=== PATIENT | male | born 1970 | race Caucasian/White ===

== ENCOUNTER 2016-07-19 01:48 | Emergency (ER) | payer OTHER ==
[~2016-07-19] VITALS: Ht 180.3 cm; Wt 109.0 kg
[~2016-07-19 01:48] MED LIST: BENZ1TAB2 PO; CYM60 PO; HMLI SC; INSUINJ4 SC; KLN1X PO; METF500T5 PO; OXYC1TAB3 PO; PRAZ5CAP2 PO; PRLSR20 PO; QUET1TAB34 PO; QUET1TAB37 PO; TOPI100T20 PO; ZOLP10TA PO
[2016-07-19 02:00] VITALS: TEMP 36.7; Ht 180.3 cm; Wt 109.0 kg
[2016-07-19] MEDS ORDERED: SODIUM CHLORIDE 0.9% 1000ML 1,000 ML IV ONE (02:15)
[2016-07-19] MEDS ORDERED: TRAZ100T29 PO (02:33)
[2016-07-19] MEDS ORDERED: BREX1TAB6 PO (02:34)
[2016-07-19 02:42] LABS: BASO % 0.1 %; BASO ABS # 0.01 K/uL (0-0.2); COMPLETE YES; EOS % 0.4 %; HEMATOCRIT 43.4 % (42-52); IG% 0.1 %; LYMPH % 26.8 %; LYMPH ABS # 1.79 K/uL (1.2-3.4); MEAN CELL VOLUME 87.1 fL (80-100); MEAN CORPUSCULAR HEMOGLOBIN 32.9 pg (25-34); MEAN CORPUSCULAR HGB CONC 37.8 g/dl (32-36); MEAN PLATELET VOLUME 10.5 fL (7.4-10.4); MONO % 6.7 %; NEUT % 65.9 %; PLATELET COUNT 126 K/uL (130-400); RED BLOOD COUNT 4.98 M/uL (4.7-6.1); WHITE BLOOD COUNT 6.67 K/uL (4.8-10.8)
[2016-07-19 03:11] LABS: ALT/SGPT 38 U/L (12-78); AST/SGOT 22 U/L (15-37); BLOOD UREA NITROGEN 8 mg/dl (7-18); BUN/CREATININE RATIO 9.2 (10-20); CALCIUM 8.9 mg/dl (8.5-10.1); CARBON DIOXIDE 24 mmol/L (21-32); CHLORIDE 105 mmol/L (98-107); CREATININE 0.86 mg/dl (0.60-1.40); GLUCOSE 165 mg/dl (70-99); POTASSIUM 2.9 mmol/L (3.5-5.1); SODIUM 142 mmol/L (136-145)
[2016-07-19 03:22] LABS: ALB/GLOB RATIO 1.4 (0.9-2); ALKALINE PHOSPHATASE 62 U/L (45-117)
[2016-07-19] MEDS ORDERED: POTASSIUM CHLORIDE 10 MEQ / 100ML WTR IV STA (05:41)
--- NOTE | 2016-07-19 05:52 | EMERGENCY ROOM VISIT NOTE ---
History First contact with patient: 01:48 Chief Complaint: FALL Stated Complaint: FALL/SYNCOPE History of Present Illness The patient is a 45 year old male who presents to the Emergency Room for evaluation of a fall versus syncopal episode that occurred about 45 minutes prior to arrival. Around 1 AM the patient was reportedly in his kitchen with his girlfriend cooking dinner. The patient reports that he became dizzy, and either passed out or fell. The patient was with loss of consciousness for 5-10 minutes according to the girlfriend. The patient arrives via ambulance with a hard cervical spine collar in place. The patient does not have reports of chest pain, chest tightness, shortness of breath, or extremity injury. The patient history is somewhat limited, as the patient is not distinctly recall all of the events that occurred. His girlfriend is not present here in the department for further questioning. The patient reports a mild headache and rates his discomfort a 5/10. He is a diabetic, but is not on blood thinners. Review of Systems More than 10 systems were reviewed and otherwise negative with the exception of history of present illness. Past Medical/Surgical History Medical Problems: (1) Benign hypertension (2) Bipolar disorder (3) Cholecystitis (4) Diabetes (5) Gastroesophageal reflux disease (6) History of cholecystectomy (7) Mood disorder (8) Right shoulder pain Family History Diabetes mellitus FH: heart disease Hypertension Social History Smoking Status: Never Smoker Alcohol Use: occasionally Drug Use: none Marital Status: Housing Status: lives with family Occupation Status: unemployed Current/Historical Medications Scheduled Benztropine Mesylate (Cogentin), 1 MG PO BID Brexpiprazole (Rexulti), 4 MG PO DIRECTED Clonazepam (Clonazepam), 1 MG PO TID Duloxetine HCl (Duloxetine HCl), 60 MG PO QAM Insulin Glargine (Lantus Solostar Pen), 24 UNITS SC HS Insulin Lispro (Humalog), 6 UNITS SC TIDM Metformin Hcl Er (Glucophage Er), 500 MG PO BID Omeprazole (Prilosec), 40 MG PO BID Prazosin Hcl (Prazosin), 2 MG PO HS Quetiapine Fumarate (Seroquel), 100 MG PO QAM Topiramate (Topamax), 100 MG PO BID Trazodone Hcl (Trazodone), 100 MG PO HS Zolpidem Tartrate (Ambien), 10 MG PO HS Allergies Coded Allergies: Ziprasidone (Verified Allergy, Severe, FACIAL SWELLING; RASH, 07/19/16) Chlorpromazine (Unverified Allergy, Unknown, unknown, 07/19/16) Physical Exam Vital Signs Date Time Temp Pulse Resp B/P Pulse Ox O2 Delivery O2 Flow Rate FiO2 07/19/16 05:13 85 18 135/68 97 Room Air 07/19/16 05:06 82 07/19/16 03:43 91 18 112/86 97 Room Air 07/19/16 02:00 36.7 85 18 125/82 97 Room Air 07/19/16 01:58 88 Physical Exam VITALS: Vitals are noted on the nurse's note and reviewed by myself. Vital signs stable. GENERAL: White male who is resting comfortably in his Emergency Department bed. He is not answering questions appropriately. He does appear confused. HEAD: Normocephalic atraumatic. EARS: External ear normal. External auditory canals clear, tympanic membranes pearly cook without erythema or effusion bilaterally. EYES: Pupils equal round and reactive to light and accommodation. Conjunctivae without injection, sclerae without icterus. Extraocular movements intact. NOSE: Patent, turbinates without inflammation or discharge. MOUTH: Mucous membranes moist. Tonsils are not enlarged. Pharynx without erythema, blood, or exudate. Uvula midline. Airway patent. NECK: Supple without nuchal rigidity. No lymphadenopathy. No thyromegaly. Cervical spine is nontender. HEART: Regular rate and rhythm without murmurs gallops or rubs. LUNGS: Clear to auscultation bilaterally without wheezes, rales or rhonchi. No retractions or accessory muscle use. MUSCULOSKELETAL: No muscle atrophy, erythema, or edema noted. Full range of motion without joint tenderness in all extremities. No obvious weakness. NEURO: Patient was not alert or oriented Medical Decision & Procedures ER Provider Diagnostic Interpretation: Preliminary Findings Only See Final Report For Complete Findings ADDENDUM - Added by Jordan Hernandez M.D. on 07/19/2016 4:23 AM (-08:00) Additional images available. Slight hyperdensity medial occipital lobe remains and may represent subarachnoid hemorrhage. mild hyperdensity along the tentorium bilaterally although more prominent on the left side. DDX includes small layering subdural hematomas although thought less likely, recent contrast administration or possibly dural sinus thrombosis. Correlate clinically and consider CT follow-up with coronal and sagittal imaging or MRI/MRV as appropriate CT HEAD: Prior 04/07/16 Minimal hyperdensity in the left occipital lobe medial to the occipital horn is new since prior. Possible small amount of subarachnoid hemorrhage. Mildly hyperdense asymmetric left tentorium more prominent than the prior study. Possible small layering left subdural hematoma. No midline shift, mass effect. No skull fracture. Partially visualized paranasal sinuses and mastoid air cells are clear CT C SPINE: No fracture or malalignment. No prevertebral soft tissues swelling Laboratory Results 07/19/16 02:00 Red Blood Count 4.98, Mean Corpuscular Volume 87.1, Mean Corpuscular Hemoglobin 32.9, Mean Corpuscular Hemoglobin Concent 37.8, Mean Platelet Volume 10.5, Neutrophils (%) (Auto) 65.9, Lymphocytes (%) (Auto) 26.8, Monocytes (%) (Auto) 6.7, Eosinophils (%) (Auto) 0.4, Basophils (%) (Auto) 0.1, Neutrophils # (Auto) 4.38, Lymphocytes # (Auto) 1.79, Monocytes # (Auto) 0.45, Eosinophils # (Auto) 0.03, Basophils # (Auto) 0.01 07/19/16 02:00 Test 07/19/16 02:00 07/19/16 02:05 White Blood Count 6.67 K/uL (4.8-10.8) Red Blood Count 4.98 M/uL (4.7-6.1) Hemoglobin 16.4 g/dL (14.0-18.0) Hematocrit 43.4 % (42-52) Mean Corpuscular Volume 87.1 fL (80-100) Mean Corpuscular Hemoglobin 32.9 pg (25-34) Mean Corpuscular Hemoglobin Concent 37.8 g/dl (32-36) Platelet Count 126 K/uL (130-400) Mean Platelet Volume 10.5 fL (7.4-10.4) Neutrophils (%) (Auto) 65.9 % Lymphocytes (%) (Auto) 26.8 % Monocytes (%) (Auto) 6.7 % Eosinophils (%) (Auto) 0.4 % Basophils (%) (Auto) 0.1 % Neutrophils # (Auto) 4.38 K/uL (1.4-6.5) Lymphocytes # (Auto) 1.79 K/uL (1.2-3.4) Monocytes # (Auto) 0.45 K/uL (0.11-0.59) Eosinophils # (Auto) 0.03 K/uL (0-0.5) Basophils # (Auto) 0.01 K/uL (0-0.2) RDW Standard Deviation 41.1 fL (36.4-46.3) RDW Coefficient of Variation 12.8 % (11.5-14.5) Immature Granulocyte % (Auto) 0.1 % Immature Granulocyte # (Auto) 0.01 K/uL (0.00-0.02) Prothrombin Time 11.0 SECONDS (9.0-12.0) Prothromb Time International Ratio 1.0 (0.9-1.1) Activated Partial Thromboplast Time 25.1 SECONDS (21.0-31.0) Partial Thromboplastin Ratio 1.0 Anion Gap 13.0 mmol/L (3-11) Est Creatinine Clear Calc Drug Dose 134.7 ml/min Estimated GFR () 120.5 Estimated GFR (Non- 104.0 BUN/Creatinine Ratio 9.2 (10-20) Calcium Level 8.9 mg/dl (8.5-10.1) Total Bilirubin 0.9 mg/dl (0.2-1) Aspartate Amino Transf (AST/SGOT) 22 U/L (15-37) Alanine Aminotransferase (ALT/SGPT) 38 U/L (12-78) Alkaline Phosphatase 62 U/L (45-117) Troponin I < 0.015 ng/ml (0-0.045) Total Protein 7.3 gm/dl (6.4-8.2) Albumin 4.2 gm/dl (3.4-5.0) Globulin 3.1 gm/dl (2.5-4.0) Albumin/Globulin Ratio 1.4 (0.9-2) Lipase 270 U/L (73-393) Thyroid Stimulating Hormone (TSH) 3.060 uIu/ml (0.300-4.500) Medications Administered Medications (Trade) Dose Ordered Sig/Adelina Route Start Time Stop Time Status Last Admin Dose Admin Sodium Chloride (Nss 1000ml) 1,000 ml @ 999 mls/hr Q1H1M ONCE IV 07/19/16 02:15 07/19/16 03:15 DC 07/19/16 02:09 999 MLS/HR ED Course Physical exam and history were performed. Nursing notes and EMR were reviewed. Patient appears to have suffered a fall versus syncopal episode prior to arrival. Patient is fairly well-known to the emergency department, and although he has an odd affect at baseline, he does appear altered from his norm. The patient is in a hard cervical spine collar and is having difficulty answering questions appropriately. He does not have significant outward signs of trauma on exam. IV access was established and labs were obtained. The patient was hydrated with normal saline. CT scans of head and neck were performed. The case was discussed with my attending physician, Dr. Coelho, who remained closely involved in patient care decision making. The patient's blood work is as above and was reviewed. He does not have a significant elevated white blood cell count, anemia, bandemia, or gross electrolyte imbalance. INR is 1.0. Potassium is 2.9 and this was repleted through the IV. His sugar is elevated at 165, but he is diabetic. Troponin is negative 1. The patient CT scans are as above, and I discussed them with the radiologist. The patient appears to have both a subarachnoid and subdural bleed. We were able to contact the patient's girlfriend, Lucina Shaw ([phone]), who was not able to get in touch with the patient's parents. Unfortunately we do not have trauma or neurosurgical services at this facility, and he will need to be transfered to tertiary care facility. The patient case was discussed with [facility], [facility] and [facility], who accepts the patient in transfer. The patient remained in stable condition throughout his remaining emergency room course. He was transferred via ALS. The chart was completed utilizing [employer] Speech Voice Recognition Software. Grammatical errors, random word insertions, pronoun errors, and incomplete sentences are an occasional consequence of this system due to software limitations, ambient noise, and hardware issues. Any formal questions or concerns about the content, text, or information contained within the body of this dictation should be directly addressed to the provider for clarification. . Medical Decision Differential diagnosis: Etiologies such as fracture, dislocation, intra-abdominal, pneumothorax, intrathoracic , intracranial, neurologic, as well as other traumatic pathologies were entertained. Impression Primary Impression: Head injury with loss of consciousness Additional Impressions: Subarachnoid bleed, Subdural bleeding, Altered mental status Critical Care I have personally spent greater than 60 minutes of critical care time in the direct management of this patient. This includes bedside care, interpretation of diagnostic studies, and testing, discussion with consultants, patient, and family members, and other required patient management activities. This 60 minutes is in excess of all separately billable procedures. Departure Information Referrals Ada Bagley M.D. (PCP) Patient Instructions A Signature Page, My [facility]
[2016-07-19 06:27] VITALS: BP 117/79; PULSE 85; O2SAT 98
--- NOTE | 2016-07-19 07:17 | DIAGNOSTIC IMAGING REPORT ---
CT OF THE CERVICAL SPINE CLINICAL HISTORY: Neck pain status post trauma. Dizziness. COMPARISON STUDY: 04/07/2016 CT DOSE: 1176.79 mGy.cm TECHNIQUE: CT scan of the cervical spine was performed from the skull base to the thoracic inlet. Images are reviewed in the axial, sagittal, and coronal planes. IV contrast was not administered for this examination. FINDINGS: The visualized portions of the lung apices reveal no evidence of pneumothorax. The prevertebral soft tissues are normal. No fractures or subluxations are visualized. There is slight hyperdensity of the tentorium. Please see head CT report. IMPRESSION: No evidence of acute fracture or traumatic subluxation. Electronically signed by: Jimmy Willis M.D. 07/19/2016 7:15 AM
--- NOTE | 2016-07-19 07:29 | DIAGNOSTIC IMAGING REPORT ---
CT OF THE HEAD WITHOUT CONTRAST CLINICAL HISTORY: Fall. Dizziness. COMPARISON STUDY: Head CT April 07, 2016. TECHNIQUE: Helical axial images of the head were obtained without IV contrast. Automated exposure control was utilized for the study. FINDINGS: There is slight asymmetric hyperdensity along the left aspect of the tentorium which is new since head CT of April 07, 2016. There is a punctate hyperdense focus along the left posterior lateral aspect of the fourth ventricle shown on axial image 9. There is also subtle hyperdensity adjacent to the occipital horn of the left lateral ventricle within the occipital lobe shown on image 16 of 32. The basilar cisterns are patent. There may be trace hemorrhage along the inferior falx as well. No calvarial fracture is identified. IMPRESSION: 1. Subtle hyperdensity along the tentorium, greater on the left which is new since prior head CT. The findings suggests trace acute subdural blood. 2. Small hyperdense focus within the left occipital lobe, adjacent to the occipital horn of the left lateral ventricle which could reflect trace hemorrhage, possibly subarachnoid. 3. Suspected punctate hemorrhage along the left posterior lateral aspect of the fourth ventricle as well as the inferior falx. A short-term follow-up head CT in 12 to 24 hours is recommended to reevaluate these sites of intracranial hemorrhage. Electronically signed by: Harpal Buck M.D. 07/19/2016 7:27 AM
== END 2016-07-19 06:30 | disposition short-term general hospital (02) ==
LOC: C.EDA 01:48 → EDBD 01:48 → C.EDA 06:30
DX: S06.6X1A Traumatic subarachnoid hemorrhage with loss of consciousness of 30 minutes or less, initial encounter (principal); S06.5X1A Traumatic subdural hemorrhage with loss of consciousness of 30 minutes or less, initial encounter; R42 Dizziness and giddiness; R41.82 Altered mental status, unspecified; E11.65 Type 2 diabetes mellitus with hyperglycemia; Z79.84 Long term (current) use of oral hypoglycemic drugs; Z79.4 Long term (current) use of insulin; F31.9 Bipolar disorder, unspecified; K21.9 Gastro-esophageal reflux disease without esophagitis; I10 Essential (primary) hypertension; W19.XXXA Unspecified fall, initial encounter; Y93.G3 Activity, cooking and baking; Y92.010 Kitchen of single-family (private) house as the place of occurrence of the external cause; Y99.8 Other external cause status

== ENCOUNTER 2017-04-30 14:21 | Emergency (ER) | payer OTHER ==
[~2017-04-30] VITALS: Ht 182.9 cm; Wt 108.0 kg
[~2017-04-30 14:21] MED LIST changes: +BREX1TAB6 PO; -OXYC1TAB3 PO; -QUET1TAB37 PO; +TRAZ100T29 PO
[2017-04-30 14:28] VITALS: TEMP 36.3; Ht 182.9 cm; Wt 108.0 kg
[2017-04-30] MEDS ORDERED: HALO5TAB PO (14:55)
[2017-04-30] MEDS ORDERED: PNC/500 PO (14:55)
[2017-04-30] MEDS ORDERED: TEMA30CA4 PO (14:55)
[2017-04-30] MEDS ORDERED: PRAZ2CAP2 PO (14:55)
[2017-04-30] MEDS ORDERED: TRAZ1TAB52 PO (14:55)
[2017-04-30] MEDS ORDERED: CYM20 PO (14:55)
[2017-04-30] MEDS ORDERED: DIAZ-165 PO (14:55)
[2017-04-30] MEDS ORDERED: DIAZ10TA PO (14:55)
[2017-04-30 15:28] LABS: BASO % 0.1 %; BASO ABS # 0.01 K/uL (0-0.2); COMPLETE YES; EOS % 0.1 %; HEMATOCRIT 45.2 % (42-52); IG% 0.1 %; LYMPH % 13.4 %; LYMPH ABS # 0.91 K/uL (1.2-3.4); MEAN CELL VOLUME 86.9 fL (80-100); MEAN CORPUSCULAR HEMOGLOBIN 32.3 pg (25-34); MEAN CORPUSCULAR HGB CONC 37.2 g/dl (32-36); MEAN PLATELET VOLUME 11.1 fL (7.4-10.4); MONO % 6.2 %; NEUT % 80.1 %; PLATELET COUNT 123 K/uL (130-400); WHITE BLOOD COUNT 6.78 K/uL (4.8-10.8)
--- NOTE | 2017-04-30 15:33 | EMERGENCY ROOM VISIT NOTE ---
History First contact with patient: 14:39 Chief Complaint: SYNCOPE Stated Complaint: DIZZINESS Nursing Triage Summary: pt to the ED via EMS from home where he had 2 syncopal episodes and he states he has been feeling under the weather with n/v and trouble with his 17 year old son History of Present Illness The patient is a 46 year old male who presents to the Emergency Room with complaints of syncope -Pt describes one syncopal episode this afternoon when standing from seated position. -Pt reports being in a argument with his son prior to the episode and reports being very emotional. Pt said that he was fuming about the argument and when he stood up he began to feel very dizzy and loss consciousness -There was no witness to his fall, but the patient denies hitting his head when falling. The patient says that his watch case polisher was in the other room at the time of the fall and heard him fall and subsequently urged him to come to the ED to be evaluated. -The patient has no complaints currently, except for feeling fatigued. -Prior to the fall, pt denies CP, SOB, visual changes -Pt denies recent h/o CP, SOB, cough, palpation, leg swelling -Pt denies a PMH of seizure. -No recent viral infection. No tinnitus or ear pain. -After the episode, the pt denies any weakness or sensation loss. -Pt has a PMHx of Schizophrenia, PTSD or anxiety -Pt has seen a snowmaker in the past after episodes of what he describes as anxiety attacks. Pt reports normal workup at that time -Pt does report PMHx of T2DM. Review of Systems see below Constitutional: No fever, No chills, No sweats Respiratory: No cough, No sputum, No wheezing, No shortness of breath Cardiovascular: No chest pain, No orthopnea, No edema, No palpitations Abdomen: No pain, No nausea, No vomiting, No diarrhea Neurologic: No memory loss, No paralysis, No weakness, No numbness/tingling , No balance problems Psychiatric: + anxiety Past Medical/Surgical History Medical Problems: (1) Benign hypertension (2) Bipolar disorder (3) Cholecystitis (4) Diabetes (5) Gastroesophageal reflux disease (6) History of cholecystectomy (7) Mood disorder (8) Right shoulder pain Family History Diabetes mellitus FH: heart disease Hypertension Social History Smoking Status: Never Smoker Smokeless Tobacco Use: Yes Alcohol Use: occasionally Drug Use: none Marital Status: Housing Status: lives with family Occupation Status: unemployed Current/Historical Medications Scheduled Brexpiprazole (Rexulti), 4 MG PO DAILY Diazepam (Valium), 5 MG PO DAILY@1700 Diazepam (Valium), 10 MG PO BID Duloxetine HCl (Duloxetine HCl), 20 MG PO DAILY Haloperidol (Haldol), 7.5 MG PO DAILY Metformin Hcl Er (Glucophage Er), 500 MG PO BID Omeprazole (Prilosec), 40 MG PO DAILY Penicillin V Potassium (Penicillin V Potassium), 500 MG PO QID Prazosin Hcl (Prazosin), 2 MG PO TID Temazepam (Restoril), 30 MG PO HS Trazodone Hcl (Desyrel), 300 MG PO HS Physical Exam Vital Signs Date Time Temp Pulse Resp B/P (MAP) Pulse Ox O2 Delivery O2 Flow Rate FiO2 04/30/17 16:42 73 20 111/76 94 Room Air 04/30/17 14:38 Nasal Cannula 2.0 04/30/17 14:28 86 04/30/17 14:28 36.3 93 20 112/83 88 Room Air Physical Exam see below General Appearance: WD/WN, no apparent distress Head: normocephalic, atraumatic Eyes: normal inspection, PERRL, EOMI, sclerae normal, funduscopic exam normal Respiratory/Chest: chest non-tender, lungs clear, normal breath sounds, no respiratory distress, no accessory muscle use Cardiovascular: regular rate, rhythm, no edema, no gallop, no murmur Neurologic/Psych: director wholesale II-XII nml as tested, no motor/sensory deficits, alert , normal mood/affect, normal reflexes, oriented x 3 Medical Decision & Procedures Laboratory Results 04/30/17 15:10 Red Blood Count 5.20, Mean Corpuscular Volume 86.9, Mean Corpuscular Hemoglobin 32.3, Mean Corpuscular Hemoglobin Concent 37.2, Mean Platelet Volume 11.1, Neutrophils (%) (Auto) 80.1, Lymphocytes (%) (Auto) 13.4, Monocytes (%) (Auto) 6.2, Eosinophils (%) (Auto) 0.1, Basophils (%) (Auto) 0.1, Neutrophils # (Auto) 5.42, Lymphocytes # (Auto) 0.91, Monocytes # (Auto) 0.42, Eosinophils # (Auto) 0.01, Basophils # (Auto) 0.01 04/30/17 15:10 Test 04/30/17 15:10 04/30/17 15:41 White Blood Count 6.78 K/uL (4.8-10.8) Red Blood Count 5.20 M/uL (4.7-6.1) Hemoglobin 16.8 g/dL (14.0-18.0) Hematocrit 45.2 % (42-52) Mean Corpuscular Volume 86.9 fL (80-100) Mean Corpuscular Hemoglobin 32.3 pg (25-34) Mean Corpuscular Hemoglobin Concent 37.2 g/dl (32-36) Platelet Count 123 K/uL (130-400) Mean Platelet Volume 11.1 fL (7.4-10.4) Neutrophils (%) (Auto) 80.1 % Lymphocytes (%) (Auto) 13.4 % Monocytes (%) (Auto) 6.2 % Eosinophils (%) (Auto) 0.1 % Basophils (%) (Auto) 0.1 % Neutrophils # (Auto) 5.42 K/uL (1.4-6.5) Lymphocytes # (Auto) 0.91 K/uL (1.2-3.4) Monocytes # (Auto) 0.42 K/uL (0.11-0.59) Eosinophils # (Auto) 0.01 K/uL (0-0.5) Basophils # (Auto) 0.01 K/uL (0-0.2) RDW Standard Deviation 41.0 fL (36.4-46.3) RDW Coefficient of Variation 12.8 % (11.5-14.5) Immature Granulocyte % (Auto) 0.1 % Immature Granulocyte # (Auto) 0.01 K/uL (0.00-0.02) Activated Partial Thromboplast Time 24.5 SECONDS (21.0-31.0) Partial Thromboplastin Ratio 0.9 Anion Gap 10.0 mmol/L (3-11) Est Creatinine Clear Calc Drug Dose 133.3 ml/min Estimated GFR () 119.1 Estimated GFR (Non- 102.8 BUN/Creatinine Ratio 7.1 (10-20) Calcium Level 8.1 mg/dl (8.5-10.1) Magnesium Level 2.1 mg/dl (1.8-2.4) Total Bilirubin 0.8 mg/dl (0.2-1) Aspartate Amino Transf (AST/SGOT) 30 U/L (15-37) Alanine Aminotransferase (ALT/SGPT) 50 U/L (12-78) Alkaline Phosphatase 72 U/L (45-117) Troponin I < 0.015 ng/ml (0-0.045) Total Protein 6.7 gm/dl (6.4-8.2) Albumin 3.6 gm/dl (3.4-5.0) Globulin 3.1 gm/dl (2.5-4.0) Albumin/Globulin Ratio 1.2 (0.9-2) Venous Blood pH 7.45 (7.36-7.41) Venous Blood Partial Pressure CO2 34 mmHg (38.0-50.0) Venous Blood Partial Pressure O2 60 mmHg Venous Blood HCO3 23 mmol/L Venous Blood Oxygen Saturation 90.2 % Venous Blood Base Excess 0.0 mEq/L Medications Administered Medications (Trade) Dose Ordered Sig/Adelina Route Start Time Stop Time Status Last Admin Dose Admin Potassium Chloride (Vero Ciel Elix) 40 meq NOW STAT PO 04/30/17 16:26 04/30/17 16:28 DC 04/30/17 16:45 40 MEQ ECG Indication: syncope Rate (beats per minute): 79 Rhythm: sinus rhythm Findings: no ectopy, other (possible LV enlargement ) ED Course 1500 History and physical performed 1510 labs imaging ordered 1530 accessed labs, CXR, ECG 1600 Reaccessed 02 on 1L 1630 Pt off 02--> 97 % 1700 Pt ready for discharge Medical Decision 46 yo male comes into the ED with one episode of syncope Considering the following differential: vasovagal syncope, orthostatic hypotension, arrhythmia, aortic stenosis, carotid stenosis, panic attacks, hypoglycemia, anemia, seizure Pt reports recently being under more intense stress. He reports syncopal episodes in the past when having panic attacks. Pt had normal troponin, normal EKG. Pt did have low potassium. Supplementation was administered. When the patient arrived to the ED his O2 Sats were 88%. 1 L of O2 was given and the patients sats went back up to 97% and remained in the high 90's after discontinuing O2. Considering low O2 sats, CXR and VBG's were ordered. Pt was not seen to be retaining CO2 and CXR did not show any acute pathology. Sats on admission appears to be an aberrant reading. Pt syncopal episode is most likely vasovagal in etiology. Head CT was not ordered at this time for the following reasons: pt denies head injury, no signs of injury on physical exam, normal neurologic exam. Pt was discharged and advised to follow-up with PCP. Impression Primary Impression: Syncope Departure Information Dispostion Home / Self-Care Condition GOOD Referrals Ada Bagley M.D. (PCP) Patient Instructions My [facility] Additional Instructions Mr. Arce, You came to the ED to be evaluated after passing out and falling. We did some test to check you cardiac function. All test were normal, except for a slightly low potassium level. We gave you a supplement for this in the hospital. Alterations in you heart rate could be the likely cause of your passing out. This is more so likely considering the stress that you report being under. Please follow up with your primary care physician in the next week. If the symptoms of lightheadedness or passing out persist, please follow up sooner.
[2017-04-30 15:37] LABS: PARTIAL THROMBOPLASTIN RATIO 0.9
--- NOTE | 2017-04-30 15:43 | EMERGENCY ROOM VISIT NOTE ---
ED Visit Note First contact with patient: 14:39 The patient was seen and examined with Dr. Cabrera-alisha. I agree with the history, physical and findings. Please see the note for disposition and details. Patient presented s/p syncope. Patient no h/o of seizures. No obvious signs of trauma. A benign and non-focal neuro exam. EKG w/o acute arrythmia that would require medical intervention noted. Patient mother stated this has happened before 2 to stress. He was stressed at time of incident. Also of note, had positional change. Patient did have ?hypoxia initially; however, after placing pulse ox and a separate finger, patient had normal O2. Less likely PE given Wells 0. Non focal neuro exam, no blood thinners, no obvious signs of trauma, no need for CT brain and less likely ICH/CVA. Patient tolerated PO. Blood work fairly unremarkable. D/c'ed to home.
[2017-04-30 15:50] LABS: VEN BLD GAS O2 SATURATION 90.2 %
[2017-04-30 15:51] LABS: ALT/SGPT 50 U/L (12-78); AST/SGOT 30 U/L (15-37); BLOOD UREA NITROGEN 6 mg/dl (7-18); BUN/CREATININE RATIO 7.1 (10-20); CALCIUM 8.1 mg/dl (8.5-10.1); CARBON DIOXIDE 23 mmol/L (21-32); CHLORIDE 104 mmol/L (98-107); CREATININE 0.87 mg/dl (0.60-1.40); GLUCOSE 220 mg/dl (70-99); MAGNESIUM 2.1 mg/dl (1.8-2.4); POTASSIUM 3.1 mmol/L (3.5-5.1); SODIUM 137 mmol/L (136-145)
[2017-04-30 15:54] LABS: ALB/GLOB RATIO 1.2 (0.9-2); ALKALINE PHOSPHATASE 72 U/L (45-117)
[2017-04-30] MEDS ORDERED: MAGNESIUM OXIDE 400 MG TAB PO STA (16:26)
[2017-04-30] MEDS ORDERED: POTASSIUM CHLORIDE 20 MEQ/15 ML UDC PO STA (16:26)
--- NOTE | 2017-04-30 16:27 | DIAGNOSTIC IMAGING REPORT ---
CHEST 2 VIEWS ROUTINE HISTORY: 46 years-old Male o2 sats 90% RA acute hypoxia COMPARISON: Chest radiograph 01/19/2016 TECHNIQUE: Frontal and lateral views of the chest FINDINGS: Cardiomediastinal and hilar silhouettes are within normal limits. No pneumothorax, pleural effusion, focal airspace consolidation or overt pulmonary edema. Bones of the chest are grossly intact. Surgical clips of the upper abdomen suggest prior cholecystectomy, however not seen on the frontal view. IMPRESSION: No acute cardiopulmonary process. The above report was generated using voice recognition software. It may contain grammatical, syntax or spelling errors. Electronically signed by: Damion Maki M.D. 04/30/2017 4:26 PM Dictated Date/Time: 04/30/2017 4:25 PM
[2017-04-30 16:42] VITALS: BP 111/76; PULSE 73; O2SAT 94
== END 2017-04-30 16:59 | disposition home or self-care (01) ==
LOC: EDBD 14:21 → C.EDC 14:22
DX: R55 Syncope and collapse (principal); E11.9 Type 2 diabetes mellitus without complications; I10 Essential (primary) hypertension; K21.9 Gastro-esophageal reflux disease without esophagitis; F17.290 Nicotine dependence, other tobacco product, uncomplicated; Z90.49 Acquired absence of other specified parts of digestive tract; Z83.3 Family history of diabetes mellitus; Z82.49 Family history of ischemic heart disease and other diseases of the circulatory system; Z79.84 Long term (current) use of oral hypoglycemic drugs; Z79.899 Other long term (current) drug therapy

== ENCOUNTER 2017-05-25 18:37 | Emergency (ER) | payer OTHER ==
[~2017-05-25] VITALS: Ht 182.9 cm; Wt 109.6 kg
[~2017-05-25 18:37] MED LIST changes: -BENZ1TAB2 PO; +CYM20 PO; -CYM60 PO; +DIAZ-165 PO; +DIAZ10TA PO; +HALO5TAB PO; -HMLI SC; -INSUINJ4 SC; -KLN1X PO; +PNC/500 PO; +PRAZ2CAP2 PO; -PRAZ5CAP2 PO; -QUET1TAB34 PO; +TEMA30CA4 PO; -TOPI100T20 PO; -TRAZ100T29 PO; +TRAZ1TAB52 PO; -ZOLP10TA PO
[2017-05-25 18:52] VITALS: BP 169/100; PULSE 83; TEMP 36.9; O2SAT 96; Ht 182.9 cm; Wt 109.6 kg
[2017-05-25] MEDS ORDERED: HYDROCODONE/ACETAMOPHEN 5/325MG TAB PO STA (19:33)
--- NOTE | 2017-05-25 19:44 | EMERGENCY ROOM VISIT NOTE ---
ED Visit Note First contact with patient: 19:04 CHIEF COMPLAINT: Dental pain HISTORY OF PRESENT ILLNESS: This 46-year-old male patient presented to the emergency department with complaint of "mouth pain" for several weeks. He states that he has been seen by his dentist and was referred to see an oral surgeon, and is scheduled to have all of his teeth extracted on 06/20. He states that he has been placed on penicillin, which she has been taking. He states that his dentist has given him prescriptions for pain medicine previously , but he states he has run out of these and is here to see if we will give him any refills. They rate their pain a 10/10 and the ibuprofen and Tylenol they have been taking has not relieved the pain. Denies facial swelling, discharge from the mouth, difficulty swallowing, voice, difficulty breathing, fevers or chills. REVIEW OF SYSTEMS: A 6 system review of systems was completed with positives and pertinent negatives listed in the HPI. ALLERGIES: Reviewed in chart MEDICATIONS: Reviewed in chart PMH: Reviewed in chart SOCIAL HISTORY: Lives at home. States that he chews tobacco, but is trying to quit. PHYSICAL EXAM: Vitals are noted on the nurse's note and reviewed by myself. Vital signs stable, afebrile. GENERAL: Cooperative, in no acute distress, non- diaphoretic, well-developed well-nourished. Mouth: All the existing teeth are very carious, multiple broken off. The gum is not swollen or tender in any area of the mouth. No discharge or signs of an abscess. No edema in the floor of the mouth. The remainder of the pharynx and tonsils are without erythema, edema, or exudate. The airway is patent. There is no facial swelling, cervical or submandibular lymphadenopathy. The patient has overall very poor dental hygiene. EARS: External auditory canals clear, tympanic membranes pearly cook without erythema or effusion bilaterally. ED COURSE: I examined the patient. The patient appears calm, persistently rates his pain as 10/10, and is noted to sit in a chair in the exam room texting on his phone. I examined the patient, his teeth are very carious and overall very poor dental hygiene, but no evidence of acute gingivitis or periapical abscess. There is no facial swelling. Patient cannot pinpoint a particular tooth that is bothering him, so I do not see a utility in attempting a dental block at this time, as he states all of his teeth hurt. The patient states he is specifically here to get a refill of Vicodin. He states he did not discuss this with his dentist, who has provided him prescriptions for this recently. The patient is on multiple benzodiazepines which he states are for treatment of his schizophrenia. After examining the patient and reviewing his chart, I discussed with the patient that I am not comfortable providing him with a prescription for narcotics given multiple recent scripts provided by his dental provider, as well as his multiple benzodiazepines. I did offer him a single dose of Runge here to temporarily improve his pain, which he initially agreed to. I began to discuss [id number] medication management as well as nonpharmacologic management for the patient's pain, at which point he began to text on his phone. He then stated "don't bother giving me that 1 pill, if you aren't going to give me a prescription then just discharged me." The patient was encouraged to keep his scheduled appointment with his oral surgeon and to discuss pain management with his dentist. I discussed concerning symptoms that should prompt return to the emergency department with the patient, he verbalized understanding. Patient was discharged home in stable condition and ambulatory. Problem List Medical Problems: (1) Benign hypertension Status: Chronic (2) Bipolar disorder Status: Chronic (3) Cholecystitis Status: Resolved (4) Diabetes Status: Chronic (5) Gastroesophageal reflux disease Status: Chronic (6) History of cholecystectomy Status: Resolved (7) Mood disorder Status: Chronic (8) Right shoulder pain Status: Resolved Current/Historical Medications Scheduled Brexpiprazole (Rexulti), 4 MG PO DAILY Diazepam (Valium), 5 MG PO DAILY@1700 Diazepam (Valium), 10 MG PO BID Duloxetine HCl (Duloxetine HCl), 20 MG PO DAILY Haloperidol (Haldol), 7.5 MG PO DAILY Metformin Hcl Er (Glucophage Er), 500 MG PO BID Omeprazole (Prilosec), 40 MG PO DAILY Penicillin V Potassium (Penicillin V Potassium), 500 MG PO QID Prazosin Hcl (Prazosin), 2 MG PO TID Temazepam (Restoril), 30 MG PO HS Trazodone Hcl (Desyrel), 300 MG PO HS Allergies Coded Allergies: Ziprasidone (Verified Allergy, Severe, FACIAL SWELLING; RASH, 07/19/16) Chlorpromazine (Unverified Allergy, Unknown, unknown, 07/19/16) Vital Signs Date Time Temp Pulse Resp B/P (MAP) Pulse Ox O2 Delivery O2 Flow Rate FiO2 05/25/17 18:52 36.9 83 20 169/100 96 Room Air Departure Information Impression Primary Impression: Dental caries Additional Impressions: Pain, dental Poor dentition Dispostion Home / Self-Care Condition GOOD Referrals No Doctor, Assigned (PCP) Patient Instructions ED Tooth Pain, My [facility] [address] Additional Instructions Call your dentist or oral surgeon who have provided prescriptions for pain medication to you in the past, to discuss possible refills of this medication. Continue taking the penicillin as prescribed for the full course. You may take ibuprofen 600 mg (3 regular strength tablets) every 6-8 hours and/ or Tylenol 1000 mg (2 extra strength tablets) every 8 hours as needed for your pain. You can also swish and spit with warm salt water 3-4 times a day to help sooth your gums. You may try apply warm compresses to your face to help provide comfort as well. Please return to the emergency department for worsening symptoms, including pus drainage from the, facial swelling, difficulty swallowing, muffled voice, shortness of breath, changes in vision or hearing, or any other concerns. Problem Qualifiers
== END 2017-05-25 19:49 | disposition home or self-care (01) ==
LOC: C.EDB 18:38 → C.EDD 19:49
DX: K02.9 Dental caries, unspecified (principal); K08.89 Other specified disorders of teeth and supporting structures; F17.290 Nicotine dependence, other tobacco product, uncomplicated; E11.9 Type 2 diabetes mellitus without complications; K21.9 Gastro-esophageal reflux disease without esophagitis; F31.9 Bipolar disorder, unspecified; I10 Essential (primary) hypertension; Z90.49 Acquired absence of other specified parts of digestive tract; Z79.84 Long term (current) use of oral hypoglycemic drugs; Z79.899 Other long term (current) drug therapy; Z88.8 Allergy status to other drugs, medicaments and biological substances

== ENCOUNTER 2017-07-21 23:22 | Emergency (ER) | payer OTHER ==
[~2017-07-21] VITALS: Ht 180.3 cm; Wt 111.8 kg
[2017-07-21 23:26] VITALS: TEMP 37; O2SAT 98; Ht 180.3 cm; Wt 111.8 kg
[2017-07-21] MEDS ORDERED: ALUMINUM/MAGNESIUM SUSP 30 ML UDC PO STA (23:29)
--- NOTE | 2017-07-21 23:37 | EMERGENCY ROOM VISIT NOTE ---
History Report prepared by Izaiah: Carroll Dc Under the Supervision of: Dr. oZ Caicedo D.O. First contact with patient: 23:26 Stated Complaint: CHEST PAIN History of Present Illness The patient is a 46 year old male who presents to the Emergency Room with complaints of progressively worsening left sided chest pains that began this afternoon at 1300, 10.5 hours prior to arrival when the patient woke up. He states that his pain worsened with movement and is currently an 8/10 in severity. The patient claims that he has been trying to find a ride to the emergency department since 1300 today, until the pain worsened and he became light headed. This prompted him to phone for EMS. The patient is also complaining of a dry cough, and notes that he experienced a vomiting episode last night. He denies any recent travels. 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 A total of 10 systems reviewed and were otherwise negative. Past Medical & Surgical Medical Problems: (1) Benign hypertension (2) Bipolar disorder (3) Cholecystitis (4) Diabetes (5) Gastroesophageal reflux disease (6) History of cholecystectomy (7) Mood disorder (8) Right shoulder pain Family History Diabetes mellitus FH: heart disease Hypertension Social History Smoking Status: Never Smoker Alcohol Use: occasionally Drug Use: none Marital Status: Housing Status: lives with family Occupation Status: unemployed Current/Historical Medications Scheduled Alprazolam (Xanax), 1 MG PO HS Benztropine Mesylate (Benztropine Mesylate), 2 MG PO TID Brexpiprazole (Rexulti), 4 MG PO QAM Diazepam (Valium), 5 MG PO DAILY@7PM Diazepam (Valium), 10 MG PO BID Duloxetine HCl (Duloxetine HCl), 20 MG PO DAILY Omeprazole (Prilosec), 40 MG PO DAILY Prazosin Hcl (Prazosin), 4 MG PO HS Prazosin Hcl (Prazosin), 2 MG PO BID Thiothixene (Thiothixene), 2 MG PO TID Trazodone Hcl (Desyrel), 300 MG PO HS Allergies Coded Allergies: Ziprasidone (Verified Allergy, Severe, FACIAL SWELLING; RASH, 07/19/16) Chlorpromazine (Verified Allergy, Mild, RASH, 07/22/17) Cyclobenzaprine (Verified Allergy, Mild, RASH, 07/22/17) Tramadol (Verified Allergy, Mild, RASH, 07/22/17) Valproic Acid (Verified Adverse Reaction, Severe, NEURO DEFICITS, 07/22/17) Physical Exam Vital Signs Date Time Temp Pulse Resp B/P (MAP) Pulse Ox O2 Delivery O2 Flow Rate FiO2 07/22/17 03:10 73 17 123/85 96 07/22/17 02:00 73 17 120/74 97 Room Air 07/22/17 00:43 74 18 124/76 97 Room Air 07/21/17 23:30 78 07/21/17 23:26 98 Room Air 07/21/17 23:26 37.0 78 16 145/86 96 Room Air 07/21/17 23:26 98 Room Air Physical Exam GENERAL: alert, Edentulous, appears older than stated age. no distress, non- toxic EYE EXAM: normal conjunctiva, PERRL and EOM's grossly intact OROPHARYNX: no exudate, no erythema, lips, buccal mucosa, and tongue normal and mucous membranes are moist NECK: supple, no nuchal rigidity, no adenopathy, non-tender LUNGS: Clear to auscultation. Normal chest wall mechanics CHEST: There is mild reproducible left chest wall discomfort. HEART: no murmurs, S1 normal and S2 normal ABDOMEN: abdomen soft, non-tender, normo-active bowel sounds, no masses, no rebound or guarding. BACK: Back is symmetrical on inspection and there is no deformity, no midline tenderness, no CVA tenderness. SKIN: no rashes and no bruising UPPER EXTREMITIES: upper extremities are grossly normal. FROM, nml pulses. LOWER EXTREMITIES: No pitting edema. FROM, nml pulses. NEURO EXAM: Normal sensorium. Medical Decision & Procedures ER Provider Diagnostic Interpretation: Radiology results have been interpreted me. CHEST X-RAY: Study of the chest was reviewed and was negative for infiltrate, effusion, pneumothorax, or wide mediastinum. Laboratory Results 07/21/17 23:36 Red Blood Count 4.93, Mean Corpuscular Volume 88.6, Mean Corpuscular Hemoglobin 32.7, Mean Corpuscular Hemoglobin Concent 36.8, Mean Platelet Volume 10.2, Neutrophils (%) (Auto) 69.1, Lymphocytes (%) (Auto) 23.5, Monocytes (%) (Auto) 6.0, Eosinophils (%) (Auto) 1.2, Basophils (%) (Auto) 0.1, Neutrophils # (Auto) 5.56, Lymphocytes # (Auto) 1.89, Monocytes # (Auto) 0.48, Eosinophils # (Auto) 0.10, Basophils # (Auto) 0.01 07/21/17 23:36 Test 07/21/17 23:36 07/22/17 00:00 White Blood Count 8.05 K/uL (4.8-10.8) Red Blood Count 4.93 M/uL (4.7-6.1) Hemoglobin 16.1 g/dL (14.0-18.0) Hematocrit 43.7 % (42-52) Mean Corpuscular Volume 88.6 fL (80-100) Mean Corpuscular Hemoglobin 32.7 pg (25-34) Mean Corpuscular Hemoglobin Concent 36.8 g/dl (32-36) Platelet Count 148 K/uL (130-400) Mean Platelet Volume 10.2 fL (7.4-10.4) Neutrophils (%) (Auto) 69.1 % Lymphocytes (%) (Auto) 23.5 % Monocytes (%) (Auto) 6.0 % Eosinophils (%) (Auto) 1.2 % Basophils (%) (Auto) 0.1 % Neutrophils # (Auto) 5.56 K/uL (1.4-6.5) Lymphocytes # (Auto) 1.89 K/uL (1.2-3.4) Monocytes # (Auto) 0.48 K/uL (0.11-0.59) Eosinophils # (Auto) 0.10 K/uL (0-0.5) Basophils # (Auto) 0.01 K/uL (0-0.2) RDW Standard Deviation 41.6 fL (36.4-46.3) RDW Coefficient of Variation 13.0 % (11.5-14.5) Immature Granulocyte % (Auto) 0.1 % Immature Granulocyte # (Auto) 0.01 K/uL (0.00-0.02) Anion Gap 9.0 mmol/L (3-11) Est Creatinine Clear Calc Drug Dose 122.2 ml/min Estimated GFR () 110.0 Estimated GFR (Non- 94.9 BUN/Creatinine Ratio 12.2 (10-20) Calcium Level 8.3 mg/dl (8.5-10.1) Total Bilirubin 0.8 mg/dl (0.2-1) Aspartate Amino Transf (AST/SGOT) 26 U/L (15-37) Alanine Aminotransferase (ALT/SGPT) 45 U/L (12-78) Alkaline Phosphatase 78 U/L (45-117) Troponin I < 0.015 ng/ml (0-0.045) Total Protein 6.6 gm/dl (6.4-8.2) Albumin 3.4 gm/dl (3.4-5.0) Globulin 3.2 gm/dl (2.5-4.0) Albumin/Globulin Ratio 1.1 (0.9-2) Urine Opiates Screen NEG (NEG) Urine Methadone, Qualitative NEG (NEG) Urine Barbiturates NEG (NEG) Urine Phencyclidine (PCP) Level NEG (NEG) Ur Amphetamine/Methamphetamine NEG (NEG) MDMA (Ecstasy) Screen NEG (NEG) Urine Benzodiazepines Screen POS (NEG) Urine Cocaine Metabolite NEG (NEG) Urine Marijuana (THC) NEG (NEG) Laboratory results per my review. Medications Administered Medications (Trade) Dose Ordered Sig/Adelina Route Start Time Stop Time Status Last Admin Dose Admin Al Hydroxide/Mg Hydroxide (Maalox Susp) 30 ml NOW STAT PO 07/21/17 23:29 07/21/17 23:30 DC 07/21/17 23:41 30 ML Acetaminophen (Tylenol Tab) 1,000 mg NOW STAT PO 07/22/17 00:34 07/22/17 00:35 DC 07/22/17 00:55 1,000 MG Ketorolac Tromethamine (Toradol Inj) 30 mg NOW STAT IV 07/22/17 00:39 07/22/17 00:40 DC 07/22/17 00:58 30 MG Lidocaine (Lidoderm Patch 5%) 1 patch NOW STAT TD 07/22/17 02:16 07/22/17 02:17 DC 07/22/17 02:54 1 PATCH ECG Indication: chest pain Rate (beats per minute): 79 Rhythm: normal sinus Findings: no acute ischemic change, no ectopy, other (Normal [place]) ED Course 2323: The patient was evaluated in room A10. A complete history and physical exam was performed. 2329: Ordered Maalox Susp 30 mL PO. 0034: Ordered Acetaminophen 1000 mg PO. 0037: I checked on the patient at this time. He is still in pain and remains unchanged. 0039: Ordered Toradol 30 mg IV. 0216: Ordered Lidocaine 1 patch TD. 0245: Upon reevaluation, the patient is feeling better. I discussed the findings and the treatment plan with the patient. He verbalizes agreement and understanding. The patient was discharged home. Medical Decision Differential diagnosis: Etiologies such as cardiac ischemia, aortic dissection, pulmonary embolism, pneumonia, pneumothorax, musculoskeletal, infections, pericarditis, myocarditis , esophageal rupture, gastrointestinal, as well as others were entertained. HEART score 2 Pt well appearing here, anxious appearing, trop negative after >8 hours. Doubt dissection, tamponade, gi bleed, perf, pneumothorax, PE. Low risk wells and can r/o with PERC. No evidence of acute substance abuse. Given hx of substance abuse, no narcotics were given. Pain improved here, discussed f/u with PCP. VS stable throughout. Medication Reconcilliation Current Medication List: was personally reviewed by me Blood Pressure Screening Patient's blood pressure: Elevated blood pressure Blood pressure disposition: Elevated BP felt to be situational Impression Primary Impression: Chest pain Additional Impression: Anxiety Scribe Attestation The scribe's documentation has been prepared under my direction and personally reviewed by me in its entirety. I confirm that the note above accurately reflects all work, treatment, procedures, and medical decision making performed by me. Departure Information Dispostion Home / Self-Care Referrals No Doctor, Assigned (PCP) Additional Instructions Please call and follow-up with your family doctor. Please continue your regular medicines as prescribed. If you have any recurrent or worsening pain, please return to the emergency room. Please avoid acidic foods which could contribute to your reflux including alcohol, coffee, soda, tomato based products , and citrus fruits. Problem Qualifiers Primary Impression: Chest pain Chest pain type: unspecified Qualified Codes: R07.9 - Chest pain, unspecified
[2017-07-21 23:48] LABS: BASO % 0.1 %; BASO ABS # 0.01 K/uL (0-0.2); EOS % 1.2 %; HEMATOCRIT 43.7 % (42-52); HEMOGLOBIN 16.1 g/dL (14.0-18.0); IG# 0.01 K/uL (0.00-0.02); LYMPH % 23.5 %; LYMPH ABS # 1.89 K/uL (1.2-3.4); MEAN CELL VOLUME 88.6 fL (80-100); MEAN CORPUSCULAR HEMOGLOBIN 32.7 pg (25-34); MEAN CORPUSCULAR HGB CONC 36.8 g/dl (32-36); MEAN PLATELET VOLUME 10.2 fL (7.4-10.4); MONO ABS # 0.48 K/uL (0.11-0.59); NEUT % 69.1 %; NEUT ABS # 5.56 K/uL (1.4-6.5); PLATELET COUNT 148 K/uL (130-400); RED CELL DISTRIBUTION WIDTH SD 41.6 fL (36.4-46.3); WHITE BLOOD COUNT 8.05 K/uL (4.8-10.8)
[2017-07-22 00:05] LABS: ALBUMIN 3.4 gm/dl (3.4-5.0); ALT/SGPT 45 U/L (12-78); BLOOD UREA NITROGEN 12 mg/dl (7-18); CALCIUM 8.3 mg/dl (8.5-10.1); CARBON DIOXIDE 24 mmol/L (21-32); CREATININE 0.95 mg/dl (0.60-1.40); GLUCOSE 180 mg/dl (70-99); POTASSIUM 3.3 mmol/L (3.5-5.1); SODIUM 140 mmol/L (136-145)
[2017-07-22 00:10] LABS: ALKALINE PHOSPHATASE 78 U/L (45-117); AST/SGOT 26 U/L (15-37); TOTAL PROTEIN 6.6 gm/dl (6.4-8.2)
[2017-07-22] MEDS ORDERED: ACETAMINOPHEN 500 MG TAB PO STA (00:34)
[2017-07-22] MEDS ORDERED: KETOROLAC TROMETHAMINE 30 MG/ML VIAL IV STA (00:39)
[2017-07-22] MEDS ORDERED: PRAZ2CAP3 PO (00:43)
[2017-07-22] MEDS ORDERED: THIO2CAP2 PO (00:45)
[2017-07-22] MEDS ORDERED: ALPR1TAB3 PO (00:46)
[2017-07-22] MEDS ORDERED: BENZ2TAB6 PO (00:47)
[2017-07-22] MEDS ORDERED: LIDODERM (LIDOCAINE) PATCH 5% TD STA (02:16)
[2017-07-22 03:10] VITALS: BP 123/85; PULSE 73; O2SAT 96
--- NOTE | 2017-07-22 07:04 | DIAGNOSTIC IMAGING REPORT ---
CHEST ONE VIEW PORTABLE CLINICAL HISTORY: Chest pain. COMPARISON STUDY: Chest radiograph April 30, 2017. FINDINGS: Lung volumes are normal. No pneumothorax or pleural effusion is noted. Cardiomediastinal silhouette is normal. Pulmonary vascularity is normal. Lungs are clear. Appearance of the chest is unchanged. IMPRESSION: No acute cardiopulmonary findings. Electronically signed by: Harpal Buck M.D. 07/22/2017 7:02 AM Dictated Date/Time: 07/22/2017 7:02 AM
== END 2017-07-22 03:10 | disposition home or self-care (01) ==
LOC: EDBD 23:22 → C.EDA 23:23
DX: R07.9 Chest pain, unspecified (principal); F41.9 Anxiety disorder, unspecified; I10 Essential (primary) hypertension; F31.9 Bipolar disorder, unspecified; E11.9 Type 2 diabetes mellitus without complications; K21.9 Gastro-esophageal reflux disease without esophagitis; F10.21 Alcohol dependence, in remission; F14.21 Cocaine dependence, in remission; Z90.49 Acquired absence of other specified parts of digestive tract; Z83.3 Family history of diabetes mellitus; Z82.49 Family history of ischemic heart disease and other diseases of the circulatory system

== ENCOUNTER 2021-10-30 21:20 | Observation (INO) ==
[2021-10-30] MEDS ORDERED: ONDANSETRON INJ 2 MG/ML 2 ML VIAL IV STA (21:34)
[2021-10-30] MEDS ORDERED: PANTOprazole 80 MG in DEXTROSE 5% 100 ML IV ONE (21:34)
[2021-10-30] MEDS ORDERED: FAMOTIDINE 20MG IV PUSH 20 MG/5 ML SYR IV STA (21:34)
[2021-10-30] MEDS ORDERED: OCTREOTIDE ACETATE 50 MCG in SYRINGE 9.5 ML IV STA (21:34)
[2021-10-30] MEDS ORDERED: SODIUM CHLORIDE 0.9% 1000ML 1,000 ML IV SCH (21:45)
[2021-10-30 21:47] LABS: Basophils # (auto) 0.01 K/uL (0-0.2); Basophils % (auto) 0.1 %; Eosinophils % (auto) 1.3 %; Hematocrit (blood only) 43.7 % (42-52); Hemoglobin 15.8 g/dL (14.0-18.0); Immature Granulocytes # (auto) 0.02 K/uL (0.00-0.02); Immature Granulocytes % (auto) 0.3 %; Lymphocytes # (auto) 2.05 K/uL (1.2-3.4); Lymphocytes % (auto) 27.4 %; Mean Corpuscular Hemoglobin 30.9 pg (25-34); Mean Corpuscular Hgb Conc 36.2 g/dL (32-36); Mean Corpuscular Volume 85.5 fL (80-100); Mean Platelet Volume 9.8 fL (7.4-10.4); Monocytes # (auto) 0.45 K/uL (0.11-0.59); Neutrophils # (auto) 4.86 K/uL (1.4-6.5); Neutrophils % (auto) 64.9 %; Platelet Count 155 K/uL (130-400); RDW Coefficient of Variation 12.8 % (11.5-14.5); Red Blood Count 5.11 M/uL (4.7-6.1); White Blood Count 7.49 K/uL (4.8-10.8)
[2021-10-30 21:59] LABS: iSTAT Creatinine 0.7 mg/dl (0.6-1.3); iSTAT Hemoglobin 14.3 g/dl (14.0-18.0); iSTAT Ionized Calcium 1.22 mmol/l (1.12-1.32); iSTAT Potassium 3.9 mmol/L (3.3-5.0)
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
[2021-10-30 22:07] LABS: Partial Thromboplastin Ratio 0.9; Partial Thromboplastin Time 25.9 Seconds (21.0-31.0); Prothrombin Time 10.5 Seconds (9.0-12.0)
[2021-10-30 22:18] LABS: Troponin I High Sensitivity 6.5 pg/ml (0-20)
[2021-10-30 22:47] LABS: Albumin Globulin Ratio 1.8 (0.9-2); Albumin Level 4.2 gm/dl (3.4-5.0); BUN Creatinine Ratio 10.3 (10-20); Bilirubin,Total 0.6 mg/dl (0.2-1.0); Calcium 8.8 mg/dl (8.5-10.1); Creatinine Clr Calc Pharmacy 161.6 ml/min; Est GFR (African American) 127.3 ml/min; Est GFR (Non-African American) 109.8 ml/min; Globulin 2.4 gm/dl (2.5-4.0); Potassium 3.8 mmol/L (3.5-5.1); Total Protein 6.6 gm/dl (6.0-8.3)
[2021-10-30] MEDS ORDERED: OPTIRAY 320 100ml IV ONE (22:51)
[2021-10-31] MEDS ORDERED: SUMAtriptan succinate 100 MG TAB PO PRN (02:20)
[2021-10-31] MEDS ORDERED: PROMETHAZINE HCL 12.5 MG in SODIUM CHLORIDE 0.9% 50 ML IV PRN (02:20)
[2021-10-31] MEDS ORDERED: NITROGLYCERIN SL 0.4 MG/TAB TAB SL PRN (02:20)
[2021-10-31] MEDS ORDERED: tiZANidine HCL 4 MG TABLET PO STA (02:36)
[2021-10-31] MEDS ORDERED: lamoTRIgine 100 MG TAB PO STA (02:36)
[2021-10-31] MEDS ORDERED: PRAZOSIN HCL 1 MG CAP PO STA (02:36)
[2021-10-31] MEDS ORDERED: haloperidoL 5 MG TAB PO STA (02:36)
[2021-10-31] MEDS ORDERED: BENZTROPINE MESYLATE 1 MG TAB PO STA (02:36)
[2021-10-31] MEDS ORDERED: hydrOXYzine HCl 25 MG TAB PO STA (02:36)
[2021-10-31] MEDS: SODIUM CHLORIDE 0.9% 1000ML 1,000 ML IV SCH ×3 (03:31→18:00)
[2021-10-31] MEDS: PANTOprazole 40 MG in DEXTROSE 5% 100 ML IV SCH ×5 (03:31→23:00)
[2021-10-31 06:03] LABS: Basophils # (auto) 0.01 K/uL (0-0.2); Basophils % (auto) 0.2 %; Eosinophils # (auto) 0.06 K/uL (0-0.5); Eosinophils % (auto) 0.9 %; Hematocrit (blood only) 40.4 % (42-52); Hemoglobin 14.5 g/dL (14.0-18.0); Immature Granulocytes # (auto) 0.01 K/uL (0.00-0.02); Immature Granulocytes % (auto) 0.2 %; Lymphocytes # (auto) 1.42 K/uL (1.2-3.4); Lymphocytes % (auto) 21.4 %; Mean Corpuscular Hemoglobin 31.1 pg (25-34); Mean Corpuscular Hgb Conc 35.9 g/dL (32-36); Mean Corpuscular Volume 86.7 fL (80-100); Mean Platelet Volume 9.9 fL (7.4-10.4); Monocytes # (auto) 0.45 K/uL (0.11-0.59); Monocytes % (auto) 6.8 %; Neutrophils % (auto) 70.5 %; Platelet Count 124 K/uL (130-400); RDW Coefficient of Variation 13.1 % (11.5-14.5); RDW Standard Deviation 41.5 fL (36.4-46.3); Red Blood Count 4.66 M/uL (4.7-6.1); White Blood Count 6.65 K/uL (4.8-10.8)
[2021-10-31 06:33] LABS: BUN Creatinine Ratio 12.9 (10-20); Calcium 8.2 mg/dl (8.5-10.1); Creatinine Clr Calc Pharmacy 173.8 ml/min; Est GFR (African American) 132.2 ml/min; Est GFR (Non-African American) 114.1 ml/min; Magnesium 1.8 mg/dl (1.7-2.4); Potassium 3.7 mmol/L (3.5-5.1)
--- NOTE | 2021-10-31 07:04 | History and Physical Report ---
DATE OF ADMISSION: 10/31/2021. CHIEF COMPLAINT: Coffee-ground vomitus. HISTORY OF PRESENT ILLNESS: This is a 51-year-old male with past medical history significant for diabetes, hyperlipidemia, hypertension, GERD, nonalcoholic fatty liver disease, history of dental caries, orofacial dyskinesia, factor V Leiden mutation, schizoaffective disorder, bipolar disorder, generalized anxiety disorder, depression, posttraumatic stress disorder, who presents with coffee-ground vomitus. The patient states it is going on for the last 2 weeks, it is not getting better. In the last few days, he was not able to eat anything because whatever he is eating he is vomiting. He had some abdominal discomfort, did not notice any blood in the stools or black stools. His Hemoccult was positive in the ER. Denies any headache. No blurred visions, no earache, no runny nose, no sore throat, no cough, no fevers, no chest pain, no shortness of breath. The belly pain sometimes radiates to the chest. Normal bladder movements. Currently, resting comfortably and hemodynamically stable. ALLERGIES: ZIPRASIDONE, CHLORPROMAZINE, CYCLOBENZAPRINE, TRAMADOL, VALPROIC ACID. PAST MEDICAL HISTORY: As mentioned above. PAST SURGICAL HISTORY: Colonoscopy, left knee arthroscopy, left knee graft, cholecystectomy, right hand steel plate. MEDICATIONS: The patient is on albuterol 2 puffs inhalation q.i.d., Abilify 400 mg IM q. 28 days, atorvastatin 10 mg p.o. daily, benztropine 2 mg p.o. at bedtime, Colace 100 mg p.o. b.i.d., Trulicity 4.5 subcutaneous weekly, duloxetine 40 mg p.o. daily, haloperidol 20 mg p.o. at bedtime, hydroxyzine 125mg p.o. at bedtime, Lantus 10 units subcutaneous at bedtime, lactobacillus daily, Lamictal 100 mg p.o. b.i.d., lisinopril 2.5 mg p.o. daily, Milk of Magnesia p.r.n., metformin 100 mg in a.m. and 500 mg at bedtime, omeprazole 40 mg p.o. daily, MiraLax 17 g p.o. daily p.r.n., prazosin 2 mg p.o. a.m., prazosin 6 mg p.o. at bedtime, Fleets enema p.r.n., sumatriptan 100 mg p.o. p.r.n., Belsomra 5 mg p.o. at bedtime, tizanidine 4 mg p.o. at bedtime. FAMILY HISTORY: Significant for mother has diabetes, hypertension, fibromyalgia. SOCIAL HISTORY: Currently living in independent living. No smoking. Chews tobacco. He has been sober from alcohol for the last few years. No drug use. REVIEW OF SYSTEMS: As per HPI. Rest of the review of systems is negative. PHYSICAL EXAMINATION: GENERAL: The patient is of moderate build, not in acute distress. VITAL SIGNS: Temperature 36.6, pulse 79, respiratory rate 20, blood pressure 132/89, oxygen 96% on room air. HEENT: Pupils equal, round and reactive to light. Oral mucosa moist. NECK: No JVD, no neck masses. CARDIOVASCULAR: S1 and S2 heard. Regular rate and rhythm. No murmur, no gallop. RESPIRATORY SYSTEM: Normal AP diameter. No accessory muscle use. No wheezing, no crackles. ABDOMEN: Soft, bowel sounds present. Mild abdominal discomfort. No guarding, no rigidity. CENTRAL NERVOUS SYSTEM: Cranial nerves II through XII are grossly intact, nonfocal. EXTREMITIES: No edema, no erythema. LABORATORY DATA: WBC 7.4, hemoglobin 15.8, hematocrit 43.7, platelets 155. PT 10.5, INR 1, APTT 25.9. Sodium 137, potassium 3.8, chloride 105, bicarbonate 25, BUN 7, creatinine 0.6, serum glucose 165, calcium 8.8, total bilirubin 0.6, AST 31, ALT 40, alkaline phosphatase 78. High sensitivity troponin 6.5, Lipase 85. Stool occult blood positive. Ethyl alcohol less than 10. SARS-CoV-2 rapid test negative. IMAGING DATA: CT of abdomen and pelvis with contrast, no acute abnormality, normal appendix, status post cholecystectomy, hepatic steatosis, splenomegaly. No nephrolithiasis or obstructive uropathy. Mesenteric panniculitis. EKG: Poor quality data, undetermined rhythm at a rate of 70. ASSESSMENT AND PLAN: This is a 51-year-old male who presents with coffee-ground emesis. 1. Coffee-ground emesis: Possible gastrointestinal bleed. His hemoglobin is stable, but Hemoccult was positive. History of alcoholism, but he says he stopped drinking a few years back. ER started on Protonix and also gave a dose of octreotide. Will place him on IV Protonix drip. H and H q. 6 hours. Blood consent obtained by the ER. Closely monitor in tele floor. GI consult in the a.m. 3. History of diabetes: Hold his home medications. Cut back on Lantus to 5 units at bedtime as the patient is n.p.o. Hold metformin. Placed him on insulin sliding scale. Follow the blood sugars, follow HbA1c level. 4. History of schizoaffective disorder, history of bipolar disorder, history of generalized anxiety disorder, history of depression: Continue his home medications. 5. History of orofacial dyskinesia: Recently saw neurologist jorge morales. Mostly secondary to neuroleptics, advised to cut back. If could not able to cut back neuroleptics, recommended low-dose klonopin. Follow as outpatient. 6. History of hypertension: On lisinopril and Prazosin. Monitor his blood pressure. 7. History of hyperlipidemia: On statin. 8. Deep venous thrombosis prophylaxis: Sequential compression devices. DISPOSITION: Closely monitor in tele floor. Level 1 full code. Expect to discharge home and follow with family doctor. Job ID: [id number] [facility]
[2021-10-31] MEDS: ALBUTEROL HFA 8 GM INHALER INH SCH ×2 (07:17→11:09)
[2021-10-31 07:43] LABS: Estimated Average Glucose 114 mg/dl; Hemoglobin A1C 5.6 % (4.5-5.6)
[2021-10-31] MEDS: INSULIN ASPART PER UNIT SC SCH ×4 (08:37→20:49)
[2021-10-31] MEDS: ADVANCED PROBIOTIC 1250 MG CAPSULE PO PRN (08:43)
[2021-10-31] MEDS: ATORVASTATIN 10 MG TAB PO SCH (08:43)
[2021-10-31] MEDS: PRAZOSIN HCL 1 MG CAP PO SCH ×2 (08:43→20:52)
[2021-10-31] MEDS: lisinopril 2.5 MG TAB PO SCH (08:43)
[2021-10-31] MEDS: lamoTRIgine 100 MG TAB PO SCH ×2 (08:43→20:52)
[2021-10-31] MEDS: DULoxetine HCL 20 MG CAP PO SCH (08:43)
--- NOTE | 2021-10-31 08:54 | CT Scan Report ---
ABDOMEN AND PELVIS CT WITH IV CONTRAST CT DOSE: 1156.73 mGy.cm HISTORY: mid abd pain, GI bleed TECHNIQUE: Multiaxial CT images of the abdomen and pelvis were performed following the use of intrave nous contrast. A dose lowering technique was utilized adhering to the principles of ALARA. COMPARISON STUDY: Abdomen and pelvis CT 11/11/2020. FINDINGS: The lung bases are clear. No pneumoperitoneum. No pneumatosis. Tiny fat-containing left ing uinal hernia. Cholecystectomy. Hepatic steatosis. The main portal vein is patent. The spleen, adrenal glands, pancreas and kidneys are unremarkable. No hydronephrosis. No retroperitoneal lymphadenopathy . Normal caliber abdominal aorta. Mild central mesenteric panniculitis, unchanged. This is of doubtfu l clinical significance. No pelvic free fluid. Mild bladder wall thickening is again noted. This is l ikely chronic. No bowel wall thickening or obstruction. Normal appendix. IMPRESSION: 1. No bowel wall thickening or obstruction. 2. Normal appendix. 3. Mild bladder wall thickening, unchanged. This is likely chronic. 4. Hepatic steatosis. 5. Mild mesenteric panniculitis, unchanged. This is of doubtful clinical significance. 6. Cholecystectomy. ACT 112: Negative or not required by law. Electronically signed by: Gabriele Duenas M.D. 10/31/2021 8:50 AM
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
[2021-10-31 11:20] LABS: Hematocrit (blood only) 39.4 % (42-52); Hemoglobin 14.3 g/dL (14.0-18.0)
[2021-10-31] MEDS ORDERED: ALBUTEROL HFA 8 GM INHALER INH PRN (13:57)
--- NOTE | 2021-10-31 14:07 | Electrocardiogram Report ---
Test Reason : Blood Pressure : / mmHG Vent. Rate : 070 BPM Atrial Rate : 070 BPM P-R Int : 112 ms QRS Dur : 064 ms QT Int : 372 ms P-R-T Axes : 054 062 060 degrees QTc Int : 401 ms Poor data quality, interpretation may be adversely affected sinus rhythm When compared with ECG of 17-DEC-2020 09:24, Nonspecific T wave abnormality no longer evident in Inferior leads QT has shortened Confirmed by Tee Galarza ([id number]) on 10/31/2021 2:06:50 PM Referred By: REFERRED SELF Confirmed By:Daniel Galarza
[2021-10-31 17:26] LABS: Hematocrit (blood only) 39.3 % (42-52)
--- NOTE | 2021-10-31 17:44 | Hospitalist Progress Note ---
Date of Service October 31, 2021 Assessment & Plan (1) Acute GI bleeding: Plan: This is a 51-year-old male who presents with coffee-ground emesis. 1. Coffee-ground emesis: Possible gastrointestinal bleed. His hemoglobin is stable, but Hemoccult is positive. History of alcoholism, but he says he stopped drinking a few years back. CT abd. pelvis IMPRESSION: 1. No bowel wall thickening or obstruction. 2. Normal appendix. 3. Mild bladder wall thickening, unchanged. This is likely chronic. 4. Hepatic steatosis. 5. Mild mesenteric panniculitis, unchanged. This is of doubtful clinical significance. 6. Cholecystectomy. ER started on Protonix and also gave a dose of octreotide. Continue on IV Protonix drip. H and H q. 6 hours. Blood consent obtained by the ER. Closely monitor in tele floor. GI consulted DDX gastritis, pud, gastroparesis Plan for EGD tomorrow NPO 3. History of diabetes: Hold his home medications. Cut back on Lantus to 5 units at bedtime as the patient is n.p.o. Hold metformin. Placed him on insulin sliding scale. Follow the blood sugars, follow HbA1c level. 4. History of schizoaffective disorder, history of bipolar disorder, history of generalized anxiety disorder, history of depression: Continue his home medications. 5. History of orofacial dyskinesia: Recently saw neurologist for akathasia. Mostly secondary to neuroleptics, advised to cut back. If could not able to cut back neuroleptics, recommended low-dose klonopin. Follow as outpatient. 6. History of hypertension: On lisinopril and Prazosin. Monitor his blood pressure. 7. History of hyperlipidemia: On statin. DVT prophylaxis: SCDs. DISPOSITION: Closely monitor in tele floor. CODE: FULL Admission and Anticipated Discharge Date Admission Date: October 31, 2021 Subjective Patient seen in follow-up of coffee-ground emesis, abdominal pain Currently patient is laying in bed, in no acute distress, however he continues to complain of diffuse abdominal discomfort Reports he had bowel movement about 3 days ago, which was dark No emesis while in the hospital Denies fevers chills, chest pain or shortness of breath Review of Systems Review of Systems: All systems reviewed & are unremarkable except as noted in Subjective Physical Exam Physical Exam: GENERAL: The patient is of moderate build, not in acute distress. HEENT: NC/AT. Pupils equal, round and reactive to light. Oral mucosa moist. NECK: No JVD, no neck masses. CARDIOVASCULAR: S1 and S2 heard. Regular rate and rhythm. No murmur, no gall op. RESPIRATORY SYSTEM: Normal AP diameter. No accessory muscle use. No wheezing, no crackles. ABDOMEN: Soft, bowel sounds present. Mild abdominal discomfort. No guarding, no rigidity. NEURO/PSYCH:Sleepy but easily arousable, poor eye contact, answers questions appropriately. Moves extremities. No dysarthria. EXTREMITIES: No edema, no erythema. Results & Data Results & Data ([facility]) Vital Signs (Past 12 Hours) Vital Signs Temp Pulse Pulse Resp BP Pulse Ox 10/31/21 15:19 36.5 C 64 15 110/76 97 10/31/21 14:59 62 10/31/21 11:10 70 16 94 10/31/21 08:54 80 10/31/21 07:18 80 16 96 10/31/21 06:59 36.6 C 82 16 111/74 96 Laboratory Results 10/31/21 10/31/21 10/31/21 Range/Units Unknown 17:18 16:04 WBC (4.8-10.8) K/uL RBC (4.7-6.1) M/uL Hgb 14.0 (14.0-18.0) g/dL POC Hgb (14.0-18.0) g/dl Hct 39.3 L (42-52) % POC Hct (42-52) % MCV (80-100) fL MCH (25-34) pg MCHC (32-36) g/dL RDW Std Deviation (36.4-46.3) fL RDW Coeff of Mariama (11.5-14.5) % Plt Count (130-400) K/uL MPV (7.4-10.4) fL Immature Gran % (Auto) % Neut % (Auto) % Lymph % (Auto) % [place] % (Auto) % Eos % (Auto) % Baso % (Auto) % Neut # (Auto) (1.4-6.5) K/uL Lymph # (Auto) (1.2-3.4) K/uL [place] # (Auto) (0.11-0.59) K/uL Eos # (Auto) (0-0.5) K/uL Baso # (Auto) (0-0.2) K/uL Immature Gran # (Auto) (0.00-0.02) K/uL PT (9.0-12.0) Seconds INR (0.9-1.1) APTT (21.0-31.0) Seconds PTT Ratio POC Sodium (135-144) mmol/L Sodium (136-145) mmol/L POC Potassium (3.3-5.0) mmol/L Potassium (3.5-5.1) mmol/L POC Chloride (101-112) mmol/L Chloride (98-107) mmol/L Carbon Dioxide (21-32) mmol/L POC Total CO2 (24-31) mmol/L Anion Gap (3-11) POC Anion Gap (16-25) mmol/L POC BUN (7-18) mg/dl BUN (6-23) mg/dl Creatinine (0.6-1.4) mg/dl POC Creatinine (0.6-1.3) mg/dl Est Cr Clr Drug Dosing ml/min Est GFR ( Amer) ml/min Est GFR (Non-Af Amer) ml/min BUN/Creatinine Ratio (10-20) Glucose (70-99(Fasting)) mg/dl POC Glucose 128 H (70-99) mg/dl POC Glucose (other) (70-99) mg/dl Estimat Average Glucose mg/dl Hemoglobin A1c (4.5-5.6) % Calcium (8.5-10.1) mg/dl POC Ioniz Calcium Bridget (1.12-1.32) mmol/l Magnesium (1.7-2.4) mg/dl Total Bilirubin (0.2-1.0) mg/dl AST (13-39) U/L ALT (7-52) U/L Alkaline Phosphatase (34-104) U/L Troponin I High Sens (0-20) pg/ml Total Protein (6.0-8.3) gm/dl Albumin (3.4-5.0) gm/dl Globulin (2.5-4.0) gm/dl Albumin/Globulin Ratio (0.9-2) Lipase (11-82) U/L Nasal Screen MRSA (PCR) Negative (Negative) POC Stool Occult Blood (Negative) Ethyl Alcohol mg/dL (<10.0) mg/dl SARS-CoV-2, RNA, NAAT (NEGATIVE) Blood Type Antibody Screen 10/31/21 10/31/21 10/31/21 Range/Units 11:07 11:02 07:49 WBC (4.8-10.8) K/uL RBC (4.7-6.1) M/uL Hgb 14.3 (14.0-18.0) g/dL POC Hgb (14.0-18.0) g/dl Hct 39.4 L (42-52) % POC Hct (42-52) % MCV (80-100) fL MCH (25-34) pg MCHC (32-36) g/dL RDW Std Deviation (36.4-46.3) fL RDW Coeff of Mariama (11.5-14.5) % Plt Count (130-400) K/uL MPV (7.4-10.4) fL Immature Gran % (Auto) % Neut % (Auto) % Lymph % (Auto) % [place] % (Auto) % Eos % (Auto) % Baso % (Auto) % Neut # (Auto) (1.4-6.5) K/uL Lymph # (Auto) (1.2-3.4) K/uL [place] # (Auto) (0.11-0.59) K/uL Eos # (Auto) (0-0.5) K/uL Baso # (Auto) (0-0.2) K/uL Immature Gran # (Auto) (0.00-0.02) K/uL PT (9.0-12.0) Seconds INR (0.9-1.1) APTT (21.0-31.0) Seconds PTT Ratio POC Sodium (135-144) mmol/L Sodium (136-145) mmol/L POC Potassium (3.3-5.0) mmol/L Potassium (3.5-5.1) mmol/L POC Chloride (101-112) mmol/L Chloride (98-107) mmol/L Carbon Dioxide (21-32) mmol/L POC Total CO2 (24-31) mmol/L Anion Gap (3-11) POC Anion Gap (16-25) mmol/L POC BUN (7-18) mg/dl BUN (6-23) mg/dl Creatinine (0.6-1.4) mg/dl POC Creatinine (0.6-1.3) mg/dl Est Cr Clr Drug Dosing ml/min Est GFR ( Amer) ml/min Est GFR (Non-Af Amer) ml/min BUN/Creatinine Ratio (10-20) Glucose (70-99(Fasting)) mg/dl POC Glucose 224 H 195 H (70-99) mg/dl POC Glucose (other) (70-99) mg/dl Estimat Average Glucose mg/dl Hemoglobin A1c (4.5-5.6) % Calcium (8.5-10.1) mg/dl POC Ioniz Calcium Bridget (1.12-1.32) mmol/l Magnesium (1.7-2.4) mg/dl Total Bilirubin (0.2-1.0) mg/dl AST (13-39) U/L ALT (7-52) U/L Alkaline Phosphatase (34-104) U/L Troponin I High Sens (0-20) pg/ml Total Protein (6.0-8.3) gm/dl Albumin (3.4-5.0) gm/dl Globulin (2.5-4.0) gm/dl Albumin/Globulin Ratio (0.9-2) Lipase (11-82) U/L Nasal Screen MRSA (PCR) (Negative) POC Stool Occult Blood (Negative) Ethyl Alcohol mg/dL (<10.0) mg/dl SARS-CoV-2, RNA, NAAT (NEGATIVE) Blood Type Antibody Screen 10/31/21 10/31/21 10/31/21 Range/Units 05:26 05:26 05:26 WBC 6.65 (4.8-10.8) K/uL RBC 4.66 L (4.7-6.1) M/uL Hgb 14.5 (14.0-18.0) g/dL POC Hgb (14.0-18.0) g/dl Hct 40.4 L (42-52) % POC Hct (42-52) % MCV 86.7 (80-100) fL MCH 31.1 (25-34) pg MCHC 35.9 (32-36) g/dL RDW Std Deviation 41.5 (36.4-46.3) fL RDW Coeff of Mariama 13.1 (11.5-14.5) % Plt Count 124 L (130-400) K/uL MPV 9.9 (7.4-10.4) fL Immature Gran % (Auto) 0.2 % Neut % (Auto) 70.5 % Lymph % (Auto) 21.4 % [place] % (Auto) 6.8 % Eos % (Auto) 0.9 % Baso % (Auto) 0.2 % Neut # (Auto) 4.70 (1.4-6.5) K/uL Lymph # (Auto) 1.42 (1.2-3.4) K/uL [place] # (Auto) 0.45 (0.11-0.59) K/uL Eos # (Auto) 0.06 (0-0.5) K/uL Baso # (Auto) 0.01 (0-0.2) K/uL Immature Gran # (Auto) 0.01 (0.00-0.02) K/uL PT (9.0-12.0) Seconds INR (0.9-1.1) APTT (21.0-31.0) Seconds PTT Ratio POC Sodium (135-144) mmol/L Sodium 137 (136-145) mmol/L POC Potassium (3.3-5.0) mmol/L Potassium 3.7 (3.5-5.1) mmol/L POC Chloride (101-112) mmol/L Chloride 105 (98-107) mmol/L Carbon Dioxide 26 (21-32) mmol/L POC Total CO2 (24-31) mmol/L Anion Gap 6 (3-11) POC Anion Gap (16-25) mmol/L POC BUN (7-18) mg/dl BUN 8 (6-23) mg/dl Creatinine 0.62 (0.6-1.4) mg/dl POC Creatinine (0.6-1.3) mg/dl Est Cr Clr Drug Dosing 173.8 ml/min Est GFR ( Amer) 132.2 ml/min Est GFR (Non-Af Amer) 114.1 ml/min BUN/Creatinine Ratio 12.9 (10-20) Glucose 180 H (70-99(Fasting)) mg/dl POC Glucose (70-99) mg/dl POC Glucose (other) (70-99) mg/dl Estimat Average Glucose 114 mg/dl Hemoglobin A1c 5.6 (4.5-5.6) % Calcium 8.2 L (8.5-10.1) mg/dl POC Ioniz Calcium Bridget (1.12-1.32) mmol/l Magnesium 1.8 (1.7-2.4) mg/dl Total Bilirubin (0.2-1.0) mg/dl AST (13-39) U/L ALT (7-52) U/L Alkaline Phosphatase (34-104) U/L Troponin I High Sens (0-20) pg/ml Total Protein (6.0-8.3) gm/dl Albumin (3.4-5.0) gm/dl Globulin (2.5-4.0) gm/dl Albumin/Globulin Ratio (0.9-2) Lipase (11-82) U/L Nasal Screen MRSA (PCR) (Negative) POC Stool Occult Blood (Negative) Ethyl Alcohol mg/dL (<10.0) mg/dl SARS-CoV-2, RNA, NAAT (NEGATIVE) Blood Type Antibody Screen 10/30/21 10/30/21 10/30/21 Range/Units 21:56 21:46 21:43 WBC (4.8-10.8) K/uL RBC (4.7-6.1) M/uL Hgb (14.0-18.0) g/dL POC Hgb 14.3 (14.0-18.0) g/dl Hct (42-52) % POC Hct 42 (42-52) % MCV (80-100) fL MCH (25-34) pg MCHC (32-36) g/dL RDW Std Deviation (36.4-46.3) fL RDW Coeff of Mariama (11.5-14.5) % Plt Count (130-400) K/uL MPV (7.4-10.4) fL Immature Gran % (Auto) % Neut % (Auto) % Lymph % (Auto) % [place] % (Auto) % Eos % (Auto) % Baso % (Auto) % Neut # (Auto) (1.4-6.5) K/uL Lymph # (Auto) (1.2-3.4) K/uL [place] # (Auto) (0.11-0.59) K/uL Eos # (Auto) (0-0.5) K/uL Baso # (Auto) (0-0.2) K/uL Immature Gran # (Auto) (0.00-0.02) K/uL PT (9.0-12.0) Seconds INR (0.9-1.1) APTT (21.0-31.0) Seconds PTT Ratio POC Sodium 140 (135-144) mmol/L Sodium (136-145) mmol/L POC Potassium 3.9 (3.3-5.0) mmol/L Potassium (3.5-5.1) mmol/L POC Chloride 100 L (101-112) mmol/L Chloride (98-107) mmol/L Carbon Dioxide (21-32) mmol/L POC Total CO2 27 (24-31) mmol/L Anion Gap (3-11) POC Anion Gap 18.0 (16-25) mmol/L POC BUN 6 L (7-18) mg/dl BUN (6-23) mg/dl Creatinine (0.6-1.4) mg/dl POC Creatinine 0.7 (0.6-1.3) mg/dl Est Cr Clr Drug Dosing ml/min Est GFR ( Amer) ml/min Est GFR (Non-Af Amer) ml/min BUN/Creatinine Ratio (10-20) Glucose (70-99(Fasting)) mg/dl POC Glucose (70-99) mg/dl POC Glucose (other) 168 H (70-99) mg/dl Estimat Average Glucose mg/dl Hemoglobin A1c (4.5-5.6) % Calcium (8.5-10.1) mg/dl POC Ioniz Calcium Bridget 1.22 (1.12-1.32) mmol/l Magnesium (1.7-2.4) mg/dl Total Bilirubin (0.2-1.0) mg/dl AST (13-39) U/L ALT (7-52) U/L Alkaline Phosphatase (34-104) U/L Troponin I High Sens (0-20) pg/ml Total Protein (6.0-8.3) gm/dl Albumin (3.4-5.0) gm/dl Globulin (2.5-4.0) gm/dl Albumin/Globulin Ratio (0.9-2) Lipase (11-82) U/L Nasal Screen MRSA (PCR) (Negative) POC Stool Occult Blood Positive A (Negative) Ethyl Alcohol mg/dL (<10.0) mg/dl SARS-CoV-2, RNA, NAAT NEGATIVE (NEGATIVE) Blood Type Antibody Screen 10/30/21 10/30/21 10/30/21 Range/Units 21:42 21:42 21:35 WBC (4.8-10.8) K/uL RBC (4.7-6.1) M/uL Hgb (14.0-18.0) g/dL POC Hgb (14.0-18.0) g/dl Hct (42-52) % POC Hct (42-52) % MCV (80-100) fL MCH (25-34) pg MCHC (32-36) g/dL RDW Std Deviation (36.4-46.3) fL RDW Coeff of Mariama (11.5-14.5) % Plt Count (130-400) K/uL MPV (7.4-10.4) fL Immature Gran % (Auto) % Neut % (Auto) % Lymph % (Auto) % [place] % (Auto) % Eos % (Auto) % Baso % (Auto) % Neut # (Auto) (1.4-6.5) K/uL Lymph # (Auto) (1.2-3.4) K/uL [place] # (Auto) (0.11-0.59) K/uL Eos # (Auto) (0-0.5) K/uL Baso # (Auto) (0-0.2) K/uL Immature Gran # (Auto) (0.00-0.02) K/uL PT 10.5 (9.0-12.0) Seconds INR 1.0 (0.9-1.1) APTT 25.9 (21.0-31.0) Seconds PTT Ratio 0.9 POC Sodium (135-144) mmol/L Sodium (136-145) mmol/L POC Potassium (3.3-5.0) mmol/L Potassium (3.5-5.1) mmol/L POC Chloride (101-112) mmol/L Chloride (98-107) mmol/L Carbon Dioxide (21-32) mmol/L POC Total CO2 (24-31) mmol/L Anion Gap (3-11) POC Anion Gap (16-25) mmol/L POC BUN (7-18) mg/dl BUN (6-23) mg/dl Creatinine (0.6-1.4) mg/dl POC Creatinine (0.6-1.3) mg/dl Est Cr Clr Drug Dosing ml/min Est GFR ( Amer) ml/min Est GFR (Non-Af Amer) ml/min BUN/Creatinine Ratio (10-20) Glucose (70-99(Fasting)) mg/dl POC Glucose (70-99) mg/dl POC Glucose (other) (70-99) mg/dl Estimat Average Glucose mg/dl Hemoglobin A1c (4.5-5.6) % Calcium (8.5-10.1) mg/dl POC Ioniz Calcium Bridget (1.12-1.32) mmol/l Magnesium (1.7-2.4) mg/dl Total Bilirubin (0.2-1.0) mg/dl AST (13-39) U/L ALT (7-52) U/L Alkaline Phosphatase (34-104) U/L Troponin I High Sens (0-20) pg/ml Total Protein (6.0-8.3) gm/dl Albumin (3.4-5.0) gm/dl Globulin (2.5-4.0) gm/dl Albumin/Globulin Ratio (0.9-2) Lipase (11-82) U/L Nasal Screen MRSA (PCR) (Negative) POC Stool Occult Blood (Negative) Ethyl Alcohol mg/dL < 10.0 (<10.0) mg/dl SARS-CoV-2, RNA, NAAT (NEGATIVE) Blood Type AB Positive Antibody Screen NEGATIVE 10/30/21 10/30/21 Range/Units 21:35 21:35 WBC 7.49 (4.8-10.8) K/uL RBC 5.11 (4.7-6.1) M/uL Hgb 15.8 (14.0-18.0) g/dL POC Hgb (14.0-18.0) g/dl Hct 43.7 (42-52) % POC Hct (42-52) % MCV 85.5 (80-100) fL MCH 30.9 (25-34) pg MCHC 36.2 H (32-36) g/dL RDW Std Deviation 40.0 (36.4-46.3) fL RDW Coeff of Mariama 12.8 (11.5-14.5) % Plt Count 155 (130-400) K/uL MPV 9.8 (7.4-10.4) fL Immature Gran % (Auto) 0.3 % Neut % (Auto) 64.9 % Lymph % (Auto) 27.4 % [place] % (Auto) 6.0 % Eos % (Auto) 1.3 % Baso % (Auto) 0.1 % Neut # (Auto) 4.86 (1.4-6.5) K/uL Lymph # (Auto) 2.05 (1.2-3.4) K/uL [place] # (Auto) 0.45 (0.11-0.59) K/uL Eos # (Auto) 0.10 (0-0.5) K/uL Baso # (Auto) 0.01 (0-0.2) K/uL Immature Gran # (Auto) 0.02 (0.00-0.02) K/uL PT (9.0-12.0) Seconds INR (0.9-1.1) APTT (21.0-31.0) Seconds PTT Ratio POC Sodium (135-144) mmol/L Sodium 137 (136-145) mmol/L POC Potassium (3.3-5.0) mmol/L Potassium 3.8 (3.5-5.1) mmol/L POC Chloride (101-112) mmol/L Chloride 105 (98-107) mmol/L Carbon Dioxide 25 (21-32) mmol/L POC Total CO2 (24-31) mmol/L Anion Gap 7 (3-11) POC Anion Gap (16-25) mmol/L POC BUN (7-18) mg/dl BUN 7 (6-23) mg/dl Creatinine 0.68 (0.6-1.4) mg/dl POC Creatinine (0.6-1.3) mg/dl Est Cr Clr Drug Dosing 161.6 ml/min Est GFR ( Amer) 127.3 ml/min Est GFR (Non-Af Amer) 109.8 ml/min BUN/Creatinine Ratio 10.3 (10-20) Glucose 165 H (70-99(Fasting)) mg/dl POC Glucose (70-99) mg/dl POC Glucose (other) (70-99) mg/dl Estimat Average Glucose mg/dl Hemoglobin A1c (4.5-5.6) % Calcium 8.8 (8.5-10.1) mg/dl POC Ioniz Calcium Bridget (1.12-1.32) mmol/l Magnesium (1.7-2.4) mg/dl Total Bilirubin 0.6 (0.2-1.0) mg/dl AST 31 (13-39) U/L ALT 40 (7-52) U/L Alkaline Phosphatase 78 (34-104) U/L Troponin I High Sens 6.5 (0-20) pg/ml Total Protein 6.6 (6.0-8.3) gm/dl Albumin 4.2 (3.4-5.0) gm/dl Globulin 2.4 L (2.5-4.0) gm/dl Albumin/Globulin Ratio 1.8 (0.9-2) Lipase 85 H (11-82) U/L Nasal Screen MRSA (PCR) (Negative) POC Stool Occult Blood (Negative) Ethyl Alcohol mg/dL (<10.0) mg/dl SARS-CoV-2, RNA, NAAT (NEGATIVE) Blood Type Antibody Screen Medications Administered Current Inpatient Medications Albuterol (Albuterol Hfa 8 Gm Inhaler) 2 puffs INH QIDR PRN PRN Reason: Shortness Of Breath Or Wheezing Stop: 11/30/21 06:59 Atorvastatin Calcium (Atorvastatin 10 Mg Tab) 10 mg PO DAILY JUSTIN Stop: 11/30/21 08:59 Last Admin: 10/31/21 08:43 Dose: 10 mg Documented by: Benztropine Mesylate (Benztropine Mesylate 1 Mg Tab) 2 mg PO HS JUSTIN Stop: 11/30/21 20:59 Duloxetine HCl (Duloxetine Hcl 20 Mg Cap) 40 mg PO DAILY JUSTIN Stop: 11/30/21 08:59 Last Admin: 10/31/21 08:43 Dose: 40 mg Documented by: Haloperidol (Haloperidol 5 Mg Tab) 20 mg PO HS JUSTIN Stop: 11/30/21 20:59 Hydroxyzine HCl (Hydroxyzine Hcl 25 Mg Tab) 125 mg PO HS JUSTIN Stop: 11/30/21 20:59 Sodium Chloride (Nss 1000ml) 1,000 mls @ 125 mls/hr IV .Q8H [facility] Stop: 11/30/21 02:19 Last Admin: 10/31/21 12:10 Dose: 125 mls/hr Documented by: Promethazine HCl 12.5 mg/ (Sodium Chloride) 50.5 mls @ 202 mls/hr IV Q6H PRN PRN Reason: Nausea And Vomiting Stop: 11/30/21 02:19 Pantoprazole Sodium 40 mg/ (Dextrose) 100 mls @ 20 mls/hr IV Q5H [facility] Stop: 11/30/21 03:29 Last Admin: 10/31/21 13:10 Dose: 8 mg/hr, 20 mls/hr Documented by: Insulin Aspart (Insulin Aspart Per Unit) 0 units SC ACHS [facility] Stop: 11/30/21 07:29 Last Admin: 10/31/21 16:58 Dose: Not Given Documented by: Insulin Glargine (Insulin Glargine Solostar 100 Units/Ml 3 Ml Pen) 5 units SC HS [facility] Stop: 11/30/21 20:59 Lactobacillus Acidophilus (Advanced Probiotic 1250 Mg Capsule) 2 cap PO DAILY PRN PRN Reason: Constipation Stop: 11/30/21 03:08 Last Admin: 10/31/21 08:43 Dose: 2 cap Documented by: Lamotrigine (Lamotrigine 100 Mg Tab) 100 mg PO BID [facility] Stop: 11/30/21 08:59 Last Admin: 10/31/21 08:43 Dose: 100 mg Documented by: Lisinopril (Lisinopril 2.5 Mg Tab) 2.5 mg PO DAILY [facility] Stop: 11/30/21 08:59 Last Admin: 10/31/21 08:43 Dose: 2.5 mg Documented by: Miscellaneous (Suvorexant [Belsomra]: Order Awaiting Action) 1 ea N/A QS [facility] Stop: 11/30/21 07:59 Last Admin: 10/31/21 16:57 Dose: Not Given Documented by: Nitroglycerin (Nitroglycerin Sl 0.4 Mg/Tab Tab) 0.4 mg SL UD PRN PRN Reason: Chest Pain Stop: 11/30/21 02:19 Prazosin HCl (Prazosin Hcl 1 Mg Cap) 2 mg PO QAM [facility] Stop: 11/30/21 08:59 Last Admin: 10/31/21 08:43 Dose: 2 mg Documented by: Prazosin HCl (Prazosin Hcl 1 Mg Cap) 6 mg PO HS JUSTIN Stop: 11/30/21 20:59 Sumatriptan Succinate (Sumatriptan Succinate 100 Mg Tab) 100 mg PO DAILY PRN PRN Reason: Migraine Headache Stop: 11/30/21 02:19 Tizanidine HCl (Tizanidine Hcl 4 Mg Tablet) 4 mg PO HS JUSTIN Stop: 11/30/21 20:59
[2021-10-31] MEDS: hydrOXYzine HCl 25 MG TAB PO SCH (20:47)
[2021-10-31] MEDS: haloperidoL 5 MG TAB PO SCH (20:48)
[2021-10-31] MEDS: tiZANidine HCL 4 MG TABLET PO SCH (20:53)
[2021-10-31] MEDS: INSULIN GLARGINE SOLOSTAR 100 UNITS/ML 3 ML PEN SC SCH (20:53)
[2021-10-31] MEDS ORDERED: hydrOXYzine HCl 25 MG TAB PO SCH (21:00)
[2021-10-31] MEDS: BENZTROPINE MESYLATE 1 MG TAB PO SCH (21:36)
[2021-11-01] MEDS: SODIUM CHLORIDE 0.9% 1000ML 1,000 ML IV SCH ×2 (02:10→11:33)
[2021-11-01] MEDS: PANTOprazole 40 MG in DEXTROSE 5% 100 ML IV SCH ×2 (04:30→10:41)
--- NOTE | 2021-11-01 07:29 | Hospitalist Progress Note ---
Date of Service November 01, 2021 Assessment & Plan (1) Acute GI bleeding: Plan: This is a 51-year-old male who presents with coffee-ground emesis. 1. Coffee-ground emesis: Concern for possible gastrointestinal bleed. His hemoglobin is stable, but Hemoccult is positive. History of alcoholism, but he says he stopped drinking a few years back. CT abd. pelvis IMPRESSION: 1. No bowel wall thickening or obstruction. 2. Normal appendix. 3. Mild bladder wall thickening, unchanged. This is likely chronic. 4. Hepatic steatosis. 5. Mild mesenteric panniculitis, unchanged. This is of doubtful clinical significance. 6. Cholecystectomy. ER started on Protonix and also gave a dose of octreotide. Continue on IV Protonix drip. H and H q. 6 hours. Blood consent obtained by the ER. Closely monitor in tele floor. GI consulted DDX gastritis, pud, gastroparesis Pt underwent EGD today (11/01) Normal esophagus. Normal stomach. Biopsies taken with a cold forceps for histology. Normal examined duodenum. Biopsies taken with cold forceps for histology. Recommendation: Gastric emptying study 3. History of diabetes: Hold his home medications. Cut back on Lantus to 5 units at bedtime as the patient is n.p.o. Hold metformin. Placed him on insulin sliding scale. Follow the blood sugars, follow HbA1c level. 4. History of schizoaffective disorder, history of bipolar disorder, history of generalized anxiety disorder, history of depression: Continue his home medications. 5. History of orofacial dyskinesia: Recently saw neurologist for akathasia. Mostly secondary to neuroleptics, advised to cut back. If could not able to cut back neuroleptics, recommended low-dose klonopin. Follow as outpatient. 6. History of hypertension: On lisinopril and Prazosin. Monitor his blood pressure. 7. History of hyperlipidemia: On statin. DVT prophylaxis: SCDs. DISPOSITION: Closely monitor in tele floor. CODE: FULL Admission and Anticipated Discharge Date Admission Date: October 31, 2021 Subjective Patient seen in follow-up of coffee-ground emesis, abdominal pain Underwent EGD today, which was unremarkable Currently patient is laying in bed, in no acute distress, however he continues to complain of diffuse abdominal discomfort Reports constipation No emesis while in the hospital Denies fevers chills, chest pain or shortness of breath Review of Systems Review of Systems: All systems reviewed & are unremarkable except as noted in Subjective Physical Exam Physical Exam: GENERAL: The patient is of moderate build, not in acute distress. HEENT: NC/AT. EOMI. Pupils equal, round and reactive to light. Oral mucosa moist. NECK: No JVD, no neck masses. CARDIOVASCULAR: S1 and S2 heard. Regular rate and rhythm. No murmur, no gallop. RESPIRATORY SYSTEM: Normal AP diameter. No accessory muscle use. No wheezing, no crackles. ABDOMEN: Soft, bowel sounds present. Mild abdominal discomfort. No guarding, no rigidity. NEURO/PSYCH:Awake and alert, answering questions appropriately, moves extremities. No dysarthria. EXTREMITIES: No edema, no erythema. Results & Data Results & Data ([facility]) Vital Signs (Past 12 Hours) Vital Signs Temp Pulse Pulse Resp BP Pulse Ox Pulse Ox 11/01/21 02:20 36.7 C 69 20 122/74 93 98 11/01/21 00:35 64 10/31/21 23:29 36.4 C L 66 18 105/69 92 10/31/21 19:46 36.3 C L 66 16 123/88 95 Laboratory Results 11/01/21 11/01/21 11/01/21 Range/Units 11:23 07:49 07:49 WBC 4.99 (4.8-10.8) K/uL RBC 4.63 L (4.7-6.1) M/uL Hgb 14.5 (14.0-18.0) g/dL Hct 40.2 L (42-52) % MCV 86.8 (80-100) fL MCH 31.3 (25-34) pg MCHC 36.1 H (32-36) g/dL RDW Std Deviation 41.6 (36.4-46.3) fL RDW Coeff of Mariama 13.1 (11.5-14.5) % Plt Count 113 L (130-400) K/uL MPV 9.6 (7.4-10.4) fL Sodium 138 (136-145) mmol/L Potassium 3.8 (3.5-5.1) mmol/L Chloride 108 H (98-107) mmol/L Carbon Dioxide 25 (21-32) mmol/L Anion Gap 5 (3-11) BUN 9 (6-23) mg/dl Creatinine 0.75 (0.6-1.4) mg/dl Est Cr Clr Drug Dosing 144.9 ml/min Est GFR ( Amer) 122.2 ml/min Est GFR (Non-Af Amer) 105.5 ml/min BUN/Creatinine Ratio 12.0 (10-20) Glucose 112 H (70-99(Fasting)) mg/dl POC Glucose 131 H (70-99) mg/dl Calcium 7.9 L (8.5-10.1) mg/dl Phosphorus 3.4 (2.5-4.9) mg/dl Magnesium 1.8 (1.7-2.4) mg/dl 11/01/21 10/31/21 10/31/21 Range/Units 07:22 20:30 17:18 WBC (4.8-10.8) K/uL RBC (4.7-6.1) M/uL Hgb 14.0 (14.0-18.0) g/dL Hct 39.3 L (42-52) % MCV (80-100) fL MCH (25-34) pg MCHC (32-36) g/dL RDW Std Deviation (36.4-46.3) fL RDW Coeff of Mariama (11.5-14.5) % Plt Count (130-400) K/uL MPV (7.4-10.4) fL Sodium (136-145) mmol/L Potassium (3.5-5.1) mmol/L Chloride (98-107) mmol/L Carbon Dioxide (21-32) mmol/L Anion Gap (3-11) BUN (6-23) mg/dl Creatinine (0.6-1.4) mg/dl Est Cr Clr Drug Dosing ml/min Est GFR ( Amer) ml/min Est GFR (Non-Af Amer) ml/min BUN/Creatinine Ratio (10-20) Glucose (70-99(Fasting)) mg/dl POC Glucose 113 H 117 H (70-99) mg/dl Calcium (8.5-10.1) mg/dl Phosphorus (2.5-4.9) mg/dl Magnesium (1.7-2.4) mg/dl Medications Administered Current Inpatient Medications Albuterol (Albuterol Hfa 8 Gm Inhaler) 2 puffs INH QIDR PRN PRN Reason: Shortness Of Breath Or Wheezing Stop: 11/30/21 06:59 Atorvastatin Calcium (Atorvastatin 10 Mg Tab) 10 mg PO DAILY [facility] Stop: 11/30/21 08:59 Last Admin: 11/01/21 08:02 Dose: 10 mg Documented by: Benztropine Mesylate (Benztropine Mesylate 1 Mg Tab) 2 mg PO HS [facility] Stop: 11/30/21 20:59 Last Admin: 10/31/21 21:36 Dose: 2 mg Documented by: Duloxetine HCl (Duloxetine Hcl 20 Mg Cap) 40 mg PO DAILY [facility] Stop: 11/30/21 08:59 Last Admin: 11/01/21 08:02 Dose: 40 mg Documented by: Haloperidol (Haloperidol 5 Mg Tab) 20 mg PO [facility] Stop: 11/30/21 20:59 Last Admin: 10/31/21 20:48 Dose: 20 mg Documented by: Hydroxyzine HCl (Hydroxyzine Hcl 25 Mg Tab) 125 mg PO [facility] Stop: 11/30/21 20:59 Last Admin: 10/31/21 20:47 Dose: 125 mg Documented by: Promethazine HCl 12.5 mg/ (Sodium Chloride) 50.5 mls @ 202 mls/hr IV Q6H PRN PRN Reason: Nausea And Vomiting Stop: 11/30/21 02:19 Insulin Aspart (Insulin Aspart Per Unit) 0 units SC [facility] Stop: 11/30/21 07:29 Last Admin: 11/01/21 12:00 Dose: 4 units Documented by: Insulin Glargine (Insulin Glargine Solostar 100 Units/Ml 3 Ml Pen) 5 units SC [facility] Stop: 11/30/21 20:59 Last Admin: 10/31/21 20:53 Dose: 5 units Documented by: Lactobacillus Acidophilus (Advanced Probiotic 1250 Mg Capsule) 2 cap PO DAILY PRN PRN Reason: Constipation Stop: 11/30/21 03:08 Last Admin: 10/31/21 08:43 Dose: 2 cap Documented by: Lamotrigine (Lamotrigine 100 Mg Tab) 100 mg PO BID [facility] Stop: 11/30/21 08:59 Last Admin: 11/01/21 08:02 Dose: 100 mg Documented by: Lisinopril (Lisinopril 2.5 Mg Tab) 2.5 mg PO DAILY [facility] Stop: 11/30/21 08:59 Last Admin: 11/01/21 08:02 Dose: 2.5 mg Documented by: Miscellaneous (Suvorexant [Belsomra]: Order Awaiting Action) 1 ea N/A QS [facility] Stop: 11/30/21 07:59 Last Admin: 11/01/21 12:31 Dose: Not Given Documented by: Nitroglycerin (Nitroglycerin Sl 0.4 Mg/Tab Tab) 0.4 mg SL UD PRN PRN Reason: Chest Pain Stop: 11/30/21 02:19 Pantoprazole Sodium (Pantoprazole 40 Mg Tab) 40 mg PO QAM [facility] Stop: 12/02/21 08:59 Prazosin HCl (Prazosin Hcl 1 Mg Cap) 2 mg PO QAM [facility] Stop: 11/30/21 08:59 Last Admin: 11/01/21 08:02 Dose: 2 mg Documented by: Prazosin HCl (Prazosin Hcl 1 Mg Cap) 6 mg PO HS [facility] Stop: 11/30/21 20:59 Last Admin: 10/31/21 20:52 Dose: 6 mg Documented by: Sumatriptan Succinate (Sumatriptan Succinate 100 Mg Tab) 100 mg PO DAILY PRN PRN Reason: Migraine Headache Stop: 11/30/21 02:19 Tizanidine HCl (Tizanidine Hcl 4 Mg Tablet) 4 mg PO [facility] Stop: 11/30/21 20:59 Last Admin: 10/31/21 20:53 Dose: 4 mg Documented by:
[2021-11-01] MEDS: ATORVASTATIN 10 MG TAB PO SCH (08:02)
[2021-11-01] MEDS: PRAZOSIN HCL 1 MG CAP PO SCH ×2 (08:02→20:19)
[2021-11-01] MEDS: lamoTRIgine 100 MG TAB PO SCH ×2 (08:02→20:19)
[2021-11-01] MEDS: lisinopril 2.5 MG TAB PO SCH (08:02)
[2021-11-01] MEDS: DULoxetine HCL 20 MG CAP PO SCH (08:02)
[2021-11-01 08:10] LABS: Hematocrit (blood only) 40.2 % (42-52); Hemoglobin 14.5 g/dL (14.0-18.0); Mean Corpuscular Hemoglobin 31.3 pg (25-34); Mean Corpuscular Hgb Conc 36.1 g/dL (32-36); Mean Corpuscular Volume 86.8 fL (80-100); Mean Platelet Volume 9.6 fL (7.4-10.4); Platelet Count 113 K/uL (130-400); RDW Coefficient of Variation 13.1 % (11.5-14.5); RDW Standard Deviation 41.6 fL (36.4-46.3); Red Blood Count 4.63 M/uL (4.7-6.1); White Blood Count 4.99 K/uL (4.8-10.8)
[2021-11-01] MEDS: INSULIN ASPART PER UNIT SC SCH ×4 (08:11→20:20)
[2021-11-01 08:32] LABS: Calcium 7.9 mg/dl (8.5-10.1); Creatinine Clr Calc Pharmacy 144.9 ml/min; Est GFR (African American) 122.2 ml/min; Est GFR (Non-African American) 105.5 ml/min; Magnesium 1.8 mg/dl (1.7-2.4); Phosphorus 3.4 mg/dl (2.5-4.9); Potassium 3.8 mmol/L (3.5-5.1)
--- NOTE | 2021-11-01 08:35 | Gastroenterology Progress Note ---
Date of Service November 01, 2021 Assessment & Plan (1) Acute GI bleeding: Plan: 51 year old male admitted with abd pain, nausea/vomiting and intermittent coffee ground emesis for about 3/4 weeks. HGB stable, BUN normal. DDX gastritis, pud, gastroparesis He has remained NPO without further abd pain, nausea/vomiting. Will proceed with EGD today IV PPI BID Antiemetics as needed Due for OP colonoscopy Admission and Anticipated Discharge Date Admission Date: October 31, 2021 Supervising Physician Co-Signing Physician Notes Pt without vomiting while NPO. Plan EGD today. Subjective Pt was seen and evaluated, chart reviewed Is NPO for EGD Notes no emesis or discomfort as he has been NPO Denies black or bloody stools HGB stable Review of Systems Review of Systems: All systems reviewed & are unremarkable except as noted in HPI & below Physical Exam Constitutional: WD/WN, vitals as above Neck: trachea midline, no thyromegaly Respiratory: normal respiratory effort, lungs clear to auscultation Cardiovascular: Rate/Rhythm: regular rate and regular rhythm Gastrointestinal (Abdomen): normal bowel sounds, soft, nontender, no hepatosplenomegaly Skin: no rashes, warm and dry Results & Data ([facility]) Vital Signs (Past 12 Hours) Vital Signs Temp Pulse Pulse Resp BP Pulse Ox Pulse Ox 11/01/21 08:00 36.7 C 60 18 131/68 96 11/01/21 02:20 36.7 C 69 20 122/74 93 98 11/01/21 00:35 64 10/31/21 23:29 36.4 C L 66 18 105/69 92 Laboratory Results 11/01/21 11/01/21 11/01/21 Range/Units 07:49 07:49 07:22 WBC 4.99 (4.8-10.8) K/uL RBC 4.63 L (4.7-6.1) M/uL Hgb 14.5 (14.0-18.0) g/dL Hct 40.2 L (42-52) % MCV 86.8 (80-100) fL MCH 31.3 (25-34) pg MCHC 36.1 H (32-36) g/dL RDW Std Deviation 41.6 (36.4-46.3) fL RDW Coeff of Mariama 13.1 (11.5-14.5) % Plt Count 113 L (130-400) K/uL MPV 9.6 (7.4-10.4) fL Sodium 138 (136-145) mmol/L Potassium 3.8 (3.5-5.1) mmol/L Chloride 108 H (98-107) mmol/L Carbon Dioxide 25 (21-32) mmol/L Anion Gap 5 (3-11) BUN 9 (6-23) mg/dl Creatinine 0.75 (0.6-1.4) mg/dl Est Cr Clr Drug Dosing 144.9 ml/min Est GFR ( Amer) 122.2 ml/min Est GFR (Non-Af Amer) 105.5 ml/min BUN/Creatinine Ratio 12.0 (10-20) Glucose 112 H (70-99(Fasting)) mg/dl POC Glucose 113 H (70-99) mg/dl Calcium 7.9 L (8.5-10.1) mg/dl Phosphorus 3.4 (2.5-4.9) mg/dl Magnesium 1.8 (1.7-2.4) mg/dl 10/31/21 10/31/21 10/31/21 Range/Units 20:30 17:18 16:04 WBC (4.8-10.8) K/uL RBC (4.7-6.1) M/uL Hgb 14.0 (14.0-18.0) g/dL Hct 39.3 L (42-52) % MCV (80-100) fL MCH (25-34) pg MCHC (32-36) g/dL RDW Std Deviation (36.4-46.3) fL RDW Coeff of Mariama (11.5-14.5) % Plt Count (130-400) K/uL MPV (7.4-10.4) fL Sodium (136-145) mmol/L Potassium (3.5-5.1) mmol/L Chloride (98-107) mmol/L Carbon Dioxide (21-32) mmol/L Anion Gap (3-11) BUN (6-23) mg/dl Creatinine (0.6-1.4) mg/dl Est Cr Clr Drug Dosing ml/min Est GFR ( Amer) ml/min Est GFR (Non-Af Amer) ml/min BUN/Creatinine Ratio (10-20) Glucose (70-99(Fasting)) mg/dl POC Glucose 117 H 128 H (70-99) mg/dl Calcium (8.5-10.1) mg/dl Phosphorus (2.5-4.9) mg/dl Magnesium (1.7-2.4) mg/dl 10/31/21 10/31/21 Range/Units 11:07 11:02 WBC (4.8-10.8) K/uL RBC (4.7-6.1) M/uL Hgb 14.3 (14.0-18.0) g/dL Hct 39.4 L (42-52) % MCV (80-100) fL MCH (25-34) pg MCHC (32-36) g/dL RDW Std Deviation (36.4-46.3) fL RDW Coeff of Mariama (11.5-14.5) % Plt Count (130-400) K/uL MPV (7.4-10.4) fL Sodium (136-145) mmol/L Potassium (3.5-5.1) mmol/L Chloride (98-107) mmol/L Carbon Dioxide (21-32) mmol/L Anion Gap (3-11) BUN (6-23) mg/dl Creatinine (0.6-1.4) mg/dl Est Cr Clr Drug Dosing ml/min Est GFR ( Amer) ml/min Est GFR (Non-Af Amer) ml/min BUN/Creatinine Ratio (10-20) Glucose (70-99(Fasting)) mg/dl POC Glucose 224 H (70-99) mg/dl Calcium (8.5-10.1) mg/dl Phosphorus (2.5-4.9) mg/dl Magnesium (1.7-2.4) mg/dl
--- NOTE | 2021-11-01 08:40 | History & Physical Bridge Note ---
Date of Service November 01, 2021 History & Physical Bridge Note I have examined the patient, reviewed the History & Physical and in the interval since the performance of the History & Physical I have noted the following changes of clinical significance: no changes noted
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
[2021-11-01] MEDS ORDERED: PROPOFOL IV EMULSION 10 MG/ML 20 ML VIAL IV ONE (09:23)
[2021-11-01] MEDS ORDERED: LIDOCAINE 2% 2 ML VIAL/AMP(20MG/ML) INFIL ONE (09:23)
--- NOTE | 2021-11-01 09:35 | GI REPORT ---
Patient Name: Wilner Arce Procedure Date: 11/01/2021 8:57 AM Date of : 1970 Admit Type: Inpatient Age: 51 Gender: Male Attending MD: Argentina Taylor MD Procedure: Upper GI endoscopy Providers: Argentina Taylor MD Referring MD: Gurinder Schwartz Md Indications: Nausea with vomiting Medicines: See the Anesthesia note for documentation of the administered medications Complications: No immediate complications. Estimated Blood Loss: Estimated blood loss: none. Procedure: Pre-Anesthesia Assessment: - ASA Grade Assessment: III - A patient with severe systemic disease. After obtaining informed consent, the endoscope was passed under direct vision. Throughout the procedure, the patient's blood pressure, pulse, and oxygen saturations were monitored continuously. The Endoscope was introduced through the mouth, and advanced to the second part of duodenum. The upper GI endoscopy was accomplished without difficulty. The patient tolerated the procedure well. Findings: The examined esophagus was normal. Hill class 1. The entire examined stomach was normal. Biopsies were taken with a cold forceps for histology. The examined duodenum was normal. Biopsies were taken with a cold forceps for histology. Impression: - Normal esophagus. - Normal stomach. Biopsied. - Normal examined duodenum. Biopsied. Recommendation: - Discharge patient to floor. - Gastric emptying study. Argentina Taylor M.D. Argentina Taylor MD 11/01/2021 9:34:55 AM This report has been signed electronically. Note Initiated On: 11/01/2021 8:57 AM Number of Addenda: 0 I attest to the content of the Intraoperative Record and orders documented therein, exceptions below {[id number]}
--- NOTE | 2021-11-01 09:43 | Anesthesiology Progress Note ---
Date of Service November 01, 2021 Anesthesia Post Procedure Vital Signs Vital Signs: Temp Pulse Pulse Resp BP Pulse Ox Pulse Ox 11/01/21 09:34 81 16 114/74 93 11/01/21 08:39 36.5 C 67 20 119/80 94 11/01/21 08:00 36.7 C 60 18 131/68 96 11/01/21 07:00 68 11/01/21 02:20 36.7 C 69 20 122/74 93 98 11/01/21 00:35 64 10/31/21 23:29 36.4 C L 66 18 105/69 92 10/31/21 19:46 36.3 C L 66 16 123/88 95 10/31/21 15:19 36.5 C 64 15 110/76 97 10/31/21 14:59 62 10/31/21 11:10 70 16 94 Transfer of Care Handoff Completed per policy Notes Mental Status: alert / awake / arousable Patient Amnestic to Procedure: Yes Nausea / Vomiting: adequately controlled Pain: adequately controlled Airway Patency, RR, SpO2: stable & adequate BP & HR: stable & adequate Hydration State: stable & adequate Anesthetic Complications: no major complications apparent
[2021-11-01] MEDS ORDERED: bisacodyL 10 MG SUPP PR STA (17:02)
[2021-11-01] MEDS: haloperidoL 5 MG TAB PO SCH (20:16)
[2021-11-01] MEDS: BENZTROPINE MESYLATE 1 MG TAB PO SCH (20:16)
[2021-11-01] MEDS: hydrOXYzine HCl 25 MG TAB PO SCH (20:17)
[2021-11-01] MEDS: INSULIN GLARGINE SOLOSTAR 100 UNITS/ML 3 ML PEN SC SCH (20:18)
[2021-11-01] MEDS: tiZANidine HCL 4 MG TABLET PO SCH (20:19)
[2021-11-02 07:58] LABS: Hematocrit (blood only) 40.2 % (42-52); Hemoglobin 14.6 g/dL (14.0-18.0); Mean Corpuscular Hemoglobin 31.4 pg (25-34); Mean Corpuscular Hgb Conc 36.3 g/dL (32-36); Mean Corpuscular Volume 86.5 fL (80-100); Mean Platelet Volume 9.9 fL (7.4-10.4); Platelet Count 122 K/uL (130-400); RDW Coefficient of Variation 13.3 % (11.5-14.5); Red Blood Count 4.65 M/uL (4.7-6.1); White Blood Count 4.79 K/uL (4.8-10.8)
[2021-11-02] MEDS: INSULIN ASPART PER UNIT SC SCH ×4 (08:09→20:09)
[2021-11-02 08:24] LABS: BUN Creatinine Ratio 11.7 (10-20); Calcium 8.4 mg/dl (8.5-10.1); Creatinine Clr Calc Pharmacy 142.5 ml/min; Est GFR (African American) 120.9 ml/min; Est GFR (Non-African American) 104.3 ml/min; Phosphorus 4.2 mg/dl (2.5-4.9); Potassium 3.7 mmol/L (3.5-5.1)
[2021-11-02 08:35] LABS: Platelet Estimate Decreased (Normal)
--- NOTE | 2021-11-02 08:35 | Hospitalist Progress Note ---
Date of Service November 02, 2021 Assessment & Plan (1) Acute GI bleeding: Plan: This is a 51-year-old male who presents with coffee-ground emesis. 1. Coffee-ground emesis: Concern for possible gastrointestinal bleed. His hemoglobin is stable, but Hemoccult is positive. History of alcoholism, but he says he stopped drinking a few years back. CT abd. pelvis IMPRESSION: 1. No bowel wall thickening or obstruction. 2. Normal appendix. 3. Mild bladder wall thickening, unchanged. This is likely chronic. 4. Hepatic steatosis. 5. Mild mesenteric panniculitis, unchanged. This is of doubtful clinical significance. 6. Cholecystectomy. ER started on Protonix and also gave a dose of octreotide. Continue on IV Protonix drip. H and H q. 6 hours. Blood consent obtained by the ER. Closely monitor in tele floor. GI consulted DDX gastritis, pud, gastroparesis Pt underwent EGD (11/01) Normal esophagus. Normal stomach. Biopsies taken with a cold forceps for histology. Normal examined duodenum. Biopsies taken with cold forceps for histology. Recommendation: Gastric emptying study Plan for gastric emptying study today (11/02) Constipation Pt reports no BM for several days ordered colace and suppository 3. History of diabetes: Hold his home medications. Cut back on Lantus to 5 units at bedtime as the patient is n.p.o. Hold metformin. Placed him on insulin sliding scale. Follow the blood sugars, follow HbA1c level. 4. History of schizoaffective disorder, history of bipolar disorder, history of generalized anxiety disorder, history of depression: Continue his home medications. 5. History of orofacial dyskinesia: Recently saw neurologist for akathasia. Mostly secondary to neuroleptics, advised to cut back. If could not able to cut back neuroleptics, recommended low-dose klonopin. Follow as outpatient. 6. History of hypertension: On lisinopril and Prazosin. Monitor his blood pressure. 7. History of hyperlipidemia: On statin. DVT prophylaxis: SCDs. DISPOSITION: Closely monitor in tele floor. CODE: FULL Admission and Anticipated Discharge Date Admission Date: October 31, 2021 Subjective Patient seen in follow-up of coffee-ground emesis, abdominal pain Underwent EGD yesterday, which was unremarkable Currently patient is laying in bed, in no acute distress, however he continues to complain of diffuse abdominal discomfort Reports constipation No emesis while in the hospital Plan for gastric emptying study today Denies fevers chills, chest pain or shortness of breath Review of Systems Review of Systems: All systems reviewed & are unremarkable except as noted in Subjective Physical Exam Physical Exam: GENERAL: The patient is of moderate build, not in acute distress. HEENT: NC/AT. EOMI. Pupils equal, round and reactive to light. Oral mucosa moist. NECK: No JVD, no neck masses. CARDIOVASCULAR: S1 and S2 heard. Regular rate and rhythm. No murmur, no gallop. RESPIRATORY SYSTEM: Normal AP diameter. No accessory muscle use. No wheezing, no crackles. ABDOMEN: Soft, bowel sounds present. Mild abdominal discomfort. No guarding, no rigidity. NEURO/PSYCH:Awake and alert, answering questions appropriately, moves extremities. No dysarthria. EXTREMITIES: No edema, no erythema. Results & Data Results & Data ([facility]) Vital Signs (Past 12 Hours) Vital Signs Temp Pulse Pulse Resp BP Pulse Ox 11/02/21 07:44 69 11/02/21 07:28 36.3 C L 64 18 118/78 92 11/02/21 03:48 36.5 C 59 L 18 120/82 96 11/01/21 23:22 36.6 C 72 18 92/60 L 92 11/01/21 22:20 85 Laboratory Results 11/02/21 11/02/21 11/02/21 Range/Units 07:24 07:09 07:09 WBC 4.79 L (4.8-10.8) K/uL RBC 4.65 L (4.7-6.1) M/uL Hgb 14.6 (14.0-18.0) g/dL Hct 40.2 L (42-52) % MCV 86.5 (80-100) fL MCH 31.4 (25-34) pg MCHC 36.3 H (32-36) g/dL RDW Std Deviation 42.0 (36.4-46.3) fL RDW Coeff of Mariama 13.3 (11.5-14.5) % Plt Count 122 L (130-400) K/uL MPV 9.9 (7.4-10.4) fL Sodium 140 (136-145) mmol/L Potassium 3.7 (3.5-5.1) mmol/L Chloride 109 H (98-107) mmol/L Carbon Dioxide 24 (21-32) mmol/L Anion Gap 7 (3-11) BUN 9 (6-23) mg/dl Creatinine 0.77 (0.6-1.4) mg/dl Est Cr Clr Drug Dosing 142.5 ml/min Est GFR ( Amer) 120.9 ml/min Est GFR (Non-Af Amer) 104.3 ml/min BUN/Creatinine Ratio 11.7 (10-20) Glucose 125 H (70-99(Fasting)) mg/dl POC Glucose 134 H (70-99) mg/dl Calcium 8.4 L (8.5-10.1) mg/dl Phosphorus 4.2 (2.5-4.9) mg/dl Magnesium 2.0 (1.7-2.4) mg/dl 11/01/21 11/01/21 11/01/21 Range/Units 20:15 16:23 11:23 WBC (4.8-10.8) K/uL RBC (4.7-6.1) M/uL Hgb (14.0-18.0) g/dL Hct (42-52) % MCV (80-100) fL MCH (25-34) pg MCHC (32-36) g/dL RDW Std Deviation (36.4-46.3) fL RDW Coeff of Mariama (11.5-14.5) % Plt Count (130-400) K/uL MPV (7.4-10.4) fL Sodium (136-145) mmol/L Potassium (3.5-5.1) mmol/L Chloride (98-107) mmol/L Carbon Dioxide (21-32) mmol/L Anion Gap (3-11) BUN (6-23) mg/dl Creatinine (0.6-1.4) mg/dl Est Cr Clr Drug Dosing ml/min Est GFR ( Amer) ml/min Est GFR (Non-Af Amer) ml/min BUN/Creatinine Ratio (10-20) Glucose (70-99(Fasting)) mg/dl POC Glucose 131 H 153 H 131 H (70-99) mg/dl Calcium (8.5-10.1) mg/dl Phosphorus (2.5-4.9) mg/dl Magnesium (1.7-2.4) mg/dl Medications Administered Current Inpatient Medications Albuterol (Albuterol Hfa 8 Gm Inhaler) 2 puffs INH QIDR PRN PRN Reason: Shortness Of Breath Or Wheezing Stop: 11/30/21 06:59 Atorvastatin Calcium (Atorvastatin 10 Mg Tab) 10 mg PO DAILY [facility] Stop: 11/30/21 08:59 Last Admin: 11/01/21 08:02 Dose: 10 mg Documented by: Benztropine Mesylate (Benztropine Mesylate 1 Mg Tab) 2 mg PO [facility] Stop: 11/30/21 20:59 Last Admin: 11/01/21 20:16 Dose: 2 mg Documented by: Duloxetine HCl (Duloxetine Hcl 20 Mg Cap) 40 mg PO DAILY [facility] Stop: 11/30/21 08:59 Last Admin: 11/01/21 08:02 Dose: 40 mg Documented by: Haloperidol (Haloperidol 5 Mg Tab) 20 mg PO [facility] Stop: 11/30/21 20:59 Last Admin: 11/01/21 20:16 Dose: 20 mg Documented by: Hydroxyzine HCl (Hydroxyzine Hcl 25 Mg Tab) 125 mg PO [facility] Stop: 11/30/21 20:59 Last Admin: 11/01/21 20:17 Dose: 125 mg Documented by: Promethazine HCl 12.5 mg/ (Sodium Chloride) 50.5 mls @ 202 mls/hr IV Q6H PRN PRN Reason: Nausea And Vomiting Stop: 11/30/21 02:19 Last Infusion: 11/01/21 23:09 Dose: Infused Documented by: Insulin Aspart (Insulin Aspart Per Unit) 0 units [facility] Stop: 11/30/21 07:29 Last Admin: 11/02/21 08:09 Dose: 4 units Documented by: Insulin Glargine (Insulin Glargine Solostar 100 Units/Ml 3 Ml Pen) 5 units SC [facility] Stop: 11/30/21 20:59 Last Admin: 11/01/21 20:18 Dose: 5 units Documented by: Lactobacillus Acidophilus (Advanced Probiotic 1250 Mg Capsule) 2 cap PO DAILY PRN PRN Reason: Constipation Stop: 11/30/21 03:08 Last Admin: 10/31/21 08:43 Dose: 2 cap Documented by: Lamotrigine (Lamotrigine 100 Mg Tab) 100 mg PO BID [facility] Stop: 11/30/21 08:59 Last Admin: 11/01/21 20:19 Dose: 100 mg Documented by: Lisinopril (Lisinopril 2.5 Mg Tab) 2.5 mg PO DAILY [facility] Stop: 11/30/21 08:59 Last Admin: 11/01/21 08:02 Dose: 2.5 mg Documented by: Miscellaneous (Suvorexant [Belsomra]: Order Awaiting Action) 1 ea N/A QS [facility] Stop: 11/30/21 07:59 Last Admin: 11/02/21 01:31 Dose: Not Given Documented by: Nitroglycerin (Nitroglycerin Sl 0.4 Mg/Tab Tab) 0.4 mg SL UD PRN PRN Reason: Chest Pain Stop: 11/30/21 02:19 Pantoprazole Sodium (Pantoprazole 40 Mg Tab) 40 mg PO QAM [facility] Stop: 12/02/21 08:59 Prazosin HCl (Prazosin Hcl 1 Mg Cap) 2 mg PO QAM [facility] Stop: 11/30/21 08:59 Last Admin: 11/01/21 08:02 Dose: 2 mg Documented by: Prazosin HCl (Prazosin Hcl 1 Mg Cap) 6 mg PO HS [facility] Stop: 11/30/21 20:59 Last Admin: 11/01/21 20:19 Dose: 6 mg Documented by: Sumatriptan Succinate (Sumatriptan Succinate 100 Mg Tab) 100 mg PO DAILY PRN PRN Reason: Migraine Headache Stop: 11/30/21 02:19 Tizanidine HCl (Tizanidine Hcl 4 Mg Tablet) 4 mg PO HS [facility] Stop: 11/30/21 20:59 Last Admin: 11/01/21 20:19 Dose: 4 mg Documented by:
--- NOTE | 2021-11-02 08:51 | Communication Note ---
Date of Service: November 02, 2021 Attempted to evaluate pt x 2 Out of room getting gastric emptying scan. Chart reviewed. Appears he tolerated advancing diet without discomfort last evening. Await results of [facility] to sign off. Recall as needed.
[2021-11-02] MEDS: ADVANCED PROBIOTIC 1250 MG CAPSULE PO PRN (12:17)
[2021-11-02] MEDS: ATORVASTATIN 10 MG TAB PO SCH (12:17)
[2021-11-02] MEDS: DULoxetine HCL 20 MG CAP PO SCH (12:17)
[2021-11-02] MEDS: lamoTRIgine 100 MG TAB PO SCH ×2 (12:17→19:57)
[2021-11-02] MEDS: lisinopril 2.5 MG TAB PO SCH (12:17)
[2021-11-02] MEDS: PRAZOSIN HCL 1 MG CAP PO SCH ×2 (12:18→19:58)
[2021-11-02] MEDS: PANTOprazole 40 MG TAB PO SCH (12:18)
--- NOTE | 2021-11-02 12:21 | Nuclear Medicine Report ---
NM gastric emptying study CLINICAL HISTORY: 51 years-old Male with nausea/vomiting. Acute nausea with vomiting TECHNIQUE: After the oral ingestion of the meal consisting of egg substitute labeled with 1.0 mCi te chnetium-99m sulfur colloid, toast, jam and water, sequential anterior and posterior images were obta ined through 4 hours. Rersidual gastric activity was measured at several time points. COMPARISON: CT abdomen and pelvis 10/30/2021 FINDINGS: There is normal emptying of the gastric contents into the intestine. The gastric retention of activity was calculated as follows: 1 HOUR: 51% (normal range = 30-90%). 2 HOURS: 35% (normal range = 0-60%). 4 HOURS: 0% (normal range = 0-10%). IMPRESSION: Normal gastric emptying study. ACT 112: Negative or not required by law. The above report was generated using voice recognition software. It may contain grammatical, syntax o r spelling errors. Electronically signed by: Johnie Maki M.D. 11/02/2021 12:20 PM
[2021-11-02] MEDS ORDERED: DOCUSATE SODIUM 100 MG CAP PO ONE ×2 (14:48→14:50)
[2021-11-02] MEDS ORDERED: ACETAMINOPHEN 325 MG TAB PO PRN (16:10)
[2021-11-02] MEDS ORDERED: bisacodyL 10 MG SUPP PR STA (16:10)
[2021-11-02] MEDS: DOCUSATE SODIUM 100 MG CAP PO SCH (19:56)
[2021-11-02] MEDS: haloperidoL 5 MG TAB PO SCH (19:56)
[2021-11-02] MEDS: BENZTROPINE MESYLATE 1 MG TAB PO SCH (19:56)
[2021-11-02] MEDS: hydrOXYzine HCl 25 MG TAB PO SCH (19:57)
[2021-11-02] MEDS: tiZANidine HCL 4 MG TABLET PO SCH (19:58)
[2021-11-02] MEDS: INSULIN GLARGINE SOLOSTAR 100 UNITS/ML 3 ML PEN SC SCH (20:10)
[2021-11-03] MEDS: ATORVASTATIN 10 MG TAB PO SCH (07:33)
[2021-11-03] MEDS: DOCUSATE SODIUM 100 MG CAP PO SCH (07:34)
[2021-11-03] MEDS: DULoxetine HCL 20 MG CAP PO SCH (07:34)
[2021-11-03] MEDS: lisinopril 2.5 MG TAB PO SCH (07:35)
[2021-11-03] MEDS: lamoTRIgine 100 MG TAB PO SCH (07:35)
[2021-11-03] MEDS: PANTOprazole 40 MG TAB PO SCH (07:36)
[2021-11-03] MEDS: PRAZOSIN HCL 1 MG CAP PO SCH (07:36)
[2021-11-03 07:49] LABS: Hematocrit (blood only) 40.1 % (42-52); Hemoglobin 14.7 g/dL (14.0-18.0); Mean Corpuscular Hemoglobin 31.3 pg (25-34); Mean Corpuscular Hgb Conc 36.7 g/dL (32-36); Mean Corpuscular Volume 85.5 fL (80-100); Mean Platelet Volume 9.6 fL (7.4-10.4); Platelet Count 117 K/uL (130-400); RDW Coefficient of Variation 13.2 % (11.5-14.5); RDW Standard Deviation 40.5 fL (36.4-46.3); Red Blood Count 4.69 M/uL (4.7-6.1); White Blood Count 5.19 K/uL (4.8-10.8)
[2021-11-03 08:34] LABS: Albumin Globulin Ratio 1.7 (0.9-2); Albumin Level 3.8 gm/dl (3.4-5.0); BUN Creatinine Ratio 11.8 (10-20); Bilirubin,Total 0.5 mg/dl (0.2-1.0); Calcium 8.5 mg/dl (8.5-10.1); Creatinine Clr Calc Pharmacy 129.4 ml/min; Est GFR (African American) 116.1 ml/min; Est GFR (Non-African American) 100.2 ml/min; Globulin 2.3 gm/dl (2.5-4.0); Phosphorus 4.2 mg/dl (2.5-4.9); Potassium 3.8 mmol/L (3.5-5.1); Total Protein 6.1 gm/dl (6.0-8.3)
[2021-11-03] MEDS: INSULIN ASPART PER UNIT SC SCH ×2 (08:39→11:58)
--- NOTE | 2021-11-03 12:44 | Discharge Summary ---
Date of Service November 03, 2021 Admission HPI Per Admitting Provider This is a 51-year-old male with past medical history significant for diabetes, hyperlipidemia, hypertension, GERD, nonalcoholic fatty liver disease, history of dental caries, orofacial dyskinesia, factor V Leiden mutation, schizoaffective disorder, bipolar disorder, generalized anxiety disorder, depression, posttraumatic stress disorder, who presents with coffee-ground vomitus. The patient states it is going on for the last 2 weeks, it is not getting better. In the last few days, he was not able to eat anything because whatever he is eating he is vomiting. He had some abdominal discomfort, did not notice any bl ood in the stools or black stools. His Hemoccult was positive in the ER. Denies any headache. No blurred visions, no earache, no runny nose, no sore throat, no cough, no fevers, no chest pain, no shortness of breath. The belly pain sometimes radiates to the chest. Normal bladder movements. Currently, resting comfortably and hemodynamically stable. Principal Diagnosis Nausea, vomiting Mild gastritis Discharge Exam Appeared well, no acute distress. Tolerating a regular diet. Reports some n ausea but no vomiting Discharge Data Allergies Allergy/AdvReac Type Severity Reaction Status Date / Time ziprasidone Allergy Severe FACIAL Verified 10/30/21 23:32 SWELLING; RASH chlorpromazine Allergy Mild RASH Verified 10/30/21 23:32 cyclobenzaprine Allergy Mild RASH Verified 10/30/21 23:32 tramadol Allergy Mild RASH Verified 10/30/21 23:32 valproic acid AdvReac Severe NEURO Verified 10/30/21 23:32 DEFICITS Consultations 10/30/21 23:07 ED Decision to Admit Stat 10/31/21 08:00 Consult Gastroenterology Routine Procedures Performed Operation Date: 11/01/21 16:30 Actual Procedures p EGD Biopsy Cytology - [place] Taylor MD Ordered Studies 10/30/21 21:34 CT abd pelvis IV con only Urgent Hospital Course Mr Wilner Arce is a 51 year old man with history of mood disorder, T2 DM on insulin, hypertension was admitted 10/31 for nausea/vomiting and with reports of dark emesis "coffee ground". His hemoglobin remained stable here and did not require transfusion. He underwent EGD 11/01 which only revealed mild gastritis but was otherwise normal. He then subsequently underwent a gastric emptying study which was normal. His diet was slowly advanced and at the time of discharge, he was tolerating a regular diet and will go home on a Carb controlled diet. He reports mild intermittent nausea and was given a prescription for zofran ODT to be used as needed. Total Time Total Time Spent Total Time Spent (In Minutes): 35 Discharge Plan Discharge Items Patient Disposition: Home - Self-Care Reason For Visit: VOMITING Discharge Diagnosis: Nausea, vomiting Mild, chronic gastritis Condition on Discharge: Good Activity: Resume your previous activity Non-emergency contact: Primary Care Provider Call non-emergency contact if: you have any medication questions and your symptoms worsen Follow-up/Referrals: Gloria Skaggs DO [Primary Care Provider] - (Date & Time 11/07/2021 11:20 AM Provider Gloria Skaggs DO Department [facility] ) Diet: Carb Consistent or DM2 Addtl Attending Provider Instructions: You were admitted for nausea and vomiting Your workup here included an EGD and gastric emptying study. Both were normal You are able to tolerate a regular diet. Please continue diabetic diet at home Zofran as needed for nausea Pending Studies at Discharge: No Stand-Alone Forms: [facility] dilitronics, Smoking Cessation Medications and DC Order Prescriptions: New ondansetron 4 mg tablet,disintegrating 4 mg PO TID PRN (Reason: nausea and vomiting) 4 Days Qty: 14 RF: 0 pantoprazole 40 mg Tablet,Delayed Release (Dr/Ec) 40 mg PO QAM 14 Days Qty: 14 RF: 0 Continued metformin 500 mg tablet 500 mg PO HS RF: 0 polyethylene glycol 3350 [Miralax] 17 gram Powder In Packet 17 g PO DAILY PRN (Reason: Constipation) RF: 0 atorvastatin 10 mg tablet 10 mg PO DAILY RF: 0 tizanidine 4 mg tablet 4 mg PO HS RF: 0 sumatriptan succinate 100 mg tablet 100 mg PO DIRECTED PRN (Reason: Migraine Headache) RF: 0 hydroxyzine HCl 50 mg tablet 100 mg PO HS RF: 0 omeprazole 40 mg capsule,delayed release(DR/EC) 40 mg PO DAILY RF: 0 Lactobacillus acidophilus Tablet 0 mmu cells PO DAILY PRN (Reason: Constipation) RF: 0 magnesium hydroxide [Milk of Magnesia] 400 mg/5 mL Suspension 15 ml PO DAILY PRN (Reason: Constipation) RF: 0 metformin 1,000 mg tablet 1,000 mg PO QAM RF: 0 haloperidol 20 mg tablet 20 mg PO HS RF: 0 Enema 19-7 gram/118 mL Enema 118 ml ND DIRECTED PRN (Reason: Constipation) RF: 0 benztropine 2 mg tablet 2 mg PO HS RF: 0 hydroxyzine HCl 25 mg tablet 25 mg PO HS RF: 0 albuterol sulfate 90 mcg/actuation HFA aerosol inhaler 2 puff INHALATION QID RF: 0 lisinopril 2.5 mg tablet 2.5 mg PO DAILY RF: 0 docusate sodium 100 mg Tablet 100 mg PO BID RF: 0 lamotrigine 100 mg tablet 100 mg PO BID RF: 0 prazosin 2 mg capsule 2 mg PO QAM RF: 0 prazosin 2 mg capsule 6 mg PO HS RF: 0 duloxetine 20 mg capsule,delayed release(DR/EC) 40 mg PO DAILY RF: 0 Lantus Solostar U-100 Insulin 100 unit/mL (3 mL) insulin pen 10 unit SUBCUT HS RF: 0 Belsomra 5 mg tablet 5 mg PO HS RF: 0 Abilify Maintena 400 mg suspension,extended rel syring 400 mg IM .[id number] RF: 0 Trulicity 4.5 mg/0.5 mL pen injector 4.5 mg SUBCUT WE RF: 0 Discharge Orders: Discharge Order (Routine); Ordered 11/03/21 Ordered By: Hailey Calloway Admission Data Admit Date/Time: 10/31/21 00:11 Attending Provider: Hailey Calloway Admit Provider: Channing Weiss Primary Care Provider: Gloria Skaggs Other Providers: Kary Keene ; Channing Weiss ; Gurinder Schwartz Other Interventions: Discharge Summary Assessment (RN) Last Done: 11/03/21 10:36
== END 2021-11-03 12:59 | disposition home or self-care (01) | DRG 378 ==
LOC: ED 21:20 → SUATTDRO 10-31 00:11 → INTOOBSV 10-31 00:11 → 2S 10-31 00:11

== ENCOUNTER 2023-10-14 13:03 | Observation (INO) ==
--- OUTSIDE RECORDS SUMMARY | 2023-10-14 13:08 | External Medical Summary | Summary of Care ---
Author Name Unknown Organization [facility] Address [address] [place] [address] Phone [phone] Care Team Providers Care Paper Gluing Operator Name Role Phone Gloria Skaggs DO Primary Care Provider Reason for Visit * Reason Comments Physical-Exam annual physical for MA51 and stitch removal Encounter Details Date Type Department Care Team (Latest Contact Info) Description 09/27/2023 9:20 AM EDT Office Visit [facility] [address] [facility] [place] [address] Gloria Skaggs DO [address] [place] [address] Type 2 diabetes mellitus with diabetic polyneuropathy, with long-term current use of insulin ([facility]; Schizoaffective disorder, bipolar type ([facility]); Bipolar disorder, in partial remission, most recent episode depressed ([facility]); Bilateral occipital neuralgia; Dyslipidemia, goal LDL below 100; Gastroesophageal reflux disease without esophagitis; Essential hypertension with goal blood pressure less than 140/90; Factor V Leiden mutation ([facility]); Generalized anxiety disorder; Gastroparesis; Major depressive disorder with single episode, in partial remission ([facility]); NAFLD (nonalcoholic fatty liver disease); Post-traumatic stress disorder, chronic; Type 2 diabetes mellitus with hemoglobin A1c goal of less than 7.0% (HCC); Episodic tension-type headache, not intractable; Laceration of digital nerve of finger, subsequent encounter; Type II diabetes mellitus with neurological manifestations ([facility]) Allergies Active Allergy Reactions Criticality Noted Date Comments Chlorpromazine 05/09/2016 aggitation Cyclobenzaprine Low 12/17/2020 Other reaction(s): RASH Valproic Acid 05/09/2016 "unable to function" Ziprasidone Hydrochloride 02/23/2010 Tramadol Low 12/17/2020 Other reaction(s): RASH Ziprasidone High 12/17/2020 Other reaction(s): FACIAL SWELLING; RASH documented as of this encounter (statuses as of 09/27/2023) Medications Medication Sig Dispensed Refills Start Date End Date Status hydrOXYzine HCl 50 MG Tablet Take 2.5 Tablets by mouth at bedtime. 0 9 Active lamoTRIgine (LAMICTAL) 100 MG Tablet 2 times a day. 0 0 Active Benztropine Mesylate 2 MG Oral Tablet (Cogentin) Take 1 Tablet by mouth at bedtime. 0 1 Active hydrOXYzine HCl 25 MG Oral Tablet Take 1 Tablet by mouth in the morning. 0 Active Prazosin HCl 2 MG Oral Capsule (Minipress) Take 3 Capsules by mouth at bedtime. 0 Active Accu-Chek FastClix Lancet KitIndications:Typ e 2 diabetes mellitus with hemoglobin A1c goal of less than 7.0% ([facility]) Use twice daily E11.9 insulin dependent 1 Kit 0 2 Active Prazosin HCl 2 MG Oral Capsule (Minipress) Take 2 Capsules by mouth in the morning. 0 Active Accu-Chek Guide Me w/Device KitIndications:Typ e 2 diabetes mellitus with hemoglobin A1c goal of less than 7.0% (HCC) Use twice daily to check blood sugar. 1 Kit 1 3 Active BD Pen Needle Chandrika U/F 32G X 4 MM (Insulin Pen Needle)Indications :Type 2 diabetes mellitus with hemoglobin A1c goal of less than 7.0% (HCC) Use with Lantus and Novolog pen 3 times daily DxE11.9 300 Each 3 3 Active Dexcom G7 SensorIndications: Type 2 diabetes mellitus with hemoglobin A1c goal of less than 7.0% (HCC) Use to read blood glucose. Change every 10 days. 9 Each 3 3 Active Dexcom G7 Game Warden DeviceIndications: Type 2 diabetes mellitus with hemoglobin A1c goal of less than 7.0% (HCC) Use to read Dexcom G7 CGM as directed. 1 Each 0 3 Active Polyethylene Glycol 3350 17 GM/SCOOP Oral Powder (Miralax)Indicatio ns:HTN, goal below 140/90 Take 17 g by mouth in the morning and 17 g before bedtime. Mix 17 grams (1 capful) in 8 oz of water twice daily. May use 2 capfuls twice daily for severe constipation. Maximum of 4 capfuls daily.. 850 g 3 Active Alcohol Wipes 70 % ExternalIndication s:Type 2 diabetes mellitus with hemoglobin A1c goal of less than 7.0% (HCC) Use to wipe skin prior to placing continuous glucose monitor. 100 Each 3 3 Active Dexcom G7 Game Warden Device USE TO READ DEXCOM G7 CGM DIRECTED 1 Each 0 3 11/14/19 24 Active Dexcom G7 Sensor USE TO READ BLOOD GLUCOSE. CHANGE EVERY 10 DAYS 9 Each 3 11/14/19 24 Active Nortriptyline HCl 25 MG Oral Capsule (Pamelor)Nenao ns:Common transformed migraine without aura TAKE 1 CAPSULE BY MOUTH DAILY AT BEDTIME FOR MOOD DISORDER 90 Capsule 5 3 Active Famotidine 40 MG Oral Tablet (Pepcid) TAKE ONE TAB BY MOUTH AT BEDTIME *GERD* 28 Tablet 10 3 Active Sucralfate 1 GM Oral Tablet (Carafate)Mingti ons:Abdominal pain, epigastric Take 1 Tablet by mouth 4 times a day before meals and at bedtime. Dissolve in 4 oz of water. 120 Tablet 11 3 Active Coricidin HBP Cough/Cold 4-30 MG Oral Tablet (Chlorpheniramine- DM) Take 1 Tablet by mouth every 4 hours as needed for Congestion. 24 Tablet 1 3 Active tiZANidine HCl 4 MG Oral Tablet (Zanaflex)Mingti ons:Episodic tension-type headache, not intractable TAKE 1 TABLET BY MOUTH AT BEDTIME FOR SPASMS 28 Tablet 4 3 Active Docusate Sodium 100 MG Oral Capsule (Colace)Indication s:Constipation, unspecified constipation type TAKE ONE CAPSULE BY MOUTH TWO TIMES DAILY *CONSTIPATION* 56 Capsule 4 3 Active metFORMIN HCl 1000 MG Oral Tablet (Glucophage)Indica tions:Type 2 diabetes mellitus with hemoglobin A1c goal of less than 7.0% (HCC) TAKE 1 TABLET BY MOUTH TWICE DAILY IN THE MORNING AND EVENING FOR DM 56 Tablet 10 3 Active Trulicity 4.5 MG/0.5ML Subcutaneous Solution Pen-injector (Dulaglutide)Indic ations:Type 2 diabetes mellitus with hemoglobin A1c goal of less than 7.0% (HCC) Inject 4.5 mg under the skin once a week. 2 mL 12 3 Active Acidophilus Oral Capsule Take 2 Capsules by mouth in the morning. Take 2 Capsules by mouth daily.. 60 Capsule 5 4 Active Ondansetron 4 MG Oral Tablet Disintegrating (Zofran) Place 1 Tablet on tongue every 8 hours as needed for Nausea. dissolve on tongue. 30 Tablet 1 4 Active Atorvastatin Calcium 10 MG Oral Tablet (Lipitor)Indicatio ns:Dyslipidemia, goal LDL below 100 Take 1 Tablet by mouth in the morning. 90 Tablet 1 4 Active ReadyLance Safety LancetsIndications :Type 2 diabetes mellitus with hemoglobin A1c goal of less than 7.0% (HCC) TEST BLOOD SUGAR FOUR TIMES DAILY FOR DM. DX: E11.9 400 Each 3 4 Active Linzess 290 MCG Oral Capsule (linaCLOtide) Take 1 Capsule by mouth daily before breakfast. 90 Capsule 1 4 Active Abilify Asimtufii 960 MG/3.2ML Intramuscular Prefilled Syringe 0 3 Active Accu-Chek Guide In Vitro Strip (Glucose Blood)Indications: Type 2 diabetes mellitus with hemoglobin A1c goal of less than 7.0% (HCC) TEST BLOOD SUGAR FOUR TIMES DAILY FOR DM. DX: E11.9 400 Strip 3 4 Active Haloperidol 5 MG Oral Tablet (Haldol) 0 4 Active Pantoprazole Sodium 40 MG Oral Tablet Delayed Release (Protonix)Indicati ons:Gastroesophage al reflux disease with esophagitis without hemorrhage TAKE ONE TABLET BY MOUTH ONCE DAILY FOR GERD 28 Tablet 5 4 Active SUMAtriptan Succinate 100 MG Oral TabletIndications: Migraine without aura and without status migrainosus, not intractable Take 1 Tablet by mouth as needed for Migraine. May repeat x 1 after 2 hours in case of refractory migraine; no more than 2 pills without 48 hour time period 9 Tablet 5 4 Active Insulin Lispro (1 Unit Dial) 100 UNIT/ML Subcutaneous Solution Pen-injector (HumaLOG KwikPen)Indication s:Type 2 diabetes mellitus with hemoglobin A1c goal of less than 7.0% (HCC) Inject 4 Units under the skin 2 times a day with morning and evening meals. Or as directed 15 mL 3 4 Active Insulin Glargine Solostar 100 UNIT/ML Subcutaneous Solution Pen-injector (Lantus SoloStar)Indicatio ns:Type 2 diabetes mellitus with hemoglobin A1c goal of less than 7.0% (HCC) Inject 50 Units under the skin at bedtime. 45 mL 3 4 Active Lisinopril 2.5 MG Oral Tablet (Prinivil) Take 1 Tablet by mouth in the morning. 30 Tablet 11 4 Active Gabapentin 300 MG Oral Capsule (Neurontin)Indicat ions:Bilateral occipital neuralgia,Episodic tension-type headache, not intractable Take 1 Capsule by mouth in the morning and 1 Capsule at noon and 1 Capsule before bedtime. 90 Capsule 11 4 Active Lisinopril 5 MG Oral Tablet (Prinivil)Indicati ons:HTN, goal below 140/90 Take 1 Tablet by mouth in the morning. 90 Tablet 1 4 09/27/19 24 Discontinued Gabapentin 300 MG Oral Capsule (Neurontin)Indicat ions:Episodic tension-type headache, not intractable,Bilate ral occipital neuralgia Take 1 Capsule by mouth at bedtime. 30 Capsule 5 4 09/27/19 24 Discontinued(Re fill) Gabapentin 300 MG Oral Capsule (Neurontin)Indicat ions:Bilateral occipital neuralgia,Episodic tension-type headache, not intractable Take 1 Capsule by mouth at bedtime. 30 Capsule 5 4 09/27/19 24 Discontinued(Re fill) documented as of this encounter (statuses as of 09/27/2023) Active Problems Problem Noted Date Diagnosed Date Type 2 diabetes mellitus wit h diabetic polyneuropathy, with long-term current use of insulin 09/27/2023 Gastroparesis 05/08/2023 Type 2 diabetes mellitus with diabetic polyneuro christian 10/06/2022 Bilateral occipital neuralgia 09/22/2022 Chronic constipation 01/07/2022 Bipolar disorder, in partial remission, most recent episode depressed 08/08/2019 Schizoaffective disorder, bipolar type 0 Generalized anxiety disorder 08/08/2019 Major depressive disorder, single episode, unspe cified 08/08/2019 Post-traumatic stress disorder, chronic 08/08/19 20 Schizoaffective disorder 05/09/2016 Essential hypertension with goal blood pressure less than 140/90 05/09/2016 Factor V Leiden mutation 04/05/2015 NAFLD (nonalcoholic fatty liver disease) 015 Dyslipidemia, goal LDL below 100 12/10/2014 Type 2 diabetes mellitus wit h hemoglobin A1c goal of less than 7.0% 08/18/2013 Overview: ICD-10 update of inactive term Dental caries 11/05/2012 Snoring 11/05/2012 Smokeless tobacco use 11/05/2012 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 08/01/2010 Esophageal reflux 02/23/2010 Bipolar disorder Overview: Psychiatry: Carol De Counselor: Hector Quan documented as of this encounter (statuses as of 09/27/2023) Resolved Problems Problem Noted Date Diagnosed Date Resolved Date Uncontrolled type 2 diabetes mellitus with hyperglycemia 10/31/2018 01/19/2021 Schizophrenia 04/18/2016 05/09/2016 HTN, goal below 140/90 02/22/201105/09 Obesity, Class II, BMI 35-39 .9, isolated (see actual BMI) 02/23/2010 01/15/2018 Type 2 diabetes mellitus wit h hemoglobin A1c goal of less than 7.0% 11/14/2010 Overview: ICD-10 update of inactive term HTN, goal below 130/80 02/22 SCHIZOID PERSONALITY NOS documented as of this encounter (statuses as of 09/27/2023) Immunizations Name Administration Dates Next Due COVID-19 mRNA, LNP-s, No Pre serve, 2-Dose Series (Loterity) 05/10/2021,09/09/2020,08/20/2020 Hepatitis B, 20+ yrs 12/10/2014,04/10/2014,10/07 PPD 06/11/2020,11/01/2018 Pneumococcal Conjugate Vacc, 13 Valent (Prevnar) 07/04/2019 Pneumococcal Polysaccharide PPV23 (Pneumovax) 06/15/2010 Seasonal Influenza Virus Vac cine, Unspecified Formulation 04/13/2022,04/15/2013 Seasonal Influenza, PF, 6 M & above, IM , (FluLaval or Fluzone) 04/02/2023,04/13/2022,04/09/2020,04/07,05/28/2018,04/06/2017 Seasonal Influenza, Quadriva lent, No Preserve, IM 05/11/2015 Seasonal Influenza, Split, I IV3, With Preserve, Inj 04/28/2016,03/17/2014,07/29/2013,04/15,04/08/2012,04/12/2011,05/26/2010 TD, Preservative Free 06/08/2020 TDAP (age 11 and older)(Adacel) 06/15/2010 documented as of this encounter Social History Tobacco Use Types Packs/Day Years Used Date Smoking Tobacco: Never Smokeless Tobacco: Current Snuff, Chew Tobacco Cessation:Ready to Q uit: Not Asked; Counseling Given: Not Answered Comments:No passive smoke exposure Alcohol Use Standard Drinks/Week Comments Not Currently 0 (1 standard drink = 0.6 oz pur e alcohol) 8 years of sobrity PHQ-2 Answer Date Recorded PHQ-2 Score 0 10/31/2018 Hunger Vital Sign Answer Date Recorded Worried About Running Out of Food in the Last Ye ar Never true 01/22/2020 Ran Out of Food in the Last Year Never true 01/22/2020 Sex and Gender Information Value Date Recorded Sex Assigned at Male 01/22/2020 11:51 AM EDT Gender Identity Male 01/22/2020 11:51 AM EDT Sexual Orientation Not on file Job Start Date Occupation Industry Not on file Not on file Not on file documented as of this encounter Last Filed Vital Signs Vital Sign Reading Time Taken Comments Blood Pressure 110/74 09/27/2023 8:52 AM EDT Pulse 88 09/27/2023 8:52 AM EDT Temperature 35.9 C (96.7 F) 09/27/2023 8:52 AM ED T Respiratory Rate 16 09/27/2023 8:52 AM EDT Oxygen Saturation 98% 09/27/2023 8:52 AM EDT Inhaled Oxygen Concentration - - Weight 106.5 kg (234 lb 12.8 oz) 09/27/2023 8:52 AM EDT Height 180.3 cm (5' 11") 09/27/2023 8:52 AM EDT Body Mass Index 32.75 09/27/2023 8:52 AM EDT documented in this encounter Patient Instructions * Patient Instructions* Noris Kahn CCMA - 09/27/2023 9:59 AM EDT Diabetes: Keeping Feet Healthy Inspect your feet every day for signs of a problem. Diabetes can damage nerves in your feet and cause neuropathy. This condition makes it hard for you to feel injuries or sore spots. Diabetes can also change blood flow, making it harder for small problems, like a blister, to heal properly. In fact, minor injuries can quickly become serious infections that send you to the hospital. Practice self-care to protect your feet and keep them healthy. Take Special Care Inspect your feet daily for problems such as redness, blisters, cracks, dry skin, or numbness. Use a mirror to see the bottoms of your feet. Or, ask for help. Manage your diabetes. Monitor and control your blood sugar. Take all your medications as prescribed. Avoid walking barefoot, even indoors. Wash your feet with warm water and mild soap. Dry well, especially between toes. Dont treat corns or calluses yourself. Talk to your doctor or aircrewman (a doctor who specializes in foot care) if you need assistance trimming your toenails. Use moisturizing cream or lotion if you have dry skin, but dont use it between toes. Dont use heating pads on your feet. If you have neuropathy, you could get a burn and not feel it. Stop smoking. Smoking restricts blood flow and can make it harder for wounds to heal. Have Regular Checkups Foot problems can develop quickly. So be sure to follow your healthcare teams schedule for regular checkups. During office visits, take off your shoes and socks as soon as you get in the exam room. Ask your healthcare provider to examine your feet for problems. This will make it easier to find and treat small skin irritations before they get worse. Regular checkups can also help keep track of the blood flow and feeling in your feet. If you have neuropathy, you may need to have checkups more often. Wear Proper Footwear Wearing proper footwear is very important. If areas of your feet have been damaged by too much pressure, your healthcare provider may recommend changing your footwear. In some cases, avoiding high heels or tight work boots may be all thats needed. Or, your healthcare provider may recommend special shoes or custom inserts. These help protect your feet and keep existing irritations from getting worse. If you need special footwear, ask your healthcare provider if you qualify for [employer] diabetic shoe program. Make Sure Shoes and Socks Fit Any pair of shoes--new or old--should feel comfortable as soon as you put them on. There shouldnt be any rubbing when you walk. Wear the right shoe for any activity. For instance, a running shoe is designed to keep your feet injury-free while jogging. Buy shoes at the end of the day, when your feet are larger. Make sure they provide support without feeling too loose. Make sure your socks fit, t oo. Wear soft, seamless, well-padded socks for activity. Cotton or microfiber socks are best to help to absorb sweat. To protect your feet, avoid shoes that are open-toed or open-heeled. If you have questions about what kinds of shoes and socks are best, talk to your healthcare team. Get Regular Exercise Regular exercise improves blood flow in your feet. It also increases foot strength and flexibility.Gentle exercises, like walking or riding a stationary bicycle, are best. You can also do special foot exercises. Just be sure to talk with your healthcare provider before starting any exercise program. Also mention if any exercise causes pain, redness, or other signs of foot problems. Note: If you have any kind of break in the skin of your foot or ankle, keep the area clean. Then call your doctor--especially if the area doesnt appear to be healing. 0713-2912 [employer], [address] [place] [address], [place] [address]. All rights reserved. This information is not intended as a substitute for professional medical care. Always follow your healthcare professional's instructions. documented in this encounter Progress Notes * Noris Kahn CCMA - 09/27/2023 9:59 AM EDT DM Foot Exam completed today. Provider aware. SONNY Yost Socks and Shoes Removed for Annual Diabetic Foot Screening RIGHT FOOT: Area of Concern: cracking on heel . RIGHT Dorsalis Pedis Pulse: Palpable RIGHT Posterior Tibial Pulse: Palpable RIGHT Monofilament:Patient reports feeling monofilament pressure on plantar surface of foot LEFT FOOT: Cracking on heel LEFT Dorsalis Pedis Pulse: Palpable LEFT Posterior Tibial Pulse: Palpable LEFT Monofilament:Patient reports feeling monofilament pressure on plantar surface of foot Do you need diabetic shoes: No * Gloria Skaggs, - 09/27/2023 9:10 AM EDT Wilner Castellanos Yazmin Kaplan is a 53 year old male who presents for an annual check-up. Current concerns: Patient's past medical, surgical, family, and social history were reviewed. Medications, allergies, immunizations, and health care maintenance screenings were also reviewed. Just saw MTM for DM- BG running high, Truliucity, Lantus, and Lispro increased. Diet, activity discussed Needs MA 51 filled out, lives in [place] Sees psychiatry Neuropathy in b/l LEs, feet to calf. Pain, change gabapentin to TID, work on sugar control, MTM hasadjusted medications. Reviewed neurology OVN for migraines: Mr. Arce has continue with the headaches despite the last addition of nortriptyline. He is well 2 to 3 headaches per week now and range is from 7 to 8 on a 10 point pain scale. He locates the headaches to the occipital region a long were the occipital nerve runs on both sides. He has had initial benefit occipital nerve blocks but not subsequent treatments and this was since abandoned. He has stayed on tizanidine 4 milligrams at bedtime. There was a recent change in his medications he has not on lithium anymore and also not on Seroquel as well as duloxetine. He is still on the Abilify injection and was just added low-dose Haldol 10 milligrams at bedtime 2 days ago. His dose of Lamictal is at 150 milligrams twice a day now. He sleeps good at night. He will have a sleep study next month done. He takes Imitrex for the headaches but does not think it really works well anymore. NEUROLOGIC EXAMINATION: Mental status: Intact higher integrative functions. Orientated to person, place, and time. Recent and remote memory functions are intact. Attention, concentration, language, and fund of knowledge arenormal. Judgment and insight are intact. Mood and affect are normal. He has no overt focality. I could not appreciate any clear extrapyramidal signs. He has no resting tremor but he does have a bit akathisia. His neck is fairly supple but he does have occipital trigger point tenderness. IMPRESSION: The patient continues with mixed headaches, migraines and tension headaches with additional occipital neuralgia. Unfortunately, he has not really had continuous benefit with occipital nerve blocks. He is now back on Haldol and he wished to be very vigilant about neuroleptic induced side effects with this potent medication. At present he does not have a Parkinson's syndrome and it is reasonable to keep him on the benztropine. RECOMMENDATIONS: At this point, we can add either topiramate which she was on before for other reasons or gabapentin. I would prefer gabapentin because of his neuralgia component. I will start him on 300 milligrams of gabapentin at bedtime. Agree with the preceding with the sleep study to make sure he does not havea sleep apnea component contributing to his headaches. Next follow-up in 6 months. Thank-you for letting me participate in the care of this patient. 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[facility]) Dr Romero Schizophrenia ([facility]) 04/18/2016 Past Surgical History: Procedure Laterality Date COLONOSCOPY, DIAGNOSTIC (RECTUM) 02/06/2020 poor prep, repeat 6-12 mo / COLONOSCOPY FLEXIBLE PROXIMAL DIAGNOSTIC performed by Padmini Gerber [facility] COLONOSCOPY, DIAGNOSTIC (RECTUM) 03/10/2022 poor prep, repeat 3-5 yrs / COLONOSCOPY FLEXIBLE PROXIMAL DIAGNOSTIC performed by Padmini Gerber MD [facility] EGD, FLEXIBLE, DIAGNOSTIC 11/01/2021 normal bx / INPT [facility] EGD, FLEXIBLE, DIAGNOSTIC 11/06/2022 retained food / ESOPHAGOGASTRODUODENOSCOPY (EGD), FLEXIBLE, TRANSORAL, DIAGNOSTIC performed by MD Oscar at ENDOSCOPY [facility] KNEE ARTHROSCOPY/MENISCECTOMY Left 05/07/2020 ARTHROSCOPY KNEE MEDIAL OR LATERAL MENISCECTOMY performed by Anderson Lainez DO at OR [facility] MISCELLANEOUS ORDER ([facility] ONLY) left knee, graft MISCELLANEOUS ORDER ([facility] ONLY) r hand, steel plate REMOVE GALLBLADDER Current Outpatient Medications Medication Sig Dispense Refill hydrOXYzine HCl 50 MG Tablet Take 2.5 Tablets by mouth at bedtime. lamoTRIgine (LAMICTAL) 100 MG Tablet 2 times a day. Benztropine Mesylate 2 MG Oral Tablet (Cogentin) Take 1 Tablet by mouth at bedtime. hydrOXYzine HCl 25 MG Oral Tablet Take 1 Tablet by mouth in the morning. Prazosin HCl 2 MG Oral Capsule (Minipress) Take 3 Capsules by mouth at bedtime. Accu-Chek FastClix Lancet Kit Use twice daily E11.9 insulin dependent 1 Kit 0 Prazosin HCl 2 MG Oral Capsule (Minipress) Take 2 Capsules by mouth in the morning. Accu-Chek Guide Me w/Device Kit Use twice daily to check blood sugar. 1 Kit 1 BD Pen Needle Chandrika U/F 32G X 4 MM (Insulin Pen Needle) Use with Lantus and Novolog pen 3 times daily DxE11.9 300 Each 3 Dexcom G7 Sensor Use to read blood glucose. Change every 10 days. 9 Each 3 Dexcom G7 Game Warden Device Use to read Dexcom G7 CGM as directed. 1 Each 0 Polyethylene Glycol 3350 17 GM/SCOOP Oral Powder (Miralax) Take 17 g by mouth in the morning and 17g before bedtime. Mix 17 grams (1 capful) in 8 oz of water twice daily. May use 2 capfuls twice daily for severe constipation. Maximum of 4 capfuls daily.. 850 g 11 Alcohol Wipes 70 % External Use to wipe skin prior to placing continuous glucose monitor. 100 Each 3 Dexcom G7 Game Warden Device USE TO READ DEXCOM G7 CGM DIRECTED 1 Each 0 Dexcom G7 Sensor USE TO READ BLOOD GLUCOSE. CHANGE EVERY 10 DAYS 9 Each 3 Nortriptyline HCl 25 MG Oral Capsule (Pamelor) TAKE 1 CAPSULE BY MOUTH DAILY AT BEDTIME FOR MOOD DISORDER 90 Capsule 5 Famotidine 40 MG Oral Tablet (Pepcid) TAKE ONE TAB BY MOUTH AT BEDTIME *GERD* 28 Tablet 10 Sucralfate 1 GM Oral Tablet (Carafate) Take 1 Tablet by mouth 4 times a day before meals and at bedtime. Dissolve in 4 oz of water. 120 Tablet 11 Coricidin HBP Cough/Cold 4-30 MG Oral Tablet (Chlorpheniramine-DM) Take 1 Tablet by mouth every 4 hours as needed for Congestion. 24 Tablet 1 tiZANidine HCl 4 MG Oral Tablet (Zanaflex) TAKE 1 TABLET BY MOUTH AT BEDTIME FOR SPASMS 28 Tablet 4 Docusate Sodium 100 MG Oral Capsule (Colace) TAKE ONE CAPSULE BY MOUTH TWO TIMES DAILY *CONSTIPATION* 56 Capsule 4 metFORMIN HCl 1000 MG Oral Tablet (Glucophage) TAKE 1 TABLET BY MOUTH TWICE DAILY IN THE MORNING AND EVENING FOR DM 56 Tablet 10 Trulicity 4.5 MG/0.5ML Subcutaneous Solution Pen-injector (Dulaglutide) Inject 4.5 mg under the skin once a week. 2 mL 12 Acidophilus Oral Capsule Take 2 Capsules by mouth in the morning. Take 2 Capsules by mouth daily.. 60 Capsule 5 Ondansetron 4 MG Oral Tablet Disintegrating (Zofran) Place 1 Tablet on tongue every 8 hours as needed for Nausea. dissolve on tongue. 30 Tablet 1 Lisinopril 5 MG Oral Tablet (Prinivil) Take 1 Tablet by mouth in the morning. 90 Tablet 1 Atorvastatin Calcium 10 MG Oral Tablet (Lipitor) Take 1 Tablet by mouth in the morning. 90 Tablet 1 ReadyLance Safety Lancets TEST BLOOD SUGAR FOUR TIMES DAILY FOR DM. DX: E11.9 400 Each 3 Linzess 290 MCG Oral Capsule (linaCLOtide) Take 1 Capsule by mouth daily before breakfast. 90 Capsule 1 Abilify Asimtufii 960 MG/3.2ML Intramuscular Prefilled Syringe Accu-Chek Guide In Vitro Strip (Glucose Blood) TEST BLOOD SUGAR FOUR TIMES DAILY FOR DM. DX: E11.9 400 Strip 3 Haloperidol 5 MG Oral Tablet (Haldol) Gabapentin 300 MG Oral Capsule (Neurontin) Take 1 Capsule by mouth at bedtime. 30 Capsule 5 Pantoprazole Sodium 40 MG Oral Tablet Delayed Release (Protonix) TAKE ONE TABLET BY MOUTH ONCE DAILY FOR GERD 28 Tablet 5 SUMAtriptan Succinate 100 MG Oral Tablet Take 1 Tablet by mouth as needed for Migraine. May repeat x 1 after 2 hours in case of refractory migraine; no more than 2 pills without 48 hour time period 9Tablet 5 Insulin Lispro (1 Unit Dial) 100 UNIT/ML Subcutaneous Solution Pen-injector (HumaLOG KwikPen) Inject 4 Units under the skin 2 times a day with morning and evening meals. Or as directed 15 mL 3 Insulin Glargine Solostar 100 UNIT/ML Subcutaneous Solution Pen-injector (Lantus SoloStar) Inject 50 Units under the skin at bedtime. 45 mL 3 No current facility-administered medications for this visit. Review of patient's allergies indicates: Allergen Reactions Ziprasidone Other reaction(s): FACIAL SWELLING; RASH Chlorpromazine aggitation Depakote [Valproic Acid] "unable to function" Geodon [Ziprasidone Hydrochloride] Cyclobenzaprine Other reaction(s): RASH Tramadol Other reaction(s): RASH Social History Socioeconomic History Marital status: Spouse name: Not on file Number of children: 1 Years of education: Not on file Highest education level: Not on file Occupational History Employer: [employer] Comment: diasbility Tobacco Use Smoking status: Never Smokeless tobacco: Current Types: Snuff, Chew Tobacco comments: No passive smoke exposure Vaping Use Vaping Use: Never used Substance and Sexual Activity Alcohol use: Not Currently Comment: 8 years of sobrity Drug use: Not Currently Types: 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 Sexual activity: Yes Partners: Female Other Topics Concern Service No Blood Transfusions No Caffeine Concern Yes Occupational Exposure No Hobby Hazards No Sleep Concern Yes Stress Concern Yes Weight Concern Yes Special Diet Yes Back Care Not Asked Exercise No Bike Helmet Not Asked Seat Belt Yes Self-Exams Not Asked Social History Narrative Not on file Social Determinants of Health Financial Resource Strain: Not on file Food Insecurity: No Food Insecurity (01/22/2020) Hunger Vital Sign Worried About Running Out of Food in the Last Year: Never true Ran Out of Food in the Last Year: Never true Transportation Needs: Not on file Physical Activity: Not on file Stress: Not on file Social Connections: Not on file Intimate Partner Violence: Not on file Housing Stability: Not on file Family History Problem Relation Age of Onset Diabetes Mother Hypertension Mother Musculo-skeletal Disorder Mother fibromyalgia No Past Hx Father not known Review Of Systems Extensive ROS Constitutional (f/c/wt/vision/hearing): Negative Resp (cough/sob/gil[place]): Negative CV (cp/palp/fluttering/diaphoresis/gilmore/pnd):Negative GI (n/v/d/hrtburn): Negative Endo (hair/cold or heat intol/ 3 p's): Negative Neuro (shaking/weak/fatigu/parasthesi/): Negative Skin (rash/easy bruis/xerosis): Negative Psy (si/hi/halluc/): Negative (nocturia/hesit/drib/sexual review): Negative Lymph (swollen glands/b sx's/: Negative PHYSICAL EXAMINATION: BP 110/74 | Pulse 88 | Temp 35.9 C (96.7 F) (Temporal Artery) | Resp 16 | Ht 1.803 m (5' 11") |Wt 106.5 kg (234 lb 12.8 oz) | SpO2 98% | BMI 32.75 kg/m | BSA 2.31 m 10/04/2022 11/03/2022 11/06/2022 11/08/2022 12/04/2022 BP AND WT. Systolic 122 118 129 Systolic 123 Systolic 116 Diastolic 86 79 81 Diastolic 88 Diastolic 74 Weight 248 lb 248 lb 247 lb 9.6 oz 245 lb 12.8 oz Height 71 in 71 in Pulse 78 74 102 Pulse 72 Pulse 72 02/01/2023 02/26/2023 04/02/2023 04/09/2023 05/08/2023 BP AND WT. Systolic 130 131 108 122 Diastolic 80 82 64 72 Weight 242 lb 1.6 oz 247 lb 14.4 oz 253 lb 250 lb 6.4 oz 247 lb Height 71 in Pulse 107 121 96 96 05/28/2023 06/27/2023 07/24/2023 08/01/2023 09/07/2023 BP AND WT. Systolic 128 132 104 108 Diastolic 86 88 62 71 Weight 247 lb 244 lb 248 lb 3.2 oz 248 lb 1.6 oz 243 lb Height 71 in 71 in Pulse 114 103 114 109 09/10/2023 09/27/2023 BP AND WT. Systolic 110 Diastolic 74 Weight 243 lb 4.8 oz 234 lb 12.8 oz Height 71 in 71 in Pulse 88 General appearance - well nourished, comfortable. Skin - no rashes or lesions suspicious for malignancy. Head - without deformity, mass, or tenderness. Eyes - conjuctiva clear, EOMI, Ears - canals clear, TMs normal. Nose/Sinuses - normal mucosa without mass. Oropharynx -no oral lesions. Neck - normal ROM, supple, without adenopathy, thyromegaly, or bruit. Back - without deformity or tenderness. Lungs - symmetric and full breath sounds without rales, rhonchi, or wheezes. Heart - normal precordial impulse, PMI nondisplaced, normal S1,S2, without murmurs, rubs, or gallops. carotid upstrokes 2/4 without bruit. Abdomen - nondistended, no organomegaly, nontender to palpation,bowel sounds active. Extremities - no cyanosis, clubbing, or edema. Musculoskeletal - joints without restriction in range of motion or deformity. Peripheral pulses - symmetric and intact. Neuro - normal gait and station, without tremor, symmetric motor strength, DTRs symmetric. Latest Reference Range & Units 03/28/23 07:52 05/01/23 00:00 05/08/23 09:22 07/11/23 12:17 07/20/23 07:58 08/29/23 10:48 09/07/23 13:50 09/18/23 08:11 Triglycerides <=174 mg/dL 85 96 Cholesterol <200 mg/dL 115 86 Non-HDL Cholesterol <=159 mg/dL 57 38 HDL Cholesterol >39 mg/dL 58 48 LDL Cholesterol <=129 mg/dL 40 19 Sodium 135 - 146 mmol/L 137 Potassium 3.5 - 5.1 mmol/L 4.4 POTASSIUM-OUTSIDE LAB 3.5 - 5.1 MMOL/L 4.0 (E) Chloride 98 - 107 mmol/L 100 CO2 22 - 32 mmol/L 26 BUN 6 - 20 mg/dL 8 Creatinine 0.6 - 1.2 mg/dL 0.9 CREATININE-OUTSIDE LAB 0.6 - 1.4 MG/DL 0.96 (E) Estimated Glomerular Filtration Rate >=60 mL/min >90 EGFR-OUTSIDE LAB ML/MIN/1.73M2 89.9 (E) Anion Gap 7 - 15 mmol/L 11 Glucose 70 - 120 mg/dL 158 (H) GLUCOSE-OUTSIDE LAB 70 - 99 MG/DL 154 ! (E) Calcium 8.4 - 10.2 mg/dL 9.6 Magnesium 1.5 - 2.6 mg/dL 1.9 Protein 6.0 - 8.3 g/dL 7.2 6.8 6.6 Estimated Average Glucose <126 mg/dL 140 (H) 163 (H) Lipase 13 - 60 U/L 57 INR 0.8 - 1.2 0.9 1.0 Prothrombin Time 11.6 - 15.2 seconds 12.6 13.0 Hemoglobin A1C 4.0 - 5.6 % 6.5 (H) 7.3 (H) Hemoglobin A1c 4.0 - 5.6 % 8.0 (H) TSH 0.27 - 4.20 uIU/mL 2.25 T4, Free 0.9 - 1.7 ng/dL 1.0 CBC Rpt Rpt WBC 4.00 - 10.80 K/uL 7.77 7.02 RBC 4.50 - 5.25 M/uL 5.58 5.43 HGB 14.0 - 16.8 g/dL 16.3 (E) 16.7 16.4 HCT 40.0 - 48.4 % 46.8 47.2 MCV 82.0 - 99.5 fL 83.9 86.9 MCH 27.0 - 34.0 pg 29.9 30.2 MCHC 32.0 - 36.0 g/dL 35.7 34.7 RDW 11.5 - 15.5 % 12.8 12.8 PLT 140 - 400 K/uL 156 157 165 140 MPV 6.6 - 11.1 fL 9.5 10.6 CBC WITH WBC DIFFERENTIAL Rpt Absolute Neutrophils 1.80 - 7.70 K/uL 4.99 Absolute Lymphocytes 1.00 - 4.80 K/ul 1.41 Absolute Monocytes 0.00 - 1.10 K/uL 0.44 Absolute Eosinophils 0.00 - 0.70 K/uL 0.08 Absolute Basophils 0.00 - 0.20 K/uL 0.02 Vitamin B12 232 - 1,245 pg/mL 259 Albumin 3.8 - 5.0 g/dL 4.8 4.5 4.6 AST 10 - 50 U/L 31 31 30 ALT 10 - 50 U/L 63 (H) 42 45 Alkaline Phosphatase 35 - 130 U/L 105 104 98 Bilirubin, Total <=1.2 mg/dL 0.3 0.7 0.5 Bilirubin, Direct 0.0 - 0.3 mg/dL <0.2 <0.2 [place] Level 0.6 - 1.2 mmol/L 0.2 (L) PROTEIN, UA-OUTSIDE LAB NEGATIVE NEGATIVE (E) US ABDOMEN LIMITED Rpt CAP SCORE dB/m 346 (P) Fibrosis Staging Pend (P) IQR/med Range < 30% 5 (P) LIVER ELASTOGRAPHY W/O IMAGING Rpt Median Liver Stiffness kilopascal (kPa) 10.6 (P) Median Shear Wave Speed meters/second 1.88 (P) Hemoglobin AIC Results: No components found for: "[id number]" Lab Results Component Value Date/Time LDL CHOLESTEROL (CALCULATED) - [facility] 19 07/20/2023 07:58 AM LDL CHOLESTEROL (CALCULATED) - [facility] 40 03/28/2023 07:52 AM LDL CHOLESTEROL (CALCULATED) - [facility] 28 11/02/2022 08:23 AM LDL CHOLESTEROL (CALCULATED) - [facility] 33 01/08/2020 08:54 AM LDL CHOLESTEROL (CALCULATED) - [facility] 5 09/25/2018 09:02 AM LDL CHOLESTEROL (CALCULATED) - [facility] 37 02/13/2018 09:08 AM LDL CHOLESTEROL (DIRECT MEASURE) - [facility] NOT APPLICABLE 01/08/2020 08:54 AM LDL CHOLESTEROL (DIRECT MEASURE) - [facility] NOT APPLICABLE 02/13/2018 09:08 AM AST Results: Lab Results Component Value Date/Time AST - [facility] 30 09/18/2023 08:11 AM AST - [facility] 31 07/20/2023 07:58 AM AST - [facility] 31 03/28/2023 07:52 AM AST - [facility] 41 05/27/2020 10:30 AM AST - [facility] 41 01/08/2020 08:54 AM AST - [facility] 27 10/10/2018 09:46 AM ALT Results: Lab Results Component Value Date/Time ALT - [facility] 45 09/18/2023 08:11 AM ALT - [facility] 42 07/20/2023 07:58 AM ALT - [facility] 63 (H) 03/28/2023 07:52 AM ALT - [facility] 49 05/27/2020 10:30 AM ALT - [facility] 88 (H) 01/08/2020 08:54 AM ALT - [facility] 30 10/10/2018 09:46 AM ALT-OUTSIDE LAB 50 04/30/2017 12:00 AM ALT-OUTSIDE LAB 38 07/19/2016 12:00 AM Social History Tobacco Use Smoking Status Never Smokeless Tobacco Current Types: Snuff, Chew Tobacco Comments No passive smoke exposure BP Readings from Last 3 Encounters: 09/27/23 110/74 09/07/23 108/71 08/01/23 104/62 No results found for: "MICROALB" 10/01/2023 Immunization History Administered Date(s) Administered COVID-19 mRNA, LNP-s, No Preserve, 2-Dose Series (Pfizer) 08/20/2020, 09/09/2020, 05/10/2021 Hepatitis B, 20+ yrs 10/07/2013, 04/10/2014, 12/10/2014 PPD 11/01/2018, 06/11/2020 Pneumococcal Conjugate Vacc, 13 Valent (Prevnar) 07/04/2019 Pneumococcal Polysaccharide PPV23 (Pneumovax) 06/15/2010 Seasonal Influenza Virus Vaccine, Unspecified Formulation 04/15/2013, 04/13/2022 Seasonal Influenza, PF, 6 M & above, IM , (FluLaval or Fluzone) 04/06/2017, 05/28/2018, 04/07/2019, 04/09/2020, 04/13/2022, 04/02/2023 Seasonal Influenza, Quadrivalent, No Preserve, IM 05/11/2015 Seasonal Influenza, Split, IIV3, With Preserve, Inj 05/26/2010, 04/12/2011, 04/08/2012, 04/15/2013,07/29/2013, 03/17/2014, 04/28/2016 TD, Preservative Free 06/08/2020 TDAP (age 11 and older)(Adacel) 06/15/2010 Sutures removed from L 4th finger laceration ASSESSMENT/PLAN: A healthy, low fat, low cholesterol diet and 30-60 minutes of cardiovascular exercise daily were encouraged. A total of 1500mg of Calcium and 1000 IU of vitamin D were recommended daily, to be obtained from a combination of both diet and supplement sources. UTD vaccines SPF 30+ Type 2 diabetes mellitus with hemoglobin A1c goal of less than 7.0% (HCC) (Primary) Type 2 diabetes mellitus with diabetic polyneuropathy, with long-term current use of insulin ([facility]) Lantus increased from 42 to 52 units, Lispro increased from 3 to 4 units with meals, Continue Trulicity 4.5mg weekly. Metformin with breakfast and dinner (not bedtime) Eye exam scheduled 10/15/23 Schizoaffective disorder, bipolar type (HCC) Bipolar disorder, in partial remission, most recent episode depressed (HCC) Generalized anxiety disorder Major depressive disorder with single episode, in partial remission ([facility]) Post-traumatic stress disorder, chronic Abilify injection, lamictal, haldol, prazosin, benztropin, hydroxyzine, nortriptyline (planning on starting remeron) Bilateral occipital neuralgia - Gabapentin 300 MG Oral Capsule (Neurontin); Take 1 Capsule by mouth at bedtime. (Increase to TID for neuropathy) Dyslipidemia, goal LDL below 100 Atorvastatin 10mg Gastroesophageal reflux disease without esophagitis Protonix, carafate QID Essential hypertension with goal blood pressure less than 140/90 - Lisinopril 2.5 MG Oral Tablet (Prinivil); Take 1 Tablet by mouth in the morning. (Decrease from 5mg daily, due to lower BPs with weight loss, and feels lightheaded) Factor V Leiden mutation (HCC) Gastroparesis/Constipation Linzess, metamucil, miralax, improved with eating smaller meals NAFLD (nonalcoholic fatty liver disease) For biopsy Episodic tension-type headache, not intractable - Gabapentin 300 MG Oral Capsule (Neurontin); Take 1 Capsule by mouth at bedtime. Neuropathy Increase gabapentin to 300mg TID JEAN For sleep lab testing and CPAP titration Laceration of digital nerve of finger, subsequent encounter Suture removal Gloria Skaggs DO documented in this encounter Nursing Notes * Noris Kahn CCMA - 09/27/2023 8:52 AM EDT Wilner Arce Jr. is a 53 year old male who presents today for Chief Complaint Patient presents with Physical-Exam annual physical for MA51 and stitch removal documented in this encounter Miscellaneous Notes * Addendum Note - Noris Kahn CCMA - 09/27/2023 10:06 AM EDTAddended by: NORIS KAHN on: 09/27/2023 10:06 AM Modules accepted: Orders documented in this encounter Plan of Treatment Upcoming Encounters Date Type Department Care Team (Latest Contact Info) Description 10/01/2023 10:20 AM EDT Office Visit Family [facility] [place] [address] [place] [id number] Tatianna Jean PA-C [address] [place] [address] 10/16/2023 1:00 PM EDT Office Visit [facility] [place] [address] [place] [phone] Halley Kilpatrick CRNP [address] [place] [address] 10/22/2023 9:00 AM EDT Hospital Encounter ENDO [facility], Endoscopy Room [facility] [address] [place] [phone] Kary Keene MD [address] [place] [id number] 10/22/2023 9:00 AM EDT - 10/22/2023 10:00 AM EDT Surgery ENDO [facility], Endoscopy Room [facility] [address] [place] [phone] Kary Keene MD [address] [place] [address] ESOPHAGOGASTRODUODENOSCOPY (EGD), FLEXIBLE, TRANSORAL, ENDOSCOPIC ULTRASOUND 11/09/2023 8:30 AM EDT Office Visit Pharmacy, [facility] [place] [address] [facility] [place] [id number] Pharmacist1, [facility] [address] [place] [address] 01/02/2024 12:40 PM EDT Office Visit Family Practice [facility] [place] [address] [place] [address] Smith IIIJad MD [address] [place] [address] 01/31/2024 1:40 PM EDT Office Visit Neurology [facility] [place] [address] [facility] [place] [address] Ricardo Reza MD [address] [place] [address] Scheduled Orders Name Type Priority Associated Diagnoses Orde r Schedule SUTURE REMOVAL-BY OTHER PROVIDER Procedures Routine Laceration of digital nerve of finger, subsequent encounter Ordered: 09/27/2023 Scheduled Procedures Name Priority Associated Diagnoses Date/Ti me ESOPHAGOGASTRODUODENOSCOPY ( EGD), FLEXIBLE, TRANSORAL, ENDOSCOPIC ULTRASOUND Elevated LFTs 10/22/2023 9:00 AM EDT COLONOSCOPY FLEXIBLE PROXIMA L DIAGNOSTIC Recall Screen for colon cancer Health Maintenance Due Date Last Done Comments Cologuard 2014 Fecal Occult Blood Test 2014 Sigmoidoscopy 2014 Zoster Vaccines (1 of 2) 2019 Depression Screening 01/21/2021 01/22/2020, 11/01/2015 (Done elsewhere) COVID-19 Vaccine ( season) 2023 05/10/2021, 09/09/2020, 08/20/2020 Diabetic Eye Exam 08/21/2023 08/21/2022, , 07/07/2020, Additional history exists Albumin/Creatinine Ratio 11/03/2023 023, 08/24/2021, 10/18/2020, Additional history exists HbA1c 01/18/2024 07/20/2023, 06/16, 03/28/2023, Additional history exists B-12 05/08/2024 05/08/2023, 12/15, 01/08/2020, Additional history exists GFR 07/20/2024 07/20/2023, 04/15, 11/02/2022, Additional history exists Diabetic Foot Exam 09/26/2024 09/27/2023, 0 09/22/2022, 09/21/2021, Additional history exists Lipid Panel 07/20/2028 07/20/2023, 03/16, 11/02/2022, Additional history exists DTaP,Tdap,and Td Vaccines (3 - Td or Tdap) 06/08/2030 06/08/2020, 06/15/2010 Colonoscopy 03/10/2032 03/10/2022, 02/14, 02/06/2020, Additional history exists Colorectal Cancer Screening 03/10/2032 Pneumococcal Vaccine: Pediatrics (0 to 5 Years) and At-Risk Patients (6 to 64 Years) (3 of 3 - PPSV23 or PCV20) 2034 07/04/2019, 06/15/2010 Hepatitis B Completed 12/10/2014, 03/17, 10/07/2013 Influenza Vaccine (FLU shot) Completed , 04/13/2022, 04/13/2022, Additional history exists GARDASIL-HPV IMMUNIZATION SERIES Aged Out No longer eligible based on patient's age to complete this topic MENINGOCOCCAL (MENACTRA/MENVEO) Aged Out No longer eligible based on patient's age to complete this topic documented as of this encounter Medical Devices Not on filedocumented as of this encounter Visit Diagnoses Diagnosis Type 2 diabetes mellitus with diabetic polyneuropathy, with long-term current use of insulin (HCC)- Primary Schizoaffective disorder, bipolar type (HCC) Schizoaffective disorder, unspecified condition Bipolar disorder, in partial remission, most recent episode depressed (HCC) Bipolar I disorder, most recent episode (or current) depressed, in partial or unspecified remission Bilateral occipital neuralgia Other syndromes affecting cervical region Dyslipidemia, goal LDL below 100 Other and unspecified hyperlipidemia Gastroesophageal reflux disease without esophagitis Esophageal reflux Essential hypertension with goal blood pressure less than 140/90 Factor V Leiden mutation (HCC) Primary hypercoagulable state Generalized anxiety disorder Gastroparesis Major depressive disorder with single episode, in partial remission (HCC) NAFLD (nonalcoholic fatty liver disease) Other chronic nonalcoholic liver disease Post-traumatic stress disorder, chronic Type 2 diabetes mellitus with hemoglobin A1c goal of less than 7.0% (HCC) Episodic tension-type headache, not intractable Episodic tension type headache Laceration of digital nerve of finger, subsequent encounter Type II diabetes mellitus with neurological manifestations (HCC) Type II or unspecified type diabetes mellitus with neurological manifestations, not stated as uncontrolled Elevated LFTs Other abnormal blood chemistry documented in this encounter Care Teams Paper Gluing Operator Relationship Specialty Start Date End Date Gloria Skaggs DO [address] [place] [address] PCP - General Family Medicine 07/04/19 documented as of this encounter
--- OUTSIDE RECORDS SUMMARY | 2023-10-14 13:08 | External Medical Summary | Summary of Care ---
Author Name Unknown Organization [facility] Address [address] [place] [address] Phone [phone] Care Team Providers Care Computerized Machine Fabric Cutter Name Role Phone Gloria Skaggs DO Primary Care Provider Reason for Visit * Reason Comments Diabetes Follow-Up Dosage Adjustment In Person (Anticoag Cl inic) Encounter Details Date Type Department Care Team (Late st Contact Info) Description 09/27/2023 8:50 AM EDT Office Visit Pharmacy, [facility] [address] [place] [id number] Pharmacist1, [facility] [address] [facility] [place] [address] Type 2 diabetes mellitus with hemoglobin A1c goal of less than 7.0% ([facility])* Allergies Active Allergy Reactions Criticality Noted Date [...] at bedtime. 0 Active Accu-Chek FastClix Lancet KitIndications:Type 2 diabetes mellitus with hemoglobin A1c goal of less than 7.0% (HCC) Use twice daily E11.9 insulin dependent 1 Kit 0 2 Active Prazosin HCl 2 MG Oral Capsule (Minipress) Take 2 Capsules by mouth in the morning. 0 Active Accu-Chek Guide Me w/Device KitIndications:Type 2 diabetes mellitus with hemoglobin A1c goal of less than 7.0% (HCC) Use twice daily to check blood sugar. 1 Kit 1 3 Active BD Pen Needle Chandrika U/F 32G X 4 MM (Insulin Pen Needle)Indications: Type 2 diabetes mellitus with hemoglobin A1c goal of less than 7.0% (HCC) Use with Lantus and Novolog pen 3 times daily DxE11.9 300 Each 3 3 Active Dexcom G7 SensorIndications:T ype 2 diabetes mellitus with hemoglobin A1c goal of less than 7.0% (HCC) Use to read blood glucose. Change every 10 days. 9 Each 3 3 Active Dexcom G7 Environmental Services Attendant DeviceIndications:T ype 2 diabetes mellitus with hemoglobin A1c goal of less than 7.0% (HCC) Use to read Dexcom G7 CGM as directed. 1 Each 0 3 Active Polyethylene Glycol 3350 17 GM/SCOOP Oral Powder (Miralax)Indication s:HTN, goal below 140/90 Take 17 g by mouth in the morning and 17 g before bedtime. Mix 17 grams (1 capful) in 8 oz of water twice daily. May use 2 capfuls twice daily for severe constipation. Maximum of 4 capfuls daily.. 850 g 11 3 Active Alcohol Wipes 70 % ExternalIndications :Type 2 diabetes mellitus with hemoglobin A1c goal of less than 7.0% ([facility]) Use to wipe skin prior to placing continuous glucose monitor. 100 Each 3 3 Active Dexcom G7 Environmental Services Attendant Device USE TO READ DEXCOM G7 CGM DIRECTED 1 Each 0 3 11/14/19 24 Active Dexcom G7 Sensor USE TO READ BLOOD GLUCOSE. 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 Dissolve in 4 oz of water. 120 Tablet 11 3 Active Coricidin HBP Cough/Cold 4-30 MG Oral Tablet (Chlorpheniramine-D M) Take 1 Tablet by mouth every 4 hours as needed for Congestion. 24 Tablet 1 3 Active tiZANidine HCl 4 MG Oral Tablet (Zanaflex)Indicatio ns:Episodic tension-type headache, not intractable TAKE 1 TABLET BY MOUTH AT BEDTIME FOR SPASMS 28 Tablet 4 3 Active Docusate Sodium 100 MG Oral Capsule (Colace)Indications :Constipation, unspecified constipation type TAKE ONE CAPSULE BY MOUTH TWO TIMES DAILY *CONSTIPATION* 56 Capsule 4 3 Active metFORMIN HCl 1000 MG Oral Tablet (Glucophage)Indicat ions:Type 2 diabetes mellitus with hemoglobin A1c goal of less than 7.0% ([facility]) TAKE 1 TABLET BY MOUTH TWICE DAILY IN THE MORNING AND EVENING FOR DM 56 Tablet 10 3 Active Trulicity 4.5 MG/0.5ML Subcutaneous Solution Pen-injector (Dulaglutide)Indica tions:Type 2 diabetes mellitus with hemoglobin A1c goal of less than 7.0% ([facility]) Inject 4.5 mg under the skin once a week. 2 mL 12 3 Active Acidophilus Oral Capsule Take 2 Capsules by mouth in the morning. Take 2 Capsules by mouth daily.. 60 Capsule 5 4 Active Ondansetron 4 MG Oral Tablet Disintegrating (Zofran) Place 1 Tablet on tongue every 8 hours as needed for Nausea. dissolve on tongue. 30 Tablet 1 4 Active Lisinopril 5 MG Oral Tablet (Prinivil)Indicatio ns:HTN, goal below 140/90 Take 1 Tablet by mouth in the morning. 90 Tablet 1 4 Active Atorvastatin Calcium 10 MG Oral Tablet (Lipitor)Indication s:Dyslipidemia, goal LDL below 100 Take 1 Tablet by mouth in the morning. 90 Tablet 1 4 Active ReadyLance Safety LancetsIndications: Type 2 diabetes mellitus with hemoglobin A1c goal of less than 7.0% ([facility]) TEST BLOOD SUGAR FOUR TIMES DAILY FOR DM. DX: E11.9 400 Each 3 4 Active Linzess 290 MCG Oral Capsule (linaCLOtide) Take 1 Capsule by mouth daily before breakfast. 90 Capsule 1 4 Active Abilify Asimtufii 960 MG/3.2ML Intramuscular Prefilled Syringe 0 3 Active Accu-Chek Guide In Vitro Strip (Glucose Blood)Indications:T ype 2 diabetes mellitus with hemoglobin A1c goal of less than 7.0% ([facility]) TEST BLOOD SUGAR FOUR TIMES DAILY FOR DM. DX: E11.9 400 Strip 3 4 Active Haloperidol 5 MG Oral Tablet (Haldol) 0 4 Active Gabapentin 300 MG Oral Capsule (Neurontin)Indicati ons:Episodic tension-type headache, not intractable,Bilater al occipital neuralgia Take 1 Capsule by mouth at bedtime. 30 Capsule 5 4 Active Pantoprazole Sodium 40 MG Oral Tablet Delayed Release (Protonix)Indicatio ns:Gastroesophageal reflux disease with esophagitis without hemorrhage TAKE ONE TABLET BY MOUTH ONCE DAILY FOR GERD 28 Tablet 5 4 Active SUMAtriptan Succinate 100 MG Oral TabletIndications:M igraine without aura and without status migrainosus, not intractable Take 1 Tablet by mouth as needed for Migraine. May repeat x 1 after 2 hours in case of refractory migraine; no more than 2 pills without 48 hour time period 9 Tablet 5 4 Active Insulin Lispro (1 Unit Dial) 100 UNIT/ML Subcutaneous Solution Pen-injector (HumaLOG KwikPen)Indications :Type 2 diabetes mellitus with hemoglobin A1c goal of less than 7.0% (HCC) Inject 4 Units under the skin 2 times a day with morning and evening meals. Or as directed 15 mL 3 4 Active Insulin Glargine Solostar 100 UNIT/ML Subcutaneous Solution Pen-injector (Lantus SoloStar)Indication s:Type 2 diabetes mellitus with hemoglobin A1c goal of less than 7.0% (HCC) Inject 50 Units under the skin at bedtime. 45 mL 3 4 Active Insulin Lispro (1 Unit Dial) 100 UNIT/ML Subcutaneous Solution Pen-injector (HumaLOG KwikPen)Indications :Type 2 diabetes mellitus with hemoglobin A1c goal of less than 7.0% (HCC) Inject 3 Units under the skin 2 times a day with morning and evening meals. Or as directed 15 mL 3 3 09/27/19 24 Discontinued Insulin Glargine Solostar 100 UNIT/ML Subcutaneous Solution Pen-injector (Lantus SoloStar)Indication s:Type 2 diabetes mellitus with hemoglobin A1c goal of less than 7.0% (HCC) Inject 42 Units under the skin at bedtime. 45 mL 3 3 09/27/19 24 Discontinued documented as of this encounter (statuses as of 09/27/2023) Active Problems Problem Noted Date Diagnosed Date Gastroparesis 05/08/2023 Type 2 diabetes mellitus with [...] mRNA, LNP-s, No Pre serve, 2-Dose Series ([place]) 05/10/2021,09/09/2020,08/20/2020 Hepatitis B, 20+ yrs 12/10/2014,04/10/2014,10/07 PPD [...] Tobacco: Never Smokeless Tobacco: Current Snuff, Chew Comments:No passive smoke ex posure Alcohol Use Standard Drinks/Week Comments Not Currently [...] on file documented as of this encounter Progress Notes * Zelalem Machado, [facility] - 09/27/2023 8:11 AM EDT Images from the original note were not included. Medication Therapy [facility] - Diabetes Management Progress Note Wilner Castellanos Yazmin Kaplan, identified by name and date of , is a 53 year old male being seen for diabetes management/education. Patient presents for return diabetic visit. DIABETES: Current diabetic medications: INCREASE: Trulicity 4.5 mg weekly Metformin 1000 mg 1 tablet in AM and 1 tablet in evening INCREASE: Lantus 42 units at bedtime Lispro 3 units with AM meal, 3 units with evening meal Medication Injection Site: Abdomen Lifestyle: Diet: unchanged Stress: increased with some mental health issues History of Treatment Barriers: Lifestyle: None Therapy considerations: None Medication: None Glucose Review/SMBG: Readings obtained from patient device Hypoglycemia: Does your blood sugar go below 70 mg/dL? No Hyperglycemia symptoms present: polyurea, polydipsia Recent Labs Units 07/20/23 0758 07/11/23 1217 03/28/23 0752 HEMOGLOBIN A1C - [facility] % 7.3* -- 6.5* HEMOGLOBIN A1C POCT - [facility] % -- 8.0* -- Recent Labs Units 07/20/23 0758 05/01/23 0000 11/02/22 0823 ESTIMATED GLOMERULAR FILTRATION RATE - [facility] mL/min >90 -- >90 EGFR-OUTSIDE LAB ML/MIN/1.73M2 -- 89.9 -- CREATININE - [facility] mg/dL 0.9 -- 0.9 CREATININE-OUTSIDE LAB MG/DL -- 0.96 -- Lab Results Component Value Date/Time CREATININE - [facility] 0.9 07/20/2023 07:58 AM CREATININE - [facility] 0.9 11/02/2022 08:23 AM CREATININE - [facility] 0.8 05/11/2022 11:57 AM CREATININE - [facility] 1.0 05/27/2020 10:30 AM CREATININE - [facility] 1.0 04/27/2020 12:31 PM CREATININE - [facility] 0.8 01/08/2020 08:54 AM CREATININE, RANDOM URINE - [facility] 30 11/02/2022 08:26 AM CREATININE, RANDOM URINE - [facility] 30 11/02/2022 08:26 AM CREATININE, RANDOM URINE - [facility] 137 08/24/2021 08:51 AM CREATININE, RANDOM URINE - [facility] 145 01/15/2018 04:09 PM CREATININE, RANDOM URINE - [facility] 291 12/20/2016 07:59 AM CREATININE, RANDOM URINE - [facility] 113 09/22/2015 09:24 AM CREATININE-OUTSIDE LAB 0.96 05/01/2023 12:00 AM CREATININE-OUTSIDE LAB 0.85 11/11/2020 12:00 AM CREATININE-OUTSIDE LAB 0.87 04/30/2017 12:00 AM HYPERTENSION: Patient on ACEi/ARB: yes, Lisinopril 5mg sagrario BP Readings from Last 3 Encounters: 09/07/23 108/71 08/01/23 104/62 07/24/23 132/88 Blood pressure at goal: yes HYPERLIPIDEMIA: Patient is taking moderate or high intensity statin: yes, Atorvastatin 10mg daily HEALTH MAINTENANCE REVIEW: Health Maintenance Due Topic Date Due Zoster Vaccines (1 of 2) Never done Depression Screening 01/21/2021 COVID-19 Vaccine ( season) 2023 Diabetic Eye Exam 08/21/2023 Diabetic Foot Exam 09/23/2023 Albumin/Creatinine Ratio 11/03/2023 ASSESSMENT & PLAN: ICD-10-CM 1. Type 2 diabetes mellitus with hemoglobin A1c goal of less than 7.0% (HCC) E11.9 BG Readings - Blood sugars uncontrolled. Worse since last visit. Medications - Reviewed current regimen, patient is adherent to regimen. Increasing basal and bolus doses Diet, Exercise, Lifestyle - see above . Discussed with patient today. Patient is agreeable to wear Dexcom CGM. Patient aware to contact clinic if any hypoglycemia before next visit. MEDICATION CHANGES: yes, see below; preferred pharmacy: [facility] Diabetic Medications: Trulicity 4.5 mg weekly Metformin 1000 mg 1 tablet in AM and 1 tablet in evening INCREASE: Lantus 50 units at bedtime INCREASE: Lispro 4 units with AM meal, 4 units with evening meal HEALTH MAINTENANCE INTERVENTIONS: Labs: Ordered & Scheduled: Urine Microalbumin Immunizations: needs shingles Foot Exam: Complete with next PCP visit on today Eye Exam: Complete with next PCP visit on today Annual Wellness Visit: N/A FOLLOW UP: Return to clinic in 6 weeks 11/09/2023 Zelalem Potts RPh, MRAINOE Clinical Pharmacist - Outfitter [facility] 09/27/2023, 8:12 AM documented in this encounter Plan of Treatment Upcoming Encounters Date Type Department Care Team (Latest Contact Info) Description 09/27/2023 9:20 AM EDT Office Visit [facility] R[facility] Mann [address] [place] [address] Gloria Skaggs DO [address] [place] [id number] Arrived 10/01/2023 10:20 AM EDT Office Visit [facility] Rene Mann [address] [place] [address] Tatianna Jean PA-C [address] [place] [address] 10/16/2023 1:00 PM EDT [facility] Visit [facility] [place] [address] [place] [phone] Halley Kilpatrick CRNP [address] [place] [address] 10/22/2023 9:00 AM EDT Hospital Encounter [facility], Endoscopy Room [facility] [address] [facility] [place] [phone] Kary Keene MD [address] [place] [address] 10/22/2023 9:00 AM EDT - 10/22/2023 10:00 AM EDT Surgery ENDO [facility], Endoscopy Room [facility] [address] [facility] [facility] [place] [phone] Kary Keene MD [address] [place] [address] ESOPHAGOGASTRODUODENOSCOPY (EGD), FLEXIBLE, TRANSORAL, ENDOSCOPIC ULTRASOUND 11/09/2023 8:30 AM EDT Office Visit Pharmacy, [facility] [place] [address] [facility] [place] [address] Pharmacist1, [facility] [address] [place] [address] 01/31/2024 1:40 PM EDT Office Visit Neurology [facility] [place] [address] [facility] [place] [id number] [facility] [address] [facility] [address] Scheduled Procedures Name Priority Associated Diagnoses Date/Ti [...] 08/21/2023 08/21/2022, , 07/07/2020, Additional history exists Diabetic Foot Exam 09/23/2023 09/22/2022, 0 09/21/2021, 06/08/2020, Additional history exists Albumin/Creatinine Ratio 11/03/2023 023, 08/24/2021, 10/18/2020, Additional history exists HbA1c 01/18/2024 07/20/2023, 06/16, 03/28/2023, Additional history exists B-12 05/08/2024 05/08/2023, 12/15, 01/08/2020, Additional history exists GFR 07/20/2024 07/20/2023, 04/15, 11/02/2022, Additional history exists Lipid Panel 07/20/2028 07/20/2023, [...] Diagnoses Diagnosis Type 2 diabetes mellitus with hemoglobin A1c goal of less than 7.0% ([facility])- Primary Elevated LFTs Other abnormal blood chemistry documented in this encounter Care Teams Computerized Machine Fabric Cutter Relationship Specialty Start Date End Date Gloria Skaggs DO [address] [place] [address] PCP - General Family Medicine 07/04/19 documented as of this encounter
--- OUTSIDE RECORDS SUMMARY | 2023-10-14 13:08 | External Medical Summary | Summary of Care ---
Author Name Unknown Organization [facility] Address [address] [place] [address] Phone [phone] Care Team Providers Care Slat Basket Maker Name Role Phone Paulie Skaggs DO Primary Care Provider Reason for Visit * Reason Onset Date Comments Advice 10/02/2023 FYI 10/02/2023 Encounter Details Date Type Department Care Team (Late st Contact Info) Description 10/02/2023 Telephone Family Practice [facility] [address] [place] [address] Paulie Skaggs DO [address] [facility] [place] [address] Advice; Allergies Active Allergy Reactions Criticality Noted Date Comments Chlorpromazine 05/09/2016 aggitation Cyclobenzaprine Low 12/17/2020 Other reaction(s): RASH Valproic Acid 05/09/2016 "unable to function" Ziprasidone Hydrochloride 02/23/2010 Tramadol Low 12/17/2020 Other reaction(s): RASH Ziprasidone High 12/17/2020 Other reaction(s): FACIAL SWELLING; RASH documented as of this encounter (statuses as of 10/04/2023) Medications Medication Sig Dispensed Refills Start Date End Date Status hydrOXYzine HCl 50 MG Tablet Take 2.5 Tablets by mouth at bedtime. 0 08/29/2018 Active lamoTRIgine (LAMICTAL) 100 MG Tablet 2 times a day. 0 09/04/2019 Active Benztropine Mesylate 2 MG Oral Tablet (Cogentin) Take 1 Tablet by mouth at bedtime. 0 05/30/2021 Active hydrOXYzine HCl 25 MG Oral Tablet Take 1 Tablet by mouth in the morning. 0 Active Prazosin HCl 2 MG Oral Capsule (Minipress) Take 3 Capsules by mouth at bedtime. 0 Active Accu-Chek FastClix Lancet KitIndications:Type 2 diabetes mellitus with hemoglobin A1c goal of less than 7.0% (HCC) Use twice daily E11.9 insulin dependent 1 Kit 0 02/23/2022 Active Prazosin HCl 2 MG Oral Capsule (Minipress) Take 2 Capsules by mouth in the morning. 0 Active Accu-Chek Guide Me w/Device KitIndications:Type 2 diabetes mellitus with hemoglobin A1c goal of less than 7.0% (HCC) Use twice daily to check blood sugar. 1 Kit 1 07/24/2022 Active Dexcom G7 SensorIndications:T ype 2 diabetes mellitus with hemoglobin A1c goal of less than 7.0% (HCC) Use to read blood glucose. Change every 10 days. 9 Each 3 11/14/2022 Active Dexcom G7 Excellence Manager DeviceIndications:T ype 2 diabetes mellitus with hemoglobin A1c goal of less than 7.0% (HCC) Use to read Dexcom G7 CGM as directed. 1 Each 0 11/14/2022 Active Polyethylene Glycol 3350 17 GM/SCOOP Oral Powder (Miralax)Indication s:HTN, goal below 140/90 Take 17 g by mouth in the morning and 17 g before bedtime. Mix 17 grams (1 capful) in 8 oz of water twice daily. May use 2 capfuls twice daily for severe constipation. Maximum of 4 capfuls daily.. 850 g 11 12/14/2022 Active Alcohol Wipes 70 % ExternalIndications :Type 2 diabetes mellitus with hemoglobin A1c goal of less than 7.0% (HCC) Use to wipe skin prior to placing continuous glucose monitor. 100 Each 3 01/11/2023 Active Dexcom G7 Excellence Manager Device USE TO READ DEXCOM G7 CGM DIRECTED 1 Each 0 11/14/2022 4 Active Dexcom G7 Sensor USE TO READ BLOOD GLUCOSE. 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 Dissolve in 4 oz of water. 120 Tablet 11 05/08/2023 Active Coricidin HBP Cough/Cold 4-30 MG Oral Tablet (Chlorpheniramine-D M) Take 1 Tablet by mouth every 4 hours as needed for Congestion. 24 Tablet 1 05/16/2023 Active tiZANidine HCl 4 MG Oral Tablet (Zanaflex)Indicatio ns:Episodic tension-type headache, not intractable TAKE 1 TABLET BY MOUTH AT BEDTIME FOR SPASMS 28 Tablet 4 05/21/2023 Active Docusate Sodium 100 MG Oral Capsule (Colace)Indications :Constipation, unspecified constipation type TAKE ONE CAPSULE BY MOUTH TWO TIMES DAILY *CONSTIPATION* 56 Capsule 4 07/11/2023 Active metFORMIN HCl 1000 MG Oral Tablet (Glucophage)Indicat ions:Type 2 diabetes mellitus with hemoglobin A1c goal of less than 7.0% (HCC) TAKE 1 TABLET BY MOUTH TWICE DAILY IN THE MORNING AND EVENING FOR DM 56 Tablet 10 07/11/2023 Active Trulicity 4.5 MG/0.5ML Subcutaneous Solution Pen-injector (Dulaglutide)Indica tions:Type 2 diabetes mellitus with hemoglobin A1c goal of less than 7.0% (HCC) Inject 4.5 mg under the skin once a week. 2 mL 12 07/11/2023 Active Acidophilus Oral Capsule Take 2 Capsules by mouth in the morning. Take 2 Capsules by mouth daily.. 60 Capsule 5 07/20/2023 Active Ondansetron 4 MG Oral Tablet Disintegrating (Zofran) Place 1 Tablet on tongue every 8 hours as needed for Nausea. dissolve on tongue. 30 Tablet 1 07/20/2023 Active Atorvastatin Calcium 10 MG Oral Tablet (Lipitor)Indication s:Dyslipidemia, goal LDL below 100 Take 1 Tablet by mouth in the morning. 90 Tablet 1 07/20/2023 Active ReadyLance Safety LancetsIndications: Type 2 diabetes mellitus with hemoglobin A1c goal of less than 7.0% (HCC) TEST BLOOD SUGAR FOUR TIMES DAILY FOR DM. DX: E11.9 400 Each 3 07/18/2023 Active Linzess 290 MCG Oral Capsule (linaCLOtide) Take 1 Capsule by mouth daily before breakfast. 90 Capsule 1 07/19/2023 Active Abilify Asimtufii 960 MG/3.2ML Intramuscular Prefilled Syringe 0 07/06/2023 Active Accu-Chek Guide In Vitro Strip (Glucose Blood)Indications:T ype 2 diabetes mellitus with hemoglobin A1c goal of less than 7.0% (HCC) TEST BLOOD SUGAR FOUR TIMES DAILY FOR DM. DX: E11.9 400 Strip 3 07/31/2023 Active Haloperidol 5 MG Oral Tablet (Haldol) 0 07/26/2023 Active Pantoprazole Sodium 40 MG Oral Tablet Delayed Release (Protonix)Indicatio ns:Gastroesophageal reflux disease with esophagitis without hemorrhage TAKE ONE TABLET BY MOUTH ONCE DAILY FOR GERD 28 Tablet 5 08/10/2023 Active SUMAtriptan Succinate 100 MG Oral TabletIndications:M igraine without aura and without status migrainosus, not intractable Take 1 Tablet by mouth as needed for Migraine. May repeat x 1 after 2 hours in case of refractory migraine; no more than 2 pills without 48 hour time period 9 Tablet 5 08/20/2023 Active Insulin Lispro (1 Unit Dial) 100 UNIT/ML Subcutaneous Solution Pen-injector (HumaLOG KwikPen)Indications :Type 2 diabetes mellitus with hemoglobin A1c goal of less than 7.0% (HCC) Inject 4 Units under the skin 2 times a day with morning and evening meals. Or as directed 15 mL 09/27/2023 Active Insulin Glargine Solostar 100 UNIT/ML Subcutaneous Solution Pen-injector (Lantus SoloStar)Indication s:Type 2 diabetes mellitus with hemoglobin A1c goal of less than 7.0% (HCC) Inject 50 Units under the skin at bedtime. 45 mL 3 09/27/2023 Active Lisinopril 2.5 MG Oral Tablet (Prinivil) Take 1 Tablet by mouth in the morning. 30 Tablet 11 09/27/2023 Active BD Pen Needle Chandrika U/F 32G X 4 MM (Insulin Pen Needle)Indications: Type 2 diabetes mellitus with hemoglobin A1c goal of less than 7.0% (HCC) Use with Lantus and Novolog pen 3 times daily DxE11.9 300 Each 3 10/02/2023 Active Gabapentin 300 MG Oral Capsule (Neurontin)Indicati ons:Bilateral occipital neuralgia,Episodic tension-type headache, not intractable Take 1 Capsule by mouth in the morning and 1 Capsule at noon and 1 Capsule before bedtime. 90 Capsule 11 10/04/2023 Active Gabapentin 300 MG Oral Capsule (Neurontin)Indicati ons:Bilateral occipital neuralgia,Episodic tension-type headache, not intractable Take 1 Capsule by mouth in the morning and 1 Capsule at noon and 1 Capsule before bedtime. 90 Capsule 11 09/27/2023 4 Discontinue d(Refill) documented as of this encounter (statuses as of 10/04/2023) Active Problems Problem Noted Date Diagnosed Date [...] as of this encounter (statuses as of 10/04/2023) Resolved Problems Problem Noted Date Diagnosed Date [...] as of this encounter (statuses as of 10/04/2023) Immunizations Name Administration Dates Next Due COVID-19 mRNA, LNP-s, No Pre serve, 2-Dose Series ([employer]) 05/10/2021,09/09/2020,08/20/2020 Hepatitis B, 20+ yrs 12/10/2014,04/10/2014,10/07 PPD [...] on file documented as of this encounter Miscellaneous Notes * Addendum Note - Paulie Skaggs DO - 10/04/2023 9:18 AM EDTAddended by: PAULIE SKAGGS on: 10/04/2023 09:18 AM Modules accepted: Orders * Telephone Encounter - Paulie Skaggs DO - 10/04/2023 9:15 AM EDT Gabapentin 300 MG Oral Capsule (Neurontin) 90 Capsule 11 09/27/2023 -- Sig - Route: Take 1 Capsule by mouth in the morning and 1 Capsule at noon and 1 Capsule before bedtime. - Oral Sent to pharmacy as: Gabapentin 300 MG Oral Capsule (Neurontin) Class: ePrescribing Order: [id number] Date/Time Signed: 09/27/2023 09:49 E-Prescribing Status: Receipt confirmed by pharmacy (09/27/2023 9:51 AM EDT) Associated Diagnoses Bilateral occipital neuralgia [M54.81] Episodic tension-type headache, not intractable [G44.219] Order Providers Prescribing Provider ([id number]) Paulie Skaggs DO Pharmacy [facility] [address] It was sent to Jorge in [place] 09/26, and we have receipt of confirmation. I will send through again. * Telephone Encounter - William Crys JOSIAH Gonzalez - 10/03/2023 11:42 AM EDT Pending Prescriptions: Disp Refills Gabapentin 300 MG Oral Capsule (Neurontin)90 Cap*11 Sig: Take 1 Capsule by mouth in the morning and 1 Capsule at noon and 1 Capsule before bedtime. 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 Dental caries K02.9 Snoring R06.83 Smokeless tobacco use Z72.0 Type 2 diabetes mellitus with hemoglobin A1c goal of less than 7.0% ([facility]) E11.9 NAFLD (nonalcoholic fatty liver disease) K76.0 Dyslipidemia, goal LDL below 100 E78.5 Factor V Leiden mutation ([facility]) D68.51 Schizoaffective disorder ([facility]) F25.9 Essential hypertension with goal blood pressure less than 140/90 I10 Bipolar disorder, in partial remission, most recent episode depressed ([facility]) F31.75 Schizoaffective disorder, bipolar type ([facility]) F25.0 Generalized anxiety disorder F41.1 Major depressive disorder, single episode, unspecified F32.9 Post-traumatic stress disorder, chronic F43.12 Chronic constipation K59.09 Bilateral occipital neuralgia M54.81 Type 2 diabetes mellitus with diabetic polyneuropathy ([facility]) E11.42 Gastroparesis K31.84 Type 2 diabetes mellitus with diabetic polyneuropathy, with long-term current use of insulin ([facility]) E11.42, Z79.4 Labs: Lab Results Component Value Date/Time CREATININE - [facility] 0.9 07/20/2023 07:58 AM CREATININE - [facility] 1.0 05/27/2020 10:30 AM CREATININE, RANDOM URINE - [facility] 30 11/02/2022 08:26 AM CREATININE, RANDOM URINE - [facility] 30 11/02/2022 08:26 AM CREATININE, RANDOM URINE - [facility] 145 01/15/2018 04:09 PM CREATININE-OUTSIDE LAB 0.96 05/01/2023 12:00 AM Lab Results Component Value Date/Time POTASSIUM - [facility] 4.4 07/20/2023 07:58 AM POTASSIUM - [facility] 4.2 05/27/2020 10:30 AM POTASSIUM-OUTSIDE LAB 4.0 05/01/2023 12:00 AM Lab Results Component Value Date/Time TSH - [facility] 2.25 07/20/2023 07:58 AM TSH - [facility] 1.98 05/27/2020 10:30 AM Lab Results Component Value Date/Time LDL CHOLESTEROL (CALCULATED) - [facility] 19 07/20/2023 07:58 AM LDL CHOLESTEROL (CALCULATED) - [facility] 40 03/28/2023 07:52 AM LDL CHOLESTEROL (CALCULATED) - [facility] 33 01/08/2020 08:54 AM LDL CHOLESTEROL (CALCULATED) - [facility] 5 09/25/2018 09:02 AM LDL CHOLESTEROL (DIRECT MEASURE) - [facility] NOT APPLICABLE 01/08/2020 08:54 AM LDL CHOLESTEROL (DIRECT MEASURE) - [facility] NOT APPLICABLE 02/13/2018 09:08 AM Lab Results Component Value Date/Time ALT - [facility] 45 09/18/2023 08:11 AM ALT - [facility] 49 05/27/2020 10:30 AM ALT-OUTSIDE LAB 50 04/30/2017 12:00 AM Hemoglobin AIC Results: Lab Results Component Value Date/Time HEMOGLOBIN A1C - [facility] 7.3 (H) 07/20/2023 07:58 AM HEMOGLOBIN A1C - [facility] 6.5 (H) 03/28/2023 07:52 AM HEMOGLOBIN A1C - [facility] 6.6 (H) 11/02/2022 08:23 AM HEMOGLOBIN A1C - [facility] 8.2 (H) 05/27/2020 10:30 AM HEMOGLOBIN A1C - [facility] 8.4 (H) 04/27/2020 12:31 PM HEMOGLOBIN A1C - [facility] 5.3 01/08/2020 08:54 AM HEMOGLOBIN A1C POCT - [facility] 8.0 (H) 07/11/2023 12:17 PM HEMOGLOBIN A1C POCT - [facility] 5.0 02/01/2023 08:00 AM HEMOGLOBIN A1C POCT - [facility] 6.5 (H) 2022 09:58 AM * Telephone Encounter - Marilu Gan OSA - 10/02/2023 12:42 PM EDT Rik Saeed says they called the pharmacy get script for gabapentin 300 mg ( 3 times daily) but the pharmacy says they did not receive it yet. documented in this encounter Plan of Treatment Upcoming Encounters Date Type Department Care Team (Latest Contact Info) Description 10/16/2023 1:00 PM EDT Office Visit Sleep Disorders Ctr [facility] [address] [place] [phone] Halley Kilpatrick CRNP [address] [place] [address] 10/22/2023 9:00 AM EDT Hospital Encounter ENDO [facility], Endoscopy Room [facility] [address] [place] [phone] Kary Keene MD [address] [place] [address] 10/22/2023 9:00 AM EDT - 10/22/2023 10:00 AM EDT Surgery ENDO [facility], Endoscopy Room [facility] [address] [place] [phone] Kary Keene MD [address] [place] [address] ESOPHAGOGASTRODUODENOSCOPY (EGD), FLEXIBLE, TRANSORAL, ENDOSCOPIC ULTRASOUND 11/09/2023 8:30 AM EDT Office Visit Pharmacy, [facility] [address] [place], [place] [address] Pharmacist1, [facility] [address] [place], [place] [address] 01/02/2024 12:40 PM EDT Office Visit [facility] [address] [place] [address] Jad Rivero III, MD [address] [place] [address] 01/31/2024 1:40 PM EDT Office Visit Neurology [facility] [place] [address] [place] [address] Ricardo Reza MD [address] [place] [address] 03/21/2024 7:20 AM EDT Office Visit [facility] [place] [address] [place] [address] Paulie Skaggs DO [address] [place] [address] Scheduled Procedures Name Priority Associated Diagnoses Date/Ti [...] as of this encounter Visit Diagnoses Diagnosis Bilateral occipital neuralgia Other syndromes affecting cervical region Episodic tension-type headache, not intractable Episodic tension type headache Elevated LFTs Other abnormal blood chemistry documented in this encounter Care Teams Slat Basket Maker Relationship Specialty Start Date End Date Paulie Skaggs DO [address] [place] [address] PCP - General Family Medicine 07/04/19 documented as of this encounter
--- OUTSIDE RECORDS SUMMARY | 2023-10-14 13:08 | External Medical Summary | Summary of Care ---
Author Name Unknown Organization [facility] Address [address] [place] [address] Phone [phone] Care Team Providers Care Sensor Operator Name Role Phone Gloria Skaggs DO Primary Care Provider Reason for Visit * Reason Onset Date Comments Medication Refill 10/02/2023 Encounter Details Date Type Department Care Team (Late st Contact Info) Description 10/02/2023 Refill Family Practice [facility] [address] [place] [address] Gloria Skaggs DO [address] [facility] [place] [address] Bilateral occipital neuralgia; Episodic tension-type headache, not intractable Allergies Active Allergy Reactions Criticality Noted Date Comments Chlorpromazine 05/09/2016 aggitation Cyclobenzaprine Low 12/17/2020 Other reaction(s): RASH Valproic Acid 05/09/2016 "unable to function" Ziprasidone Hydrochloride 02/23/2010 Tramadol Low 12/17/2020 Other reaction(s): RASH Ziprasidone High 12/17/2020 Other reaction(s): FACIAL SWELLING; RASH documented as of this encounter (statuses as of 10/03/2023) Medications Medication Sig Dispensed Refills Start Date [...] 1 Kit 1 07/24/2022 Active Dexcom G7 SensorIndications:Ty pe 2 diabetes mellitus with hemoglobin A1c goal of less than 7.0% (HCC) Use to read blood glucose. Change every 10 days. 9 Each 3 11/14/2022 Active Dexcom G7 Rotary Drum Tanner DeviceIndications:Ty pe 2 diabetes mellitus with hemoglobin A1c goal of less than 7.0% (HCC) Use to read Dexcom G7 CGM as directed. 1 Each 0 11/14/2022 Active Polyethylene Glycol 3350 17 GM/SCOOP Oral Powder (Miralax)Indications :HTN, goal below 140/90 Take 17 g by mouth in the morning and 17 g before bedtime. Mix 17 grams (1 capful) in 8 oz of water twice daily. May use 2 capfuls twice daily for severe constipation. Maximum of 4 capfuls daily.. 850 g 11 12/14/2022 Active Alcohol Wipes 70 % ExternalIndications: Type 2 diabetes mellitus with hemoglobin A1c goal of less than 7.0% (HCC) Use to wipe skin prior to placing continuous glucose monitor. 100 Each 3 01/11/2023 Active Dexcom G7 Rotary Drum Tanner Device USE TO READ DEXCOM G7 CGM DIRECTED 1 Each 0 11/14/2022 11/14/2023 Active Dexcom G7 Sensor USE TO READ BLOOD GLUCOSE. 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 Dissolve in 4 oz of water. 120 Tablet 11 05/08/2023 Active Coricidin HBP Cough/Cold 4-30 MG Oral Tablet (Chlorpheniramine-DM ) Take 1 Tablet by mouth every 4 hours as needed for Congestion. 24 Tablet 1 05/16/2023 Active tiZANidine HCl 4 MG Oral Tablet (Zanaflex)Indication s:Episodic tension-type headache, not intractable TAKE 1 TABLET BY MOUTH AT BEDTIME FOR SPASMS 28 Tablet 4 05/21/2023 Active Docusate Sodium 100 MG Oral Capsule (Colace)Indications: Constipation, unspecified constipation type TAKE ONE CAPSULE BY MOUTH TWO TIMES DAILY *CONSTIPATION* 56 Capsule 4 07/11/2023 Active metFORMIN HCl 1000 MG Oral Tablet (Glucophage)Indicati ons:Type 2 diabetes mellitus with hemoglobin A1c goal of less than 7.0% (HCC) TAKE 1 TABLET BY MOUTH TWICE DAILY IN THE MORNING AND EVENING FOR DM 56 Tablet 10 07/11/2023 Active Trulicity 4.5 MG/0.5ML Subcutaneous Solution Pen-injector (Dulaglutide)Indicat ions:Type 2 diabetes mellitus with hemoglobin A1c [...] Active Atorvastatin Calcium 10 MG Oral Tablet (Lipitor)Indications :Dyslipidemia, goal LDL below 100 Take 1 Tablet by mouth in the morning. 90 Tablet 1 07/20/2023 Active ReadyLance Safety LancetsIndications:T ype 2 diabetes mellitus with hemoglobin A1c goal of less than 7.0% (HCC) TEST BLOOD SUGAR FOUR TIMES DAILY FOR DM. DX: E11.9 400 Each 3 07/18/2023 Active Linzess 290 MCG Oral Capsule (linaCLOtide) Take 1 Capsule by mouth daily before breakfast. 90 Capsule 1 07/19/2023 Active Abilify Asimtufii 960 MG/3.2ML Intramuscular Prefilled Syringe 0 07/06/2023 Active Accu-Chek Guide In Vitro Strip (Glucose Blood)Indications:Ty pe 2 diabetes mellitus with hemoglobin A1c goal of less than 7.0% (HCC) TEST BLOOD SUGAR FOUR TIMES DAILY FOR DM. DX: E11.9 400 Strip 3 07/31/2023 Active Haloperidol 5 MG Oral Tablet (Haldol) 0 07/26/2023 Acti ve Pantoprazole Sodium 40 MG Oral Tablet Delayed Release (Protonix)Indication s:Gastroesophageal reflux disease with esophagitis without hemorrhage TAKE ONE TABLET BY MOUTH ONCE DAILY FOR GERD 28 Tablet 5 08/10/2023 Active SUMAtriptan Succinate 100 MG Oral TabletIndications:Mi graine without aura and without status migrainosus, not intractable Take 1 Tablet by mouth as needed for Migraine. May repeat x 1 after 2 hours in case of refractory migraine; no more than 2 pills without 48 hour time period 9 Tablet 5 08/20/2023 Active Insulin Lispro (1 Unit Dial) 100 UNIT/ML Subcutaneous Solution Pen-injector (HumaLOG KwikPen)Indications: Type 2 diabetes mellitus with hemoglobin A1c goal of less than 7.0% (HCC) Inject 4 Units under the skin 2 times a day with morning and evening meals. Or as directed 15 mL 3 09/27/2023 Active Insulin Glargine Solostar 100 UNIT/ML Subcutaneous Solution Pen-injector (Lantus SoloStar)Indications :Type 2 diabetes mellitus with hemoglobin A1c goal of less than 7.0% (HCC) Inject 50 Units under the skin at bedtime. 45 mL 3 09/27/2023 Active Lisinopril 2.5 MG Oral Tablet (Prinivil) Take 1 Tablet by mouth in the morning. 30 Tablet 11 09/27/2023 Active Gabapentin 300 MG Oral Capsule (Neurontin)Indicatio ns:Bilateral occipital neuralgia,Episodic tension-type headache, not intractable Take 1 Capsule by mouth in the morning and 1 Capsule at noon and 1 Capsule before bedtime. 90 Capsule 11 09/27/2023 Active BD Pen Needle Chandrika U/F 32G X 4 MM (Insulin Pen Needle)Indications:T ype 2 diabetes mellitus with hemoglobin A1c goal of less than 7.0% ([facility]) Use with Lantus and Novolog pen 3 times daily DxE11.9 300 Each 3 10/02/2023 Active documented as of this encounter (statuses as of 10/03/2023) Active Problems Problem Noted Date Diagnosed Date [...] as of this encounter (statuses as of 10/03/2023) Resolved Problems Problem Noted Date Diagnosed Date [...] as of this encounter (statuses as of 10/03/2023) Immunizations Name Administration Dates Next Due COVID-19 mRNA, LNP-s, No Pre serve, 2-Dose Series ([employer]) 05/10/2021,09/09/2020,08/20/2020 Hepatitis B, 20+ yrs 12/10/2014,04/10/2014,10/07 PPD [...] as of this encounter Miscellaneous Notes * Telephone Encounter - Gurinder Jimenez RP - 10/03/2023 11:58 AM EDT Refused Prescriptions: Disp Refills Gabapentin 300 MG Oral Capsule (Neurontin) 90 Cap*11 Sig: Take 1 Capsule by mouth in the morning and 1 Capsule at noon and 1 Capsule before bedtime.Refused By: GURINDER JIMENEZ for Refusal: Duplicate Request * Telephone Encounter - Gurinder Jimenez RPh - 10/03/2023 11:50 AM EDT Spoke with pharmacy. They did receive the new script for gabapentin. I also clarified the directions. Thank You, Gurinder Jimenez, Pharm-D Clinical Pharmacist [facility] ([facility]) [phone] 10/03/2023, 11:57 AM documented in this encounter Plan of Treatment Upcoming Encounters Date Type Department Care Team (Latest Contact Info) Description 10/16/2023 1:00 PM EDT Office Visit Sleep Disorders Ctr [address] [place] [phone] Halley Kilpatrick CRNP [address] [place], [place] [address] 10/22/2023 9:00 AM EDT Hospital Encounter ENDO [facility], Endoscopy Room [facility] [place] [phone] Kary Keene MD [address] [place] [address] 10/22/2023 9:00 AM EDT - 10/22/2023 10:00 AM EDT Surgery ENDO [facility], Endoscopy Room [facility] [place] [phone] K[facility] Keene MD [address] [facility] [place] [address] ESOPHAGOGASTRODUODENOSCOPY (EGD), FLEXIBLE, TRANSORAL, ENDOSCOPIC ULTRASOUND 11/09/2023 8:30 AM EDT Office Visit Pharmacy, [facility] [address] [facility] [place] [address] Pharmacist1, [facility] [address] [facility] [place] [address] 01/02/2024 12:40 PM EDT Office Visit [facility] [address] [place] [address] Jad Rivero III, MD [address] [facility] [place] [address] 01/31/2024 1:40 PM EDT Office Visit Neurology [facility] [address] [place] [address] Ricardo Reza MD [address] [place] [address] 03/21/2024 7:20 AM EDT Office Visit [facility] [address] [place] [address] Gloria Skaggs, [address] [place] [address] Scheduled Procedures Name Priority Associated Diagnoses Date/Ti [...] chemistry documented in this encounter Care Teams Sensor Operator Relationship Specialty Start Date End Date Gloria Skaggs DO [address] [place] [address] PCP - General Family Medicine 07/04/19 documented as of this encounter
--- OUTSIDE RECORDS SUMMARY | 2023-10-14 13:08 | External Medical Summary | Summary of Care ---
Author Name Unknown Organization [facility] Address [address] [place] [address] Phone [phone] Care Team Providers Care Fishing Accessories Maker Name Role Phone Gloria Skaggs DO Primary Care Provider Reason for Visit * Reason Comments Nurse Documentation fibroscan Encounter Details Date Type Department Care Team (Late st Contact Info) Description 09/07/2023 1:30 PM EST Nurse Only Gastroenterology, Magda Weathers [address] [place] [phone] [address] [place] [phone] Nurse Documentation (fibroscan) Allergies Active Allergy Reactions Criticality Noted Date Comments Chlorpromazine 05/09/2016 aggitation Cyclobenzaprine Low 12/17/2020 Other reaction(s): RASH Valproic Acid 05/09/2016 "unable to function" Ziprasidone Hydrochloride 02/23/2010 Tramadol Low 12/17/2020 Other reaction(s): RASH Ziprasidone High 12/17/2020 Other reaction(s): FACIAL SWELLING; RASH documented as of this encounter (statuses as of 09/28/2023) Medications Medication Sig Dispensed Refills Start Date [...] 9 Each 3 3 Active Dexcom G7 Curtain Fitter DeviceIndications: Type 2 diabetes mellitus with hemoglobin [...] 11 3 Active Alcohol Wipes 70 % ExternalIndication s:Type 2 diabetes mellitus with hemoglobin A1c goal of less than 7.0% ([facility]) Use to wipe skin prior to placing continuous glucose monitor. 100 Each 3 3 Active Dexcom G7 Curtain Fitter Device USE TO READ DEXCOM G7 CGM DIRECTED 1 Each 0 3 11/14/19 24 Active Dexcom G7 Sensor USE TO READ BLOOD GLUCOSE. CHANGE EVERY 10 DAYS 9 Each 3 3 11/14/19 24 Active Nortriptyline HCl 25 MG Oral Capsule (Pamelor)Indicatio ns:Common transformed migraine without aura TAKE 1 CAPSULE BY MOUTH DAILY AT BEDTIME FOR MOOD DISORDER 90 Capsule 5 3 Active Famotidine 40 MG Oral Tablet (Pepcid) TAKE ONE TAB BY MOUTH AT BEDTIME *GERD* 28 Tablet 10 3 Active Sucralfate 1 GM Oral Tablet (Carafate)Indicati ons:Abdominal pain, epigastric Take 1 Tablet by mouth 4 times a day before meals and at bedtime. Dissolve in 4 oz of water. 120 Tablet 11 3 Active Coricidin HBP Cough/Cold 4-30 MG Oral Tablet (Chlorpheniramine- DM) Take 1 Tablet by mouth every 4 hours as needed for Congestion. 24 Tablet 1 3 Active tiZANidine HCl 4 MG Oral Tablet (Zanaflex)Indicati ons:Episodic tension-type headache, not intractable TAKE 1 TABLET BY MOUTH AT BEDTIME FOR SPASMS 28 Tablet 4 3 Active Docusate Sodium 100 MG Oral Capsule (Colace)Indication s:Constipation, unspecified constipation type TAKE ONE CAPSULE BY MOUTH TWO TIMES DAILY *CONSTIPATION* 56 Capsule 4 3 Active metFORMIN HCl 1000 MG Oral Tablet (Glucophage)Indica tions:Type 2 diabetes mellitus with hemoglobin A1c goal of less than 7.0% ([facility]) TAKE 1 TABLET BY MOUTH TWICE DAILY IN THE MORNING AND EVENING FOR DM 56 Tablet 10 3 Active Trulicity 4.5 MG/0.5ML Subcutaneous Solution Pen-injector (Dulaglutide)Indic ations:Type 2 diabetes mellitus with hemoglobin A1c goal of less than 7.0% ([facility]) Inject 4.5 mg under the skin once [...] hemoglobin A1c goal of less than 7.0% ([facility]) Inject 42 Units under the skin at bedtime. 45 mL 3 3 09/27/19 24 Discontinued Lisinopril 5 MG Oral Tablet (Prinivil)Indicati ons:HTN, goal below 140/90 Take 1 Tablet by mouth in the morning. 90 Tablet 1 4 09/27/19 24 Discontinued Gabapentin 300 MG Oral Capsule (Neurontin)Indicat ions:Episodic tension-type headache, not intractable,Bilate ral occipital neuralgia Take 1 Capsule by mouth at bedtime. 30 Capsule 5 4 09/27/19 24 Discontinued(Re fill) documented as of this encounter (statuses as of 09/28/2023) Active Problems Problem Noted Date Diagnosed Date [...] disorder Overview: Psychiatry: Carol De Counselor: Hector Gan [place] documented as of this encounter (statuses as of 09/28/2023) Resolved Problems Problem Noted Date Diagnosed Date [...] as of this encounter (statuses as of 09/28/2023) Immunizations Name Administration Dates Next Due COVID-19 mRNA, LNP-s, No Pre serve, 2-Dose Series ([employer]) 05/10/2021,09/09/2020,08/20/2020 Hepatitis B, 20+ yrs 12/10/2014,04/10/2014,10/07 PPD [...] Sign Reading Time Taken Comments Blood Pressure 108/71 09/07/2023 1:06 PM EST Pulse 109 09/07/2023 1:06 PM EST Temperature 36.4 C (97.5 F) 09/07/2023 1:06 PM ES T Respiratory Rate - - Oxygen Saturation - - Inhaled Oxygen Concentration - - Weight 110.2 kg (243 lb) 09/07/2023 1:06 PM EST Height - - Body Mass Index 33.89 07/24/2023 1:35 PM EST documented in this encounter Progress Notes * Claudia Otoole RN - 09/07/2023 2:02 PM [facility]Vibration Controlled Transient Elastography (VCTE) Procedure Report Date: 09/07/2023 Patient: Wilner Arce Jr. Referring Provider: Gloria Skaggs DO Interpreting Provider: Ledy Galan DO Indication: fatty liver NPO 3-Hours: yes Probe: M Procedure: After providing oral explanation of the procedure to the patient, patient was placed in a supine position with right arm extended over the head to allow optimal exposure of the right lateral abdomen. Ultrasound location was identified by locating the terminus of the xiphoid process and finding intercostal spacing located midline and lateral to this point. 50 Hz Shear Wave pulses were applied and the resulting Shear Wave and Propagation Speed detected with 3.5 MHz ultrasonic signal, using the FibroScan probe. Skin to liver capsule distance and liver parenchyma were accessed during the entire examination using the FibroScan probe. Eleven Shear wave impulses were produced; individual measurements of each Shear Wave were calculated. Patient tolerated procedure well. Findings: Results for orders placed or performed in visit on 09/07/23 LIVER ELASTOGRAPHY W/O IMAGING Result Value Ref Range Median Shear Wave Speed 1.88 meters/second Median Liver Stiffness 10.6 kilopascal (kPa) IQR/med 5 Range < 30% Fibrosis Staging CAP SCORE 346 dB/m The Interquartile Range to Median ration (IQR/med) for all measurements was 5% , indicating a good quality study was performed. (Acceptable range of IQR/med less than 30%) Interpretation: Table 1. Significantly fibrotic liver (F3) Recommendations: Consider EUS guided liver biopsy Signature: Ledy Galan DO References: Teagan N, Bart Nielsen. (2014) Utilization of FibroScan in Clinical Practice. Curr Gastroenterol Rep. DOI 10.1007/k55108-337-6678-7 Table 1 Recommended values for different stage of fibrosis Disease F0-F1 (kPA) F2 (kPA) F3 (kPA) F4 (kPA) Hepatitis B < 6.0 > 6.0 > 9.0 >12.0 Hepatitis C < 7.0 > 7.0 > 9.5 > 12.0 HCV-HIV coinfection < 7.0 < 10.0 > 11.0 >14.0 Cholestatic liver disease < 7.0 > 7.5 > 10.0 > 17.0 NAFLD/OSULLIVAN < 7.0 > 7.5 < 10.0 > 14.0 Thank you for referring your patient for Fibroscan. Please do not hesitate to contact us for further information. documented in this encounter Nursing Notes * Claudia Otoole RN - 09/07/2023 1:08 PM EST Pt here for fibroscan. NPO > 3 hours. documented in this encounter Plan of Treatment Upcoming Encounters Date Type Department Care Team (Latest Contact Info) Description 10/16/2023 1:00 PM EDT [facility] [address] [place] [phone] Halley Kilpatrick CRNP [address] [place] [address] 10/22/2023 9:00 AM EDT Hospital Encounter ENDO [facility], Endoscopy Room [facility] [address] [place] [phone] Kary Keene MD [address] [place] [address] 10/22/2023 9:00 AM EDT - 10/22/2023 10:00 AM EDT Surgery ENDO [facility], Endoscopy Room [facility] [address] [place] [phone] Kary Keene MD [address] [place] [address] ESOPHAGOGASTRODUODENOSCOPY (EGD), FLEXIBLE, TRANSORAL, ENDOSCOPIC ULTRASOUND 11/09/2023 8:30 AM EDT Office Visit Pharmacy, [facility] [place] [address] Pharmacist1, [facility] [address] [place] [address] 01/02/2024 12:40 PM EDT Office Visit Family Practice [facility] [address] [facility] [place] [address] JosefaJad hare III, MD [address] [place] [address] 01/31/2024 1:40 PM EDT Office Visit Neurology [facility] [address] [facility] [place] [address] Ricardo Reza MD [address] [place] [address] Pending Results Name Type Priority Associated Diagnoses Date /Time LIVER ELASTOGRAPHY W/O IMAGING Procedures Routine NAFLD (nonalcoholic fatty liver disease) 09/07/2023 1:50 PM EST Scheduled Procedures Name Priority Associated Diagnoses Date/Ti [...] Not on filedocumented as of this encounter Procedures Procedure Name Priority Date/Time Associated Diagnosis Comments LIVER ELASTOGRAPHY W/O IMAGING Routine 09/07/2023 1:50 PM EST NAFLD (nonalcoholic fatty liver disease) documented in this encounter Visit Diagnoses Diagnosis NAFLD (nonalcoholic fatty liver disease)- Primary Other chronic nonalcoholic liver disease Elevated LFTs Other abnormal blood chemistry documented in this encounter Care Teams Fishing Accessories Maker Relationship Specialty Start Date End Date Gloria Skaggs DO [address] [place] [address] PCP - General Family Medicine 07/04/19 documented as of this encounter
--- OUTSIDE RECORDS SUMMARY | 2023-10-14 13:08 | External Medical Summary | Summary of Care ---
Author Name Unknown Organization [facility] Address [address] [place] [address] Phone [phone] Care Team Providers Care Cv/Cvn Cv Tsc System Operator Name Role Phone Gloria Skaggs DO Primary Care Provider Reason for Visit * Reason Comments Physical-Exam annual physical for MA51 and stitch removal Encounter Details Date Type Department Care Team (Latest Contact Info) Description 09/27/2023 9:20 AM EDT Office Visit [facility] [address] [facility] [place] [address] Gloria Skaggs DO [address] [place] [address] Type 2 diabetes mellitus with diabetic polyneuropathy, with long-term current use of insulin ([facility])*; Schizoaffective disorder, bipolar type ([facility]); Bipolar disorder, in partial remission, most recent episode depressed ([facility]); Bilateral occipital neuralgia; Dyslipidemia, goal LDL below 100; Gastroesophageal reflux disease without esophagitis; Essential hypertension with goal blood pressure less than 140/90; Factor V Leiden mutation ([facility]); Generalized anxiety disorder; Gastroparesis; Major depressive disorder with single episode, in partial remission ([facility]); NAFLD (nonalcoholic fatty liver disease); Post-traumatic stress disorder, chronic; Type 2 diabetes mellitus with hemoglobin A1c goal of less than 7.0% (HCC); Episodic tension-type headache, not intractable; Laceration of digital nerve of finger, subsequent encounter; Type II diabetes mellitus with neurological manifestations ([facility]) Allergies Active Allergy Reactions Criticality Noted Date [...] hemoglobin A1c goal of less than 7.0% ([facility]) Use twice daily E11.9 insulin dependent 1 [...] 9 Each 3 3 Active Dexcom G7 Mixed Livestock Farm Worker DeviceIndications: Type 2 diabetes mellitus with hemoglobin [...] 100 Each 3 3 Active Dexcom G7 Mixed Livestock Farm Worker Device USE TO READ DEXCOM G7 CGM [...] mRNA, LNP-s, No Pre serve, 2-Dose Series ([employer]) 05/10/2021,09/09/2020,08/20/2020 Hepatitis B, 20+ yrs 12/10/2014,04/10/2014,10/07 PPD [...] calluses yourself. Talk to your doctor or electronic resources librarian (a doctor who specializes in foot care) [...] the area doesnt appear to be healing. [id number] [employer], [address] [place] [address], [place] [address]. All rights reserved. This information is not [...] Needs MA 51 filled out, lives in shelter Sees psychiatry Neuropathy in b/l LEs, feet [...] of this patient. 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 Schizophrenia ([facility]) 04/18/2016 Past Surgical History: Procedure Laterality Date COLONOSCOPY, DIAGNOSTIC (RECTUM) 02/06/2020 poor prep, repeat 6-12 mo / COLONOSCOPY FLEXIBLE PROXIMAL DIAGNOSTIC performed by Padmini Gerber MD at[facility]OSCOPY [facility] COLONOSCOPY, DIAGNOSTIC (RECTUM) 03/10/2022 poor prep, repeat 3-5 yrs / COLONOSCOPY FLEXIBLE PROXIMAL DIAGNOSTIC performed by Padmini Gerber MD atENDOSCOPY [facility] EGD, FLEXIBLE, DIAGNOSTIC 11/01/2021 normal bx / INPT [facility] EGD, FLEXIBLE, DIAGNOSTIC 11/06/2022 retained food / ESOPHAGOGASTRODUODENOSCOPY (EGD), FLEXIBLE, TRANSORAL, DIAGNOSTIC performed by MD Oscar at ENDOSCOPY [facility] KNEE ARTHROSCOPY/MENISCECTOMY Left 05/07/2020 ARTHROSCOPY KNEE MEDIAL OR LATERAL MENISCECTOMY performed by Anderson Lainez DO at OR [facility] MISCELLANEOUS ORDER ([facility] ONLY) left knee, graft [...] 10 days. 9 Each 3 Dexcom G7 Mixed Livestock Farm Worker Device Use to read Dexcom G7 CGM [...] glucose monitor. 100 Each 3 Dexcom G7 Mixed Livestock Farm Worker Device USE TO READ DEXCOM G7 CGM [...] 16 | Ht 1.803 m (5' 11") | Wt 106.5 kg (234 lb 12.8 oz) | [...] Direct 0.0 - 0.3 mg/dL <0.2 <0.2 Wilmer Level 0.6 - 1.2 mmol/L 0.2 (L) PROTEIN, UA-OUTSIDE LAB NEGATIVE NEGATIVE (E) US ABDOMEN LIMITED Rpt CAP SCORE dB/m 346 (P) Fibrosis Staging Pend (P) IQR/med Range < 30% 5 (P) LIVER ELASTOGRAPHY W/O IMAGING Rpt Median Liver Stiffness kilopascal (kPa) 10.6 (P) Median Shear Wave Speed meters/second 1.88 (P) Hemoglobin AIC Results: No components found for: "[id number]" Lab Results Component Value Date/Time LDL CHOLESTEROL (CALCULATED) - Scloby 19 07/20/2023 07:58 AM LDL CHOLESTEROL (CALCULATED) - Scloby 40 03/28/2023 07:52 AM LDL CHOLESTEROL (CALCULATED) [...] polyneuropathy, with long-term current use of insulin ([facility]) Lantus increased from 42 to 52 units, Lispro increased from 3 to 4 units with meals, Continue Trulicity 4.5mg weekly. Metformin with breakfast and dinner (not bedtime) Eye exam scheduled 10/15/23 Schizoaffective disorder, bipolar type (HCC) Bipolar disorder, in partial remission, most recent episode depressed (HCC) Generalized anxiety disorder Major depressive disorder with single episode, in partial remission ([facility]) Post-traumatic stress disorder, chronic Abilify injection, lamictal, [...] 10/01/2023 10:20 AM EDT Office Visit Family [facility] [place] [address] [place] [address] Tatianna Jean PA-C [address] [place] [address] 10/16/2023 1:00 PM EDT Office Visit [facility] [place] [address] [place] [phone] Halley Kilpatrick CRNP [address] [place] [address] 10/22/2023 9:00 AM EDT Hospital Encounter ENDO [facility], Endoscopy Room [facility] [address] [place] [phone] Kary Keene MD [address] [place] [address] 10/22/2023 9:00 AM EDT - 10/22/2023 10:00 AM EDT Surgery ENDO [facility], [facility] [place] [phone] Kary Keene MD [address] [place] [address] ESOPHAGOGASTRODUODENOSCOPY (EGD), FLEXIBLE, TRANSORAL, ENDOSCOPIC ULTRASOUND 11/09/2023 8:30 AM EDT Office Visit Pharmacy, [facility] [place] [address] [facility] [place] [address] Pharmacist1, [facility] [address] [facility] [place] [address] 01/31/2024 1:40 PM EDT Office Visit Neurology [facility] [place] [address] [facility] [place] [address] Ricardo Reza MD [address] [place] [address] Scheduled Orders Name Type Priority Associated Diagnoses [...] chemistry documented in this encounter Care Teams Cv/Cvn Cv Tsc System Operator Relationship Specialty Start Date End Date Gloria Skaggs DO [address] [place] [address] PCP - General Family Medicine 07/04/19 documented as of this encounter
--- OUTSIDE RECORDS SUMMARY | 2023-10-14 13:08 | External Medical Summary | Summary of Care ---
Author Name Unknown Organization [facility] Address [address] [place] [address] Phone [phone] Care Team Providers Care Apartment Community Manager Name Role Phone Gloria Skaggs DO Primary Care Provider Reason for Visit * Reason Onset Date Comments Test Results 09/10/2023 Encounter Details Date Type Department Care Team (Late st Contact Info) Description 09/10/2023 Telephone Gastroenterology, [facility] [address] [place] [address] Deborah Zapien CRNP [address] [place] [address] Test Results Allergies Active Allergy Reactions Criticality Noted Date [...] blood sugar. 1 Kit 1 3 Active Dexcom G7 SensorIndications: Type 2 diabetes mellitus with hemoglobin A1c goal of less than 7.0% (HCC) Use to read blood glucose. Change every 10 days. 9 Each 3 3 Active Dexcom G7 Display Carver DeviceIndications: Type 2 diabetes mellitus with hemoglobin [...] 100 Each 3 3 Active Dexcom G7 Display Carver Device USE TO READ DEXCOM G7 CGM [...] time period 9 Tablet 5 4 Active BD Pen Needle Chandrika U/F 32G X 4 MM (Insulin Pen Needle)Indications :Type 2 diabetes mellitus with hemoglobin A1c goal of less than 7.0% (HCC) Use with Lantus and Novolog pen 3 times daily DxE11.9 300 Each 3 3 10/02/19 24 Discontinued(Re fill) Insulin Lispro (1 Unit Dial) 100 UNIT/ML [...] hemoglobin A1c goal of less than 7.0% ([facility]) Inject 42 Units under the skin at [...] Overview: Psychiatry: Carol De Counselor: Hector Gan [place] documented as of this encounter (statuses as [...] mRNA, LNP-s, No Pre serve, 2-Dose Series ([employer]) 05/10/2021,09/09/2020,08/20/2020 Hepatitis B, 20+ yrs 12/10/2014,04/10/2014,10/07 PPD [...] encounter Miscellaneous Notes * Telephone Encounter - Antonia Gillespie OSA - 10/04/2023 2:28 PM EDT Scheduled JEAN Galdamez 10/04/2023 2:28 PM * Telephone Encounter - Antonia Gillespie OSA - 09/21/2023 12:42 PM EST Lmm JEAN Galdamez 09/21/2023 12:42 PM * Addendum Note - Deborah Zapien CRNP - 09/10/2023 1:31 PM EST Addended by: DEBORAH ZAPIEN on: 09/10/2023 01:31 PM Modules accepted: Orders * Telephone Encounter - Deborah Zapien CRNP - 09/10/2023 1:31 PM EST Plan: Plt Pt inr Egd, w/endoscopic us * Telephone Encounter - Jayy Jj LPN - 09/10/2023 10:20 AM EST Pt is agreeable to biopsy. Scheduling please assist in getting this setup. * Telephone Encounter - Deborah Zapien CRNP - 09/10/2023 9:30 AM EST Called pt No answer Left callback number Please let him know I reviewed the fibroscan F3 fibrosis This suggests there is significant fibrosis to the liver The doctor who read the test is recommending a liver biopsy to confirm this Please see if he is agreeable to egd/eus-lb THOMAS Sherwood 09/10/2023 9:39 AM documented in this encounter Plan of Treatment Upcoming Encounters Date Type Department Care Team (Latest Contact Info) Description 10/16/2023 1:00 PM EDT Office Visit [facility] [address] [phone] Halley Kilpatrick CRNP [address] [place] [address] 10/22/2023 9:00 AM EDT Hospital Encounter ENDO [facility], Endoscopy Room [facility] [address] [place] [phone] Kary Keene MD [address] [place] [address] 10/22/2023 9:00 AM EDT - 10/22/2023 10:00 AM EDT Surgery ENDO [facility], Endoscopy Room [facility] [address] [place] [phone] Kary Keene MD [address] [place] [address] ESOPHAGOGASTRODUODENOSCOPY (EGD), FLEXIBLE, TRANSORAL, ENDOSCOPIC ULTRASOUND 11/09/2023 8:30 AM EDT Office Visit Pharmacy, [facility] [address] [facility] [place] [address] Pharmacist1, [facility] [address] [facility] [place] [address] 01/02/2024 12:40 PM EDT Office Visit [facility] [address] [facility] [place] [address] Jad Rivero III, MD [address] [facility] [place] [address] 01/31/2024 1:40 PM EDT Office Visit Neurology [facility] [address] [facility] [place] [address] Ricardo Reza MD [address] [place] [address] 03/21/2024 7:20 AM EDT Office Visit [facility] [address] [facility] [place] [address] Gloria Skaggs DO [address] [facility] [place] [address] Scheduled Orders Name Type Priority Associated Diagnoses Orde r Schedule EGD, W/ENDOSCOPIC US Procedures Routine Fatty liver Liver fibrosis Ordered: 09/10/2023 PLT Lab Routine Fatty liver Liver fibrosis Expected: 09/10/2023, Expires: 09/10/2024 PT INR Lab Routine Fatty liver Liver fibrosis Expected: 09/10/2023, Expires: 09/10/2024 Scheduled Procedures Name Priority Associated Diagnoses Date/Ti [...] as of this encounter Visit Diagnoses Diagnosis Fatty liver- Primary Other chronic nonalcoholic liver disease Liver fibrosis Cirrhosis of liver without mention of alcohol Elevated LFTs Other abnormal blood chemistry documented in this encounter Care Teams Apartment Community Manager Relationship Specialty Start Date End Date Gloria Skaggs DO [address] [place] [address] PCP - General Family Medicine 07/04/19 documented as of this encounter
--- OUTSIDE RECORDS SUMMARY | 2023-10-14 13:08 | External Medical Summary | Summary of Care ---
Author Name Unknown Organization [facility] Address [address] [place] [address] Phone [phone] Care Team Providers Care Electrical Assembler Name Role Phone Gloria Skaggs DO Primary Care Provider Reason for Visit * Reason Onset Date Comments Medication Refill 10/08/2023 Encounter Details Date Type Department Care Team (Late st Contact Info) Description 10/08/2023 Refill Neurology [facility] [address] [place], [place] [phone] Ricardo Perry MD [address] [place] [address] Episodic tension-type headache, not intractable Allergies Active Allergy Reactions Criticality Noted Date Comments Chlorpromazine 05/09/2016 aggitation Cyclobenzaprine Low 12/17/2020 Other reaction(s): RASH Valproic Acid 05/09/2016 "unable to function" Ziprasidone Hydrochloride 02/23/2010 Tramadol Low 12/17/2020 Other reaction(s): RASH Ziprasidone High 12/17/2020 Other reaction(s): FACIAL SWELLING; RASH documented as of this encounter (statuses as of 10/09/2023) Medications Medication Sig Dispensed Refills Start Date [...] 9 Each 3 11/14/2022 Active Dexcom G7 Sales Warehouse Driver DeviceIndications:T ype 2 diabetes mellitus with hemoglobin [...] 100 Each 3 01/11/2023 Active Dexcom G7 Sales Warehouse Driver Device USE TO READ DEXCOM G7 CGM [...] for Congestion. 24 Tablet 1 05/16/2023 Active Docusate Sodium 100 MG Oral Capsule [...] before bedtime. 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 polyneuropathy, with long-term current use of insulin 09/27/2023 Gastroparesis 05/08/2023 Type 2 diabetes mellitus with diabetic polyneuro chrsitian 10/06/2022 Bilateral occipital neuralgia 09/22/2022 Chronic constipation [...] as of this encounter (statuses as of 10/09/2023) Resolved Problems Problem Noted Date Diagnosed Date [...] as of this encounter (statuses as of 10/09/2023) Immunizations Name Administration Dates Next Due COVID-19 mRNA, LNP-s, No Pre serve, 2-Dose Series ([employer]) 05/10/2021,09/09/2020,08/20/2020 Hepatitis B, 20+ yrs 12/10/2014,04/10/2014,10/07 PPD [...] encounter Miscellaneous Notes * Telephone Encounter - Ricardo Perry MD - 10/09/2023 8:05 AM EDTSigned Prescriptions: Disp Refills tiZANidine HCl 4 MG Oral Tablet (Zanaflex) 28 Tab*4 Sig: TAKE 1 TABLET BY MOUTH AT BEDTIME FOR SPASMS Authorizing Provider: RICARDO PERRY * Telephone Encounter - Mary Jackson LPN - 10/09/2023 7:44 AM EDT Pending Prescriptions: Disp Refills tiZANidine HCl 4 MG Oral Tablet (Zanaflex) 28 Tab*4 Sig: TAKE 1 TABLET BY MOUTH AT BEDTIME FOR SPASMS * Telephone Encounter - Bibiana Naik CPhT - 10/08/2023 3:53 PM EDT Pending Prescriptions: Disp Refills tiZANidine HCl 4 MG Oral Tablet (Zanaflex) 28 Tab*4 * Telephone Encounter - Seamus Villalpando LPN - 10/08/2023 3:39 PM EDTPending Prescriptions: Disp Refills tiZANidine HCl 4 MG Oral Tablet (Zanaflex) 28 Tab*4 * Telephone Encounter - Seamus Villalpando LPN - 10/08/2023 3:38 PM EDT Sent to [facility] * Telephone Encounter - Bibiana Naik CPhT - 10/08/2023 3:20 PM EDT Patient is up to date for office visits. Pending Prescriptions: Disp Refills tiZANidine HCl 4 MG Oral Tablet (Zanaflex)28 Tab*4 Last Visit: Visit date not found (in office), Visit date not found (telemedicine) Next Visit: Visit date not found If no future appointments scheduled, and last appointment is greater than a year ago, please schedule patient for a follow-up appointment Last date the medication was ordered: 05/21/23 Pharmacy: [facility] [address] Is this request for a controlled substance?No it is not controlled. Urine Drug Screen: Results for orders placed or performed in visit on 12/19/17 TOX SCREEN, URINE, W/ CONFIRMATION Result Value Amphetamine NEGATIVE Barbiturates NEGATIVE Benzodiazepines POSITIVE (A) Cannabinoids NEGATIVE Cocaine Metabolite NEGATIVE Morphine / Codeine NEGATIVE METHADONE METABOLITE NEGATIVE OXYCODONE NEGATIVE TOX COMMENT THE ABOVE SCREENING RESULTS ARE PRESUMPTIVE AND CAN ONLY BE USED FOR MEDICAL PURPOSES. POSITIVE RESULTS REFLEX TO CONFIRMATORY TESTING. Cutoff Concentration *Note: Due to a large number of results and/or encounters for the requested time period, some results have not been displayed. A complete set of results can be found in Results Review. Patient Phone Numbers Labs: Lab Results Component Value Date/Time CREAT 0.9 07/20/2023 07:58 AM CREAT 0.96 05/01/2023 12:00 AM CREAT 1.0 05/27/2020 10:30 AM POTASSIUM 4.4 07/20/2023 07:58 AM POTASSIUM 4.0 05/01/2023 12:00 AM POTASSIUM 4.2 05/27/2020 10:30 AM TSH 2.25 07/20/2023 07:58 AM TSH 1.98 05/27/2020 10:30 AM LDLCALC 19 07/20/2023 07:58 AM LDLCALC 33 01/08/2020 08:54 AM LDLDIRECT NOT APPLICABLE 01/08/2020 08:54 AM ALT 45 09/18/2023 08:11 AM ALT 49 05/27/2020 10:30 AM HGBA1C 7.3 (H) 07/20/2023 07:58 AM HGBA1C 8.0 (H) 07/11/2023 12:17 PM HGBA1C 8.2 (H) 05/27/2020 10:30 AM Bibiana Zayas CPhT Booth Usher III [facility] ([facility] (Formerly [facility]) 10/08/2023,3:22 PM documented in this encounter Plan of Treatment Upcoming Encounters Date Type Department Care Team (Latest Contact Info) Description 10/16/2023 1:00 PM EDT Office Visit [facility] [address] [place] [phone] Halley Kilpatrick CRNP [address] [place] [address] 10/22/2023 9:00 AM EDT Hospital Encounter ENDO [facility], Endoscopy Room [facility] [address] [place] [phone] Kary Keene MD [address] [place] [address] 10/22/2023 9:00 AM EDT - 10/22/2023 10:00 AM EDT Surgery ENDO [facility], Endoscopy Room [facility] [address] [place] [phone] Kary Keene MD [address] [place] [address] ESOPHAGOGASTRODUODENOSCOPY (EGD), FLEXIBLE, TRANSORAL, ENDOSCOPIC ULTRASOUND 11/09/2023 8:30 AM EDT Office Visit Pharmacy, [facility] [address] [place] [address] Pharmacist1, [facility] [address] [place] [address] 01/02/2024 12:40 PM EDT Office Visit Family Practice [facility] [address] [place] [address] Jad Rivero III, MD [address] [place] [address] 01/31/2024 1:40 PM EDT Office Visit Neurology [facility] [address] [place] [address] Ricardo Perry MD [address] [place] [facility] [address] 03/21/2024 7:20 AM EDT Office Visit Family Practice [facility] [place] [address] [facility] [place] [address] Gloria SkaggslyDO 200 [facility] [place] [address] Scheduled Procedures Name Priority Associated Diagnoses Date/Ti [...] as of this encounter Visit Diagnoses Diagnosis Episodic tension-type headache, not intractable Episodic tension type headache Elevated LFTs Other abnormal blood chemistry documented in this encounter Care Teams Electrical Assembler Relationship Specialty Start Date End Date Gloria Skaggs DO [address] [place] [address] PCP - General Family Medicine 07/04/19 documented as of this encounter
--- OUTSIDE RECORDS SUMMARY | 2023-10-14 13:08 | External Medical Summary | Summary of Care ---
Author Name Unknown Organization [facility] Address [address] [place] [address] Phone [phone] Care Team Providers Care Field Marketing Director Name Role Phone Gloria Skaggs DO Primary Care Provider Reason for Visit * Reason Onset Date Comments Advice 10/02/2023 FYI 10/02/2023 Encounter Details Date Type Department Care Team (Late st Contact Info) Description 10/02/2023 Telephone Family Practice [facility] [address] [place] [address] Gloria Skaggs DO 200 [place] [address] Advice; Allergies Active Allergy Reactions Criticality Noted [...] 9 Each 3 11/14/2022 Active Dexcom G7 Oracle Specialist DeviceIndications:Ty pe 2 diabetes mellitus with hemoglobin [...] 100 Each 3 01/11/2023 Active Dexcom G7 Oracle Specialist Device USE TO READ DEXCOM G7 CGM [...] hemoglobin A1c goal of less than 7.0% ([facility]) Use with Lantus and Novolog pen 3 [...] mRNA, LNP-s, No Pre serve, 2-Dose Series ([employer]) 05/10/2021,09/09/2020,08/20/2020 Hepatitis B, 20+ yrs 12/10/2014,04/10/2014,10/07 PPD [...] encounter Miscellaneous Notes * Telephone Encounter - Crys Thomas, JOSIAH - 10/03/2023 11:42 AM EDT Pending Prescriptions: [...] Active Problem List Diagnosis Code Bipolar disorder ([facility]) F31.9 Esophageal reflux K21.9 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 Dental caries K02.9 Snoring R06.83 Smokeless tobacco use Z72.0 Type 2 diabetes mellitus with hemoglobin A1c goal of less than 7.0% ([facility]) E11.9 NAFLD (nonalcoholic fatty liver disease) K76.0 Dyslipidemia, goal LDL below 100 E78.5 Factor V Leiden mutation ([facility]) D68.51 Schizoaffective disorder ([facility]) F25.9 Essential hypertension with goal blood pressure less than 140/90 I10 Bipolar disorder, in partial remission, most recent episode depressed ([facility]) F31.75 Schizoaffective disorder, bipolar type ([facility]) F25.0 Generalized anxiety disorder F41.1 Major depressive disorder, single episode, unspecified F32.9 Post-traumatic stress disorder, chronic F43.12 Chronic constipation K59.09 Bilateral occipital neuralgia M54.81 Type 2 diabetes mellitus with diabetic polyneuropathy ([facility]) E11.42 Gastroparesis K31.84 Type 2 diabetes mellitus with diabetic polyneuropathy, with long-term current use of insulin ([facility]) E11.42, Z79.4 Labs: Lab Results Component Value [...] PM EDT Office Visit [facility] [address] [phone] Halley Kilpatrick CRNP [address] [address] 10/22/2023 9:00 AM EDT Hospital Encounter ENDO [facility], Endoscopy Room [facility] [address] [phone] Kary Keene MD [address] [address] 10/22/2023 9:00 AM EDT - 10/22/2023 10:00 AM EDT Surgery ENDO [facility], Endoscopy Room [facility] [address] [place] [address] Kary Keene MD [address] [address] ESOPHAGOGASTRODUODENOSCOPY (EGD), FLEXIBLE, TRANSORAL, ENDOSCOPIC ULTRASOUND 11/09/2023 8:30 AM EDT Office Visit Pharm[facility], [facility] [place] [address] Pharmacist1, [facility] 200 [facility] [place] [address] 01/02/2024 12:40 PM EDT Office Visit [facility] [address] [facility] [address] Jad Rivero III, MD [address] [facility] [place] [address] 01/31/2024 1:40 PM EDT Office Visit Neurology [facility] [address] [facility] [address] Ricardo Reza MD [address] [place] [address] 03/21/2024 7:20 AM EDT Office Visit [facility] [address] [facility] [address] Gloria Skaggs DO [address] [facility] [place] [address] Scheduled Procedures Name Priority Associated Diagnoses Date/Ti [...] chemistry documented in this encounter Care Teams Field Marketing Director Relationship Specialty Start Date End Date Gloria Skaggs DO [address] [place] [address] PCP - General Family Medicine 07/04/19 documented as of this encounter
--- OUTSIDE RECORDS SUMMARY | 2023-10-14 13:08 | External Medical Summary | Summary of Care ---
Author Name Unknown Organization [facility] Address [address] [place] [address] Phone [phone] Care Team Providers Care Correspondence Representative Name Role Phone Paulie Skaggs DO Primary Care Provider Reason for Visit * Reason Onset Date Comments Medication Refill 10/02/2023 Encounter Details Date Type Department Care Team (Late st Contact Info) Description 10/02/2023 Refill Pharmacy, [facility] 200 [facility] [place] [address] Paulie Skaggs DO 200 [facility] [place] [address] Type 2 diabetes mellitus with hemoglobin A1c goal of less than 7.0% ([facility]) Allergies Active Allergy Reactions Criticality Noted Date Comments Chlorpromazine 05/09/2016 aggitation Cyclobenzaprine Low 12/17/2020 Other reaction(s): RASH Valproic Acid 05/09/2016 "unable to function" Ziprasidone Hydrochloride 02/23/2010 Tramadol Low 12/17/2020 Other reaction(s): RASH Ziprasidone High 12/17/2020 Other reaction(s): FACIAL SWELLING; RASH documented as of this encounter (statuses as of 10/02/2023) Medications Medication Sig Dispensed Refills Start Date [...] 9 Each 3 11/14/2022 Active Dexcom G7 Spray Drier DeviceIndications:T ype 2 diabetes mellitus with hemoglobin [...] 100 Each 3 01/11/2023 Active Dexcom G7 Spray Drier Device USE TO READ DEXCOM G7 CGM [...] without 48 hour time period 9 Tablet 08/20/2023 Active Insulin Lispro (1 Unit Dial) [...] under the skin at bedtime. 45 mL 09/27/2023 Active Lisinopril 2.5 MG Oral Tablet (Prinivil) Take 1 Tablet by mouth in the morning. 30 Tablet 11 09/27/2023 Active Gabapentin 300 MG Oral Capsule (Neurontin)Indicati [...] daily DxE11.9 300 Each 3 10/02/2023 Active BD Pen Needle Chandrika U/F 32G X 4 MM (Insulin Pen Needle)Indications: Type 2 diabetes mellitus with hemoglobin A1c goal of less than 7.0% (HCC) Use with Lantus and Novolog pen 3 times daily DxE11.9 300 Each 3 09/22/2022 4 Discontinue d(Refill) documented as of this encounter (statuses as of 10/02/2023) Active Problems Problem Noted Date Diagnosed Date [...] as of this encounter (statuses as of 10/02/2023) Resolved Problems Problem Noted Date Diagnosed Date [...] as of this encounter (statuses as of 10/02/2023) Immunizations Name Administration Dates Next Due COVID-19 mRNA, LNP-s, No Pre serve, 2-Dose Series ([employer]) 05/10/2021,09/09/2020,08/20/2020 Hepatitis B, 20+ yrs 12/10/2014,04/10/2014,10/07 PPD [...] encounter Miscellaneous Notes * Telephone Encounter - Annabelle Dean RPh - 10/02/2023 8:49 AM EDT Signed Prescriptions: Disp Refills BD Pen Needle Chandrika U/F 32G X 4 MM (Insulin*300 Ea*3 Sig: Use with Lantus and Novolog pen 3 times daily DxE11.9Authorizing Provider: PAULIE SKAGGS User: ANNABELLE DEAN documented in this encounter Plan of Treatment Upcoming Encounters Date Type Department Care Team (Latest Contact Info) Description 10/16/2023 1:00 PM EDT Office Visit [facility] Disorders Ctr [facility] [address] [place] [phone] Halley Kilpatrick CRNP [address] [place] [address] 10/22/2023 9:00 AM EDT Hospital Encounter ENDO [facility], Endoscopy Room [facility] [address] [place] [phone] Kary Keene MD [address] [place] [address] 10/22/2023 9:00 AM EDT - 10/22/2023 10:00 AM EDT Surgery ENDO [facility], Endoscopy Room [facility] [address] [place] [phone] Kary Keene MD [address] [place] [address] ESOPHAGOGASTRODUODENOSCOPY (EGD), FLEXIBLE, TRANSORAL, ENDOSCOPIC ULTRASOUND 11/09/2023 8:30 AM EDT Office Visit Pharmacy, [facility] [address] [place] [address] Pharmacist1, [facility] [address] [place] [address] 01/02/2024 12:40 PM EDT Office Visit [facility] [address] [place] [address] Jad Rivero III, MD [address] [place] [address] 01/31/2024 1:40 PM EDT Office Visit Neurology [facility] 200 [facility] [place] [address] Ricardo Reza MD [address] [facility] [place] [id number] 03/21/2024 7:20 AM EDT Office Visit [facility] [address] [place] [address] Paulie Skaggs DO 200 [facility] [place] [address] Scheduled Procedures Name Priority Associated Diagnoses Date/Ti [...] A1c goal of less than 7.0% (HCC) Elevated LFTs Other abnormal blood chemistry documented in this encounter Care Teams Correspondence Representative Relationship Specialty Start Date End Date Paulie Skaggs DO [address] [place] [address] PCP - General Family Medicine 07/04/19 documented as of this encounter
--- OUTSIDE RECORDS SUMMARY | 2023-10-14 13:09 | External Medical Summary ---
Author Name Unknown Address Unknown Organization [id number]:LABORATORY [facility] - [address] [place] [address] Laboratory Report Ordering Provider Test Date Status BENITO JUAN 09/18/2023 08:11:30 Final Observation Date Value Abnormality Reference (Units ) Status MYCODE SPECIMEN-SST 09/18/2023 08:11:30 Freezing of extracted DNA, whole blood and/or serum. Final Performing Location LABORATORY [facility] - [address] [place] [address]
--- OUTSIDE RECORDS SUMMARY | 2023-10-14 13:09 | External Medical Summary | Summary of Care ---
Author Name Unknown Organization [facility] Address [address] [place] [address] Phone [phone] Care Team Providers Care Wirer Name Role Phone Gloria Skaggs DO Primary Care Provider Reason for Visit * Reason Comments Outpatient Testing Encounter Details Date Type Department Care Team (Late st Contact Info) Description 09/18/2023 8:30 AM EST Laboratory Laboratory, [facility] [address] [place] [phone] [facility] [address], [place] [id number] [employer] Other*[id number]; Encounter for long-term (current) use of medications; Fatty liver Allergies Active Allergy Reactions Criticality Noted Date Comments Chlorpromazine 05/09/2016 aggitation Cyclobenzaprine Low 12/17/2020 Other reaction(s): RASH Valproic Acid 05/09/2016 "unable to function" Ziprasidone Hydrochloride 02/23/2010 Tramadol Low 12/17/2020 Other reaction(s): RASH Ziprasidone High 12/17/2020 Other reaction(s): FACIAL SWELLING; RASH documented as of this encounter (statuses as of 09/19/2023) Medications Medication Sig Dispensed Refills Start Date [...] blood sugar. 1 Kit 1 07/24/2022 Active BD Pen Needle Chandrika U/F 32G X 4 MM (Insulin Pen Needle)Indications:T ype 2 diabetes mellitus with hemoglobin A1c goal of less than 7.0% (HCC) Use with Lantus and Novolog pen 3 times daily DxE11.9 300 Each 3 09/22/2022 Active Dexcom G7 SensorIndications:Ty pe 2 diabetes mellitus with hemoglobin A1c goal of less than 7.0% (HCC) Use to read blood glucose. Change every 10 days. 9 Each 3 11/14/2022 Active Dexcom G7 Student Support Services Director DeviceIndications:Ty pe 2 diabetes mellitus with hemoglobin [...] hemoglobin A1c goal of less than 7.0% ([facility]) Use to wipe skin prior to placing continuous glucose monitor. 100 Each 3 01/11/2023 Active Dexcom G7 Student Support Services Director Device USE TO READ DEXCOM G7 CGM DIRECTED 1 Each 0 11/14/2022 11/14/2023 Active Dexcom G7 Sensor USE TO READ BLOOD GLUCOSE. CHANGE EVERY 10 DAYS 9 Each 3 11/14/2022 11/14/2023 Active Insulin Lispro (1 Unit Dial) 100 UNIT/ML Subcutaneous Solution Pen-injector (HumaLOG KwikPen)Indications: Type 2 diabetes mellitus with hemoglobin A1c goal of less than 7.0% ([facility]) Inject 3 Units under the skin 2 times a day with morning and evening meals. Or as directed 15 mL 3 02/02/2023 Active Nortriptyline HCl 25 MG Oral Capsule [...] FOR DM 56 Tablet 10 07/11/2023 Active Insulin Glargine Solostar 100 UNIT/ML Subcutaneous Solution Pen-injector (Lantus SoloStar)Indications :Type 2 diabetes mellitus with hemoglobin A1c goal of less than 7.0% (HCC) Inject 42 Units under the skin at bedtime. 45 mL 3 07/11/2023 Active Trulicity 4.5 MG/0.5ML Subcutaneous Solution Pen-injector (Dulaglutide)Indicat ions:Type 2 diabetes mellitus with hemoglobin A1c goal of less than 7.0% ([facility]) Inject 4.5 mg under the skin once a week. 2 mL 12 07/11/2023 Active Acidophilus Oral Capsule Take 2 Capsules by mouth in the morning. Take 2 Capsules by mouth daily.. 60 Capsule 5 07/20/2023 Active Ondansetron 4 MG Oral Tablet Disintegrating (Zofran) Place 1 Tablet on tongue every 8 hours as needed for Nausea. dissolve on tongue. 30 Tablet 1 07/20/2023 Active Lisinopril 5 MG Oral Tablet (Prinivil)Indication s:HTN, goal below 140/90 Take 1 Tablet by mouth in the morning. 90 Tablet 1 07/20/2023 Active Atorvastatin Calcium 10 MG Oral Tablet (Lipitor)Indications :Dyslipidemia, goal LDL below 100 Take 1 Tablet by mouth in the morning. 90 Tablet 1 07/20/2023 Active ReadyLance Safety LancetsIndications:T ype 2 diabetes mellitus with hemoglobin A1c goal of less than 7.0% ([facility]) TEST BLOOD SUGAR FOUR TIMES DAILY FOR DM. DX: E11.9 400 Each 3 07/18/2023 Active Linzess 290 MCG Oral Capsule (linaCLOtide) Take 1 Capsule by mouth daily before breakfast. 90 Capsule 1 07/19/2023 Active Abilify Asimtufii 960 MG/3.2ML Intramuscular Prefilled Syringe 0 07/06/2023 Active Accu-Chek Guide In Vitro Strip (Glucose Blood)Indications:Ty pe 2 diabetes mellitus with hemoglobin A1c goal of less than 7.0% ([facility]) TEST BLOOD SUGAR FOUR TIMES DAILY FOR DM. DX: E11.9 400 Strip 3 07/31/2023 Active Haloperidol 5 MG Oral Tablet (Haldol) 0 07/26/2023 Acti ve Gabapentin 300 MG Oral Capsule (Neurontin)Indicatio ns:Episodic tension-type headache, not intractable,Bilatera l occipital neuralgia Take 1 Capsule by mouth at bedtime. 30 Capsule 5 08/01/2023 Active Pantoprazole Sodium 40 MG Oral Tablet [...] time period 9 Tablet 5 08/20/2023 Active documented as of this encounter (statuses as of 09/19/2023) Active Problems Problem Noted Date Diagnosed Date [...] as of this encounter (statuses as of 09/19/2023) Resolved Problems Problem Noted Date Diagnosed Date [...] as of this encounter (statuses as of 09/19/2023) Immunizations Name Administration Dates Next Due COVID-19 mRNA, LNP-s, No Pre serve, 2-Dose Series ([employer]) 05/10/2021,09/09/2020,08/20/2020 Hepatitis B, 20+ yrs 12/10/2014,04/10/2014,10/07 PPD [...] on file documented as of this encounter Plan of Treatment Upcoming Encounters Date Type Department Care Team (Late st Contact Info) Description 09/27/2023 8:50 AM EDT Office Visit Pharmacy, [facility] [address] [place] [address] Pharmacist1, [facility] [address] [place] [address] 09/27/2023 9:20 AM EDT Office Visit [facility] [address] [place] [address] Gloria Skaggs, DO [address] [facility] [place] [address] 10/01/2023 10:20 AM EDT Office Visit [facility] [address] [place] [address] Tatianna Jean PA-C [address] [place] [address] 10/16/2023 1:00 PM EDT Office Visit [facility] [place] [address] [phone] Halley Kilpatrick CRNP [address] [address] 01/31/2024 1:40 PM EDT Office Visit Neurology [facility] [address] [place] [address] Ricardo Reza MD [address] [place] [address] Scheduled Procedures Name Priority Associated Diagnoses Date/Ti me COLONOSCOPY FLEXIBLE PROXIMAL DIAGNOSTIC Recall Screen for colon cancer Health [...] Procedure Name Priority Date/Time Associated Diagnosis Comments MYCODE SST1 Routine 09/18/2023 8:11 AM EST [employer] Other*[id number] MYCODE INITIAL ADULT-2SST Routine 09/18/2023 8:11 AM EST [employer] Other*[id number] MYCODE SUBSEQUENT ADULT Routine 09/18/2023 8:11 AM EST [employer] Other*[id number] PLT Routine 09/18/2023 8:11 AM EST Fatty liver HEPATIC FUNCTION PANEL Routine 09/18/2023 8:11 AM EST Fatty liver PT INR Routine 09/18/2023 8:11 AM EST Fatty liver MAGNESIUM Routine 09/18/2023 8:11 AM EST Encounter for long-term (current) use of medications documented in this encounter Results * MYCODE SST2 (09/18/2023 8:11 AM EST) MyCode Specimen Freezing of extracted DNA, whole blood and/or serum. 09/19/2023 9:01 AM EST [facility] Blood Venous blood specimen / Unknown Venipuncture / Unknown 09/18/2023 8:11 AM EST 09/18/2023 8:15 AM EST Krysta Mcmullen CHRA LAB BLOOD ORDERAB LES Performing Organization Address City/[facility]/ZIP Co de Phone Number LAB[facility]ATORY [facility] [address] [place] [address] * MYCODE SST1 (09/18/2023 8:11 AM EST) Pathologist [facility] MyCode Specimen Freezing of extracted DNA, whole blood and/or serum. 09/19/2023 9:01 AM EST [facility] Blood Venous blood specimen / Unknown Venipuncture / Unknown 09/18/2023 8:11 AM EST 09/18/2023 8:15 AM EST Krystasherrell Mcmullen CHRA LAB BLOOD ORDERAB LES Performing Organization Address [facility] de Phone Number LABORATORY [facility] [address] [place] [address] * HEPATIC FUNCTION PANEL (09/18/2023 8:11 AM EST) [facility] Albumin 4.6 3.8 - 5.0 g/dL 09/18/2023 5:57 PM EST [facility] AST 30 10 - 50 U/L 09/18/2023 5:57 PM EST [facility] Alkaline Phosphatase 98 35 - 130 U/L 09/18/2023 5:57 PM EST [facility] ALT 45 10 - 50 U/L 09/18/2023 5:57 PM EST [facility] Bilirubin, Total 0.5 <=1.2 mg/dL 09/18/2023 5:57 PM EST [facility] Bilirubin, Direct <0.2 0.0 - 0.3 mg/dL 09/18/2023 5:57 PM EST [facility] Protein 6.6 6.0 - 8.3 g/dL 09/18/2023 5:57 PM EST [facility] Blood Venous blood specimen / Unknown Venipuncture / Unknown 09/18/2023 8:11 AM EST 09/18/2023 8:15 AM EST Deborah GUZMAN LAB BLOO D ORDERABLES Performing Organization Address City/[facility]/ZIP Co de Phone Number LABORATORY [facility] [address] [place] [address] * PT INR (09/18/2023 8:11 AM EST) Prothrombin Time 13.0 11.6 - 15.2 seconds 09/18/2023 8:52 PM EST LABORATORY [facility] INR 1.0 0.8 - 1.2 09/18/2023 8:52 PM EST LABORATORY [facility] Blood Venous blood specimen / Unknown Venipuncture / Unknown 09/18/2023 8:11 AM EST 09/18/2023 8:15 AM EST Narrative LABORATORY [facility] - 09/18/2023 8:52 PM EST Warfarin Therapy INR: 2.0-3.0 conventional anticoagulation INR: 2.5-3.5 high intensity anticoagulation Deborah THORNTONNP LAB BLOO D ORDERABLES LABORATORY [facility] [address] [place] [address] * PLT (09/18/2023 8:11 AM EST) PLT 140 140 - 400 K/uL 09/18/2023 8:49 PM EST LABORATORY [facility] Blood Venous blood specimen / Unknown Venipuncture / Unknown 09/18/2023 8:11 AM EST 09/18/2023 8:15 AM EST Deborah THORNTONNP LAB BLOO D ORDERABLES LAB[facility]ATORY [facility] [address] [place] [address] * MAGNESIUM (09/18/2023 8:11 AM EST) Magnesium 1.9 1.5 - 2.6 mg/dL 09/18/2023 5:57 PM EST LABORATORY [facility] Blood Venous blood specimen / Unknown Venipuncture / Unknown 09/18/2023 8:11 AM EST 09/18/2023 8:15 AM EST Zee Fay Danrell [facility] LAB BLOOD ORDERABLES LABORATORY [facility] [address] [place] [address] documented in this encounter Visit Diagnoses Diagnosis [employer] Other*[id number] Encounter for long-term (current) use of medications Encounter for long-term (current) use of other medications Fatty liver Other chronic nonalcoholic liver disease documented in this encounter Care Teams Wirer Relationship Specialty Start Date End Date Gloria Skaggs DO [facility] [place] [address] PCP - General Family Medicine 07/04/19 documented as of this encounter
--- OUTSIDE RECORDS SUMMARY | 2023-10-14 13:09 | External Medical Summary ---
Author Name Unknown Address Unknown Organization K01:LABORATORY [facility] - [address] [place] [address] Laboratory Report Ordering Provider Test Date Status RO ACUNA 09/18/2023 08:11:30 Final Observation Date Value Abnormality Reference (Units ) Status Platelets 09/18/2023 08:11:30 140 140-400 (K /uL) Final Performing Location LABORATORY [facility] - [address] [place] [address]
--- OUTSIDE RECORDS SUMMARY | 2023-10-14 13:09 | External Medical Summary ---
Author Name Unknown Address Unknown Organization K01:LABORATORY [facility] [place] [address] [place] [address] Laboratory Report Ordering Provider Test Date Status RO ACUNA 09/18/2023 08:11:30 Final Warfarin Therapy
INR: 2 .0-3.0 conventional anticoagulation
INR: 2.5- 3.5 high intensity anticoagulation Observation Date Value Abnormality Reference (Units ) Status PT 09/18/2023 08:11:30 13.0 11.6-15.2 (seconds) Final INR 09/18/2023 08:11:30 1.0 0.8-1.2 Final Performing Location LABORATORY [facility] - [address] [place] [address]
--- OUTSIDE RECORDS SUMMARY | 2023-10-14 13:09 | External Medical Summary ---
Author Name Unknown Address Unknown Organization K01:LABORATORY [facility] - [address] [place] [address] Laboratory Report Ordering Provider Test Date Status HARSHIL ACUNAALESHIA 09/18/2023 08:11:30 Final Observation Date Value Abnormality Reference (Units ) Status Albumin 09/18/2023 08:11:30 4.6 3.8-5.0 (g/dL) Final AST (Aspartate aminotransferase) 09/18/2023 08:11:30 30 10-50 (U/L) Final Alk Phos 09/18/2023 08:11:30 98 35-130 (U/L) Final ALT (Alanine aminotransferase) 09/18/2023 08:11:30 45 10-50 (U/L) Final Bilirubin, Total 09/18/2023 08:11:30 0.5 <=1.2 (mg/dL) Final Bilirubin, Direct 09/18/2023 08:11:30 <0.2 0.0-0.3 (mg/dL) Final Protein 09/18/2023 08:11:30 6.6 6.0-8.3 (g/dL) Final Performing Location LAB[facility]ATORY [facility] - [address] [place] [address]
--- OUTSIDE RECORDS SUMMARY | 2023-10-14 13:09 | External Medical Summary | Summary of Care ---
Author Name Unknown Organization [facility] Address [address] [place] [address] Phone [phone] Care Team Providers Care District Home Economics Agent Name Role Phone Gloria Skaggs DO Primary Care Provider Reason for Visit * Reason Onset Date Comments Test Results 09/10/2023 Encounter Details Date Type Department Care Team (Late st Contact Info) Description 09/10/2023 Telephone Gastroenterology, [facility] [address] [place] [address] Deborah Zapien CRNP [address] [place] [id number] Test Results Allergies Active Allergy Reactions Criticality Noted Date Comments Chlorpromazine 05/09/2016 aggitation Cyclobenzaprine Low 12/17/2020 Other reaction(s): RASH Valproic Acid 05/09/2016 "unable to function" Ziprasidone Hydrochloride 02/23/2010 Tramadol Low 12/17/2020 Other reaction(s): RASH Ziprasidone High 12/17/2020 Other reaction(s): FACIAL SWELLING; RASH documented as of this encounter (statuses as of 09/21/2023) Medications Medication Sig Dispensed Refills Start Date [...] 9 Each 3 11/14/2022 Active Dexcom G7 Personal Assistant DeviceIndications:Ty pe 2 diabetes mellitus with hemoglobin [...] 100 Each 3 01/11/2023 Active Dexcom G7 Personal Assistant Device USE TO READ DEXCOM G7 CGM DIRECTED 1 Each 0 11/14/2022 11/14/2023 Active Dexcom G7 Sensor USE TO READ BLOOD GLUCOSE. CHANGE EVERY 10 DAYS 9 Each 3 11/14/2022 11/14/2023 Active Insulin Lispro (1 Unit Dial) 100 UNIT/ML Subcutaneous Solution Pen-injector (HumaLOG KwikPen)Indications: Type 2 diabetes mellitus with hemoglobin A1c goal of less than 7.0% ([facility]) Inject 3 Units under the skin 2 [...] as of this encounter (statuses as of 09/21/2023) Active Problems Problem Noted Date Diagnosed Date [...] as of this encounter (statuses as of 09/21/2023) Resolved Problems Problem Noted Date Diagnosed Date [...] as of this encounter (statuses as of 09/21/2023) Immunizations Name Administration Dates Next Due COVID-19 mRNA, LNP-s, No Pre serve, 2-Dose Series ([employer]) 05/10/2021,09/09/2020,08/20/2020 Hepatitis B, 20+ yrs 12/10/2014,04/10/2014,10/07 PPD [...] 09/27/2023 8:50 AM EDT Office Visit Pharmacy, [facility] [address] [facility] [place] [address] Pharmac[place]1, [facility] [address] [place] [address] 09/27/2023 9:20 AM EDT Office Visit [facility] [address] [facility] [place] [address] Gloria Skaggs, [address] [facility] [place] [address] 10/01/2023 10:20 AM EDT Office Visit [facility] [address] [facility] [place] [address] Tatianna Jean PA-C [address] [facility] [place] [address] 10/16/2023 1:00 PM EDT Office Visit [facility] [address] [place] [phone] Halley Kilpatrick CRNP [address] [place] [address] 01/31/2024 1:40 PM EDT Office Visit Neurology [facility] [address] [facility] [place] [address] Ricardo Reza MD [address] [place] [address] Scheduled Orders Name Type Priority [...] Cirrhosis of liver without mention of alcohol documented in this encounter Care Teams District Home Economics Agent Relationship Specialty Start Date End Date Gloria Skaggs DO [address] [place] [address] PCP - General Family Medicine 07/04/19 documented as of this encounter
--- OUTSIDE RECORDS SUMMARY | 2023-10-14 13:09 | External Medical Summary ---
Author Name Unknown Address Unknown Organization K01:[facility] [address] [place] [address] Laboratory Report Ordering Provider Test Date Status KING HO 09/18/2023 08:11:30 Final Observation Date Value Abnormality Reference (Units ) Status Magnesium 09/18/2023 08:11:30 1.9 1.5-2.6 (m g/dL) Final Performing Location [facility] [address] [place] [address]
--- OUTSIDE RECORDS SUMMARY | 2023-10-14 13:09 | External Medical Summary | Summary of Care ---
Author Name Unknown Organization [facility] Address [address] [place] [address] Phone [phone] Care Team Providers Care Garden Machinery Mechanic Name Role Phone Gloria Skaggs DO Primary Care Provider Reason for Visit * Reason Comments Outpatient Testing Encounter Details Date Type Department Care Team (Late st Contact Info) Description 09/18/2023 8:30 AM EST Laboratory Laboratory, [place] [address] [place] [id number] [facility] [address] [place], [place] [id number] [employer] Other*[id number]; Encounter for long-term (current) use of medications; Fatty liver Allergies Active Allergy Reactions Criticality Noted Date Comments Chlorpromazine 05/09/2016 aggitation Cyclobenzaprine Low 12/17/2020 Other reaction(s): RASH Valproic Acid 05/09/2016 "unable to function" Ziprasidone Hydrochloride 02/23/2010 Tramadol Low 12/17/2020 Other reaction(s): RASH Ziprasidone High 12/17/2020 Other reaction(s): FACIAL SWELLING; RASH documented as of this encounter (statuses as of 09/18/2023) Medications Medication Sig Dispensed Refills Start Date [...] 9 Each 3 11/14/2022 Active Dexcom G7 Fashion Designer DeviceIndications:Ty pe 2 diabetes mellitus with hemoglobin [...] hemoglobin A1c goal of less than 7.0% ([facility]) Use to wipe skin prior to placing continuous glucose monitor. 100 Each 3 01/11/2023 Active Dexcom G7 Fashion Designer Device USE TO READ DEXCOM G7 CGM DIRECTED 1 Each 0 11/14/2022 11/14/2023 Active Dexcom G7 Sensor USE TO READ BLOOD GLUCOSE. CHANGE EVERY 10 DAYS 9 Each 3 11/14/2022 11/14/2023 Active Insulin Lispro (1 Unit Dial) 100 UNIT/ML Subcutaneous Solution Pen-injector (HumaLOG KwikPen)Indications: Type 2 diabetes mellitus with hemoglobin A1c goal of less than 7.0% ([facility]) Inject 3 Units under the skin 2 [...] hemoglobin A1c goal of less than 7.0% ([facility]) Inject 4.5 mg under the [...] hemoglobin A1c goal of less than 7.0% ([facility]) TEST BLOOD SUGAR FOUR TIMES [...] hemoglobin A1c goal of less than 7.0% ([facility]) TEST BLOOD SUGAR FOUR TIMES [...] as of this encounter (statuses as of 09/18/2023) Active Problems Problem Noted Date Diagnosed Date [...] as of this encounter (statuses as of 09/18/2023) Resolved Problems Problem Noted Date Diagnosed Date [...] as of this encounter (statuses as of 09/18/2023) Immunizations Name Administration Dates Next Due COVID-19 mRNA, LNP-s, No Pre serve, 2-Dose Series ([employer]) 05/10/2021,09/09/2020,08/20/2020 Hepatitis B, 20+ yrs 12/10/2014,04/10/2014,10/07 PPD [...] 09/27/2023 8:50 AM EDT Office Visit Pharmacy, [facility] [address] [facility] [place] [address] Pharmacist1, [facility] [address] [facility] [place] [address] 09/27/2023 9:20 AM EDT Office Visit Family Practice [facility] [address] [place] [address] Gloria Skaggs, DO [address] [facility] [place] [address] 10/16/2023 1:00 PM EDT Office [facility] [address] [facility] [place] [phone] Hal[facility]patrick [facility]NP [address] [address] 01/31/2024 1:40 PM EDT Office Visit Neurology [facility] [address] [place] [address] Ricardo Reza MD [address] [facility] [address] Pending Results Name Type Priority Associated Diagnoses Date /Time MYCODE SUBSEQUENT ADULT Lab Routine [employer] Other*[id number] 09/18/2023 8:11 AM EST MAGNESIUM Lab Routine Encounter for long-term (current) use of medications 09/18/2023 8:11 AM EST PLT Lab Routine Fatty liver 09/18/2023 8:11 AM EST PT INR Lab Routine Fatty liver 09/18/2023 8:11 AM EST HEPATIC FUNCTION PANEL Lab Routine Fatty liver 09/18/2023 8:11 AM EST MYCODE SST1 Lab Routine [employer] Other*[id number] 09/18/2023 8:11 AM EST MYCODE SST2 Lab Routine [employer] Other*[id number] 09/18/2023 8:11 AM EST Scheduled Procedures Name Priority Associated Diagnoses [...] as of this encounter Visit Diagnoses Diagnosis [employer] Other*[id number] Encounter for long-term (current) use of medications Encounter for long-term (current) use of other medications Fatty liver Other chronic nonalcoholic liver disease documented in this encounter Care Teams Garden Machinery Mechanic Relationship Specialty Start Date End Date Gloria Skaggs DO [address] [place] [address] PCP - General Family Medicine 07/04/19 documented as of this encounter
--- NOTE | 2023-10-14 13:24 | Emergency Department Note ---
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 trauma Qualifiers: Encounter type: initial encounter Qualified Code(s): S09.90XA - Unspecified injury of head, initial encounter
[2023-10-14] MEDS: SODIUM CHLORIDE 0.9% 1,000 ML IV SCH (13:31)
[2023-10-14] MEDS: ACETAMINOPHEN 1,000 MG/100 ML VIAL IV STA (13:32)
[2023-10-14] MEDS: MoRPHine SULFATE 4 MG/ML 1 ML CARP\\VIAL IV STA (13:32)
[2023-10-14] MEDS: ONDANSETRON INJ 2 MG/ML 2 ML VIAL IV STA (13:32)
[2023-10-14 13:35] LABS: Basophils # (auto) 0.03 K/uL (0.00-0.20); Basophils % (auto) 0.5 %; Eosinophils # (auto) 0.03 K/uL (0.00-0.50); Eosinophils % (auto) 0.5 %; Hematocrit (blood only) 52.5 % (42.0-52.0); Hemoglobin 18.7 g/dl (14.0-18.0); Immature Granulocytes # (auto) 0.04 K/uL (0.01-0.20); Immature Granulocytes % (auto) 0.6 %; Lymphocytes # (auto) 1.04 K/uL (1.20-3.40); Lymphocytes % (auto) 16.3 %; Mean Corpuscular Hemoglobin 29.7 pg (25.0-34.0); Mean Corpuscular Hgb Conc 35.6 g/dL (32.0-36.0); Mean Corpuscular Volume 83.3 fL (80.0-100.0); Mean Platelet Volume 9.7 fL (9.4-12.4); Monocytes # (auto) 0.35 K/uL (0.11-0.59); Monocytes % (auto) 5.5 %; Neutrophils # (auto) 4.88 K/uL (1.40-6.50); Neutrophils % (auto) 76.6 %; Platelet Count 147 K/uL (130-400); RDW Coefficient of Variation 11.8 % (11.5-14.5); RDW Standard Deviation 35.6 fL (36.4-46.3); White Blood Count 6.37 K/ul (4.8-10.8)
[2023-10-14 13:38] LABS: iSTAT Creatinine 0.8 mg/dl (0.6-1.3); iSTAT Ionized Calcium 1.23 mmol/l (1.12-1.32); iSTAT Potassium 4.2 mmol/L (3.3-5.0)
[2023-10-14 14:01] LABS: Albumin Globulin Ratio 1.5 (0.9-2); Albumin Level 4.9 gm/dl (3.4-5.0); Bilirubin,Total 0.7 mg/dl (0.2-1.0); Calcium 9.8 mg/dl (8.6-10.3); Creatinine Clr Calc Pharmacy 122.1 ml/min; Est GFR (African American) 112.9 ml/min; Est GFR (Non-African American) 97.4 ml/min; Globulin 3.2 gm/dl (2.5-4.0); Magnesium 1.9 mg/dl (1.7-2.4); Potassium 4.1 mmol/L (3.5-5.1); Total Protein 8.1 gm/dl (6.0-8.3); Troponin I High Sensitivity 4.6 pg/ml (0-20)
--- NOTE | 2023-10-14 14:06 | XRay Report ---
SINGLE VIEW CHEST CLINICAL HISTORY: Generalized weakness. Fall. FINDINGS: An AP, portable, semierect chest radiograph is compared to study dated 06/24/2023 and corre lated with chest CT dated 04/07/2016. The examination is degraded by portable technique and apical uli dotic positioning. The cardiomediastinal silhouette is unremarkable. There is mild bibasilar scarring /atelectasis. The lungs and pleural spaces are otherwise clear. No pneumothorax is seen. The bony tho rax is grossly intact. IMPRESSION: No acute cardiopulmonary abnormality. ACT 112: Negative or not required by law. Electronically signed by: Randall Martínez M.D. 10/14/2023 2:05 PM
[2023-10-14 14:11] LABS: Thyroid Stimulating Hormone 1.565 uIu/ml (0.300-4.500)
[2023-10-14] MEDS: NovoLIN-R INSULIN PER UNIT CHARGE IV STA (14:21)
[2023-10-14] MEDS: SODIUM CHLORIDE 0.9% 1,000 ML IV ONE (14:26)
[2023-10-14] MEDS: OPTIRAY 320 100ml IV ONE (14:48)
--- NOTE | 2023-10-14 14:59 | CT Scan Report ---
CT SCAN OF THE BRAIN WITHOUT IV CONTRAST CLINICAL HISTORY: Fall. COMPARISON STUDY: CT of the brain dated 09/24/2019. TECHNIQUE: Unenhanced axial CT scan of the brain is performed from the vertex to the skull base. A do se lowering technique was utilized adhering to the principles of ALARA. FINDINGS: Brain parenchyma: There is age-related involutional change noting minimal microangiopathic disease. T here is no hemorrhage, mass effect, or evidence of acute territorial ischemia by CT criteria. Sherwood-wh ite matter differentiation is preserved. No extra-axial fluid collection is seen. Ventricles, sulci, cisterns: Prominent secondary to involutional change. Intracranial vasculature: The intracranial vessels at the skull base are normal as visualized. Calvarium: There is no depressed calvarial fracture. Sinuses and mastoids: The visualized paranasal sinuses are clear. The mastoid air cells are well pneu matized. Orbits: The bony orbits are grossly intact. IMPRESSION: There is no hemorrhage, mass effect, or evidence of acute territorial ischemia by CT josh erickson. ACT 112: Negative or not required by law. Electronically signed by: Randall Martínez M.D. 10/14/2023 2:57 PM
--- NOTE | 2023-10-14 15:21 | CT Scan Report ---
CERVICAL SPINE CT CT DOSE: HISTORY: fall TECHNIQUE: Multiaxial CT images of the cervical spine were performed and reformatted in the sagittal and coronal plane without the use of contrast. A dose lowering technique was utilized adhering to e principles of ALARA. COMPARISON: Cervical spine CT 07/19/2016. FINDINGS: No fractures. No subluxation. Prevertebral soft tissues and the C1-C2 interval are intact. No pneumothorax. IMPRESSION: No fractures within the cervical spine. ACT 112: Negative or not required by law. Electronically signed by: Gabriele Duenas M.D. 10/14/2023 3:19 PM
--- NOTE | 2023-10-14 15:25 | CT Scan Report ---
CT thoracic spine w con CT DOSE: 4050.43 mGy.cm CLINICAL HISTORY: fall, pain neck pain. TECHNIQUE: Multiaxial CT images of the thoracic spine were performed following the intravenous admini stration of contrast and reformatted in the sagittal and coronal planes. A dose lowering technique w as utilized adhering to the principles of ALARA. COMPARISON STUDY: None. FINDINGS: No fracture or subluxation within the thoracic spine. Mild degenerative disc disease within the thoracic spine. Prevertebral soft tissues are unremarkable. No significant central canal narrowi ng by CT technique. IMPRESSION: No fracture or subluxation within the thoracic spine. ACT 112: Negative or not required by law. Electronically signed by: Gabriele Duenas M.D. 10/14/2023 3:23 PM
--- NOTE | 2023-10-14 15:27 | CT Scan Report ---
CT SCAN OF THE ABDOMEN AND PELVIS WITH IV CONTRAST CLINICAL HISTORY: Fall. Left upper quadrant abdominal pain. COMPARISON STUDY: Abdominal CT dated 05/01/2023. TECHNIQUE: Following the IV administration of 95 cc of Optiray 320, CT scan of the abdomen and pelvi s is performed from the lung bases to the proximal femora. Images are reviewed in the axial, sagittal , and coronal planes. IV contrast was administered without complication. A dose lowering technique wa s utilized adhering to the principles of ALARA. FINDINGS: Lung bases: The heart is top normal in size and without pericardial effusion. There are trace pleural effusions. The lung bases are otherwise clear noting dependent scarring/atelectasis. A small hiatal hernia is noted. Liver: The contrast-enhanced liver is normal in size and demonstrates diffusely diminished attenuatio n indicating steatosis. Nodularity of the hepatic surface contour indicates morphologic changes of ci rrhosis. There is no intrahepatic biliary ductal dilatation. The hepatic veins and portal veins are p atent. Gallbladder: Surgically absent noting clips in the gallbladder fossa. Spleen: The spleen is enlarged measuring 17.4 cm in length. Pancreas: Unremarkable. Adrenal glands: Unremarkable. Kidneys: The contrast enhanced kidneys are normal in size and without hydronephrosis. The kidneys enh ance symmetrically. Abdominal vasculature: The abdominal aorta is normal in course and caliber. Bowel: There is moderate colonic fecal retention. No bowel obstruction is seen. The appendix is well -visualized and normal. Peritoneum: There is no intraperitoneal free air or abdominal ascites. Lymphadenopathy: None. Pelvic viscera: The prostate gland is enlarged and heterogeneous. The bladder wall is thickened/trabe culated indicating chronic outlet obstruction. Skeletal structures: There are acute left anterior 6th through 9th rib fractures. The lumbosacral spi ne, bony pelvis, and proximal femora appear intact. No lytic or blastic lesions are seen. IMPRESSION: 1. Acute left anterior rib fractures as above. 2. There is no evidence of solid organ injury in the abdomen or pelvis. 3. The liver is steatotic and shows morphologic change of cirrhosis 4. Splenomegaly. 5. Trace pleural effusions. 6. Additional findings as above. ACT 112: Negative or not required by law. Electronically signed by: Randall Martínez M.D. 10/14/2023 3:25 PM
--- NOTE | 2023-10-14 15:29 | CT Scan Report ---
CHEST CT WITH CONTRAST CT DOSE: HISTORY: fall, left rib pain TECHNIQUE: Multiaxial CT images of the chest were performed following the intravenous administration of contrast. A dose lowering technique was utilized adhering to the principles of ALARA. COMPARISON: Chest CT 04/07/2016. FINDINGS: Nondisplaced left anterior sixth through ninth rib fractures. No additional fractures withi n the chest. Normal thyroid gland. Normal esophagus. Trace pericardial effusion. No significant pleur al effusions. The visualized abdominal structures will be reported on the same day abdomen and pelvis CT. Normal caliber thoracic aorta with no evidence for a dissection. No mediastinal hematoma or lymp hadenopathy identified. The heart is normal in size. The central pulmonary arteries are patent. No pn eumothorax. The central airways are patent. Mild dependent changes seen within the lung bases. Subcen timeter linear density within the right upper lobe on image 77 remains stable and favors scarring. St able subpleural nodules along the right major fissure measuring up to 4 mm. These are likely benign. IMPRESSION: 1. Nondisplaced left anterior sixth through ninth rib fractures. 2. No pneumothorax. 3. The abdominal structures will be reported separately. ACT 112: Negative or not required by law. Electronically signed by: Gabriele Duenas M.D. 10/14/2023 3:28 PM
--- NOTE | 2023-10-14 17:05 | History & Physical Report ---
Date of Service October 14, 2023 Assessment & Plan (1) Fall: Plan: This is a 53 y/o male with insulin-requiring DM2, schizoaffective disorder, bipolar d/o, Factor V Leiden mutation, diabetic polyneuropathy, PTSD, NAFLD, HTN, KIMBERLEY, dyslipidemia. and other history as outlined who presented to the ED today s/p fall at home. Pt reports a loss of consciousness for several minutes but denies seizure-like activity, incontinence. Work-up in the ED revealed multiple left rib fractures but was otherwise negative for acute injury. Please see the physician addendum for details of the plan. - Monitor on telemetry overnight - Check orthostatic vital signs - ECHO - PT/OT evaluations, fall precautions (2) Left rib fracture: Plan: Pain control with scheduled acetaminophen and lidocaine patch. PRN oxycodone for severe pain. (3) Syncope and collapse: (4) Essential hypertension: Plan: Holding lisinopril for now Check orthostatics (5) Dyslipidemia: Plan: Chronic, stable Continue statin (6) GERD without esophagitis: Plan: Chronic, stable Continue PPI and H2 ron (7) PTSD (post-traumatic stress disorder): (8) Bipolar disorder, in partial remission, most recent episode depressed: (9) KIMBERLEY (generalized anxiety disorder): (10) Paranoid schizophrenia: (11) Diabetic polyneuropathy: Plan Pt seen and reviewed with attending physician, Dr. Flores. Plan of care discussed and as outlined above and in her note. Code status: Full code DVT Prophylaxis: Lovenox Dispo: anticipate d/c back to [facility] in 1-2 days Katelyn Booker PA-C History of Present Illness Chief Complaint: Fall, rib pain Primary Care Provider: Gloria Skaggs, This is a 53 y/o male with insulin-requiring DM2, schizoaffective disorder, bipolar d/o, Factor V Leiden mutation, diabetic polyneuropathy, PTSD, NAFLD, HTN, KIMBERLEY, dyslipidemia. and other history as outlined who presented to the ED today s/p fall at home. Pt was attempting to cook Easter dinner, bent over to get something, and then passed out. He reports he was told that was unconscious for about 15 minutes. EMS reported that pt initially seemed confused but this cleared on the way in. He was complaining of some left rib pain. He denies chest pain, palpitations, shortness of breath, vision changes, N/V/D, abdominal pain. He does not think that this has happened before although review of his outpatient chart shows that his lisinopril was just decreased due to lightheadedness. Pt reports that he uses a DexCom to monitor his sugars, which have been between 225-305 on average. He took his Lantus last night as prescribed. He was originally to be discharged back to [facility] where he resides but the staff there requested that pt be observed overnight to ensure his pain is controlled and he's stable before being sent back. Allergies Allergy/AdvReac Type Severity Reaction Status Date / Time ziprasidone Allergy Severe FACIAL Verified 10/30/21 23:32 SWELLING; RASH chlorpromazine Allergy Mild RASH Verified 10/30/21 23:32 cyclobenzaprine Allergy Mild RASH Verified 10/30/21 23:32 tramadol Allergy Mild RASH Verified 10/30/21 23:32 valproic acid AdvReac Severe NEURO Verified 10/30/21 23:32 DEFICITS Home Medications Medication Instructions Recorded Confirmed Type atorvastatin 10 mg tablet 10 mg PO QAM 10/30/21 10/14/23 History benztropine 2 mg tablet 2 mg PO HS MOOD DISORDER 10/30/21 10/14/23 History docusate sodium 100 mg tablet 100 mg PO BID 10/30/21 10/14/23 History dulaglutide 4.5 mg/0.5 mL 4.5 mg subcut WE 10/30/21 10/14/23 History subcutaneous pen injector (Trulicity) hydroxyzine HCl 25 mg tablet 25 mg PO HS 10/30/21 10/14/23 History hydroxyzine HCl 50 mg tablet 100 mg PO HS 10/30/21 10/14/23 History insulin glargine 100 unit/mL (3 50 unit subcut HS 10/30/21 10/14/23 History mL) subcutaneous pen (Lantus Solostar U-100 Insulin) lamotrigine 100 mg tablet 150 mg PO BID 10/30/21 10/14/23 History lisinopril 2.5 mg tablet 2.5 mg PO QAM 10/30/21 10/14/23 History metformin 1,000 mg tablet 1,000 mg PO QAM 10/30/21 10/14/23 History polyethylene glycol 3350 17 gram 17 g PO BID Constipation 10/30/21 10/14/23 History oral powder packet (Miralax) prazosin 2 mg capsule 4 mg PO QAM 10/30/21 10/14/23 History prazosin 2 mg capsule 6 mg PO HS 10/30/21 10/14/23 History sumatriptan succinate 100 mg tablet 100 mg PO DIRECTED PRN Migraine 10/30/21 10/14/23 History Headache tizanidine 4 mg tablet 4 mg PO HS 10/30/21 10/14/23 History aripiprazole (2 month) 960 mg/3.2 960 mg IM Q8WK 06/24/23 10/14/23 History mL susp, extended rel IM syringe (Abilify Asimtufii) famotidine 40 mg tablet 40 mg PO HS 10/14/23 10/14/23 History gabapentin 300 mg capsule 300 mg PO TID 10/14/23 10/14/23 History haloperidol 10 mg tablet 10 mg PO HS 10/14/23 10/14/23 History insulin lispro 100 unit/mL 4 unit subcut BIDWMEAL 10/14/23 10/14/23 History subcutaneous pen (Humalog KwikPen (U-100) Insulin) linaclotide 290 mcg capsule 290 mcg PO QAM 10/14/23 10/14/23 History (Linzess) mirtazapine 15 mg tablet 15 mg PO HS 10/14/23 10/14/23 History nortriptyline 25 mg capsule 25 mg PO HS 10/14/23 10/14/23 History pantoprazole 40 mg tablet,delayed 40 mg PO QAM 10/14/23 10/14/23 History release sucralfate 1 gram tablet 1 g PO ACHS 10/14/23 10/14/23 History Past Med/Surg History Medical History (Updated 10/14/23 @ 18:13 by Lolis Booker PA-C) Diabetic polyneuropathy Factor VII deficiency Paranoid schizophrenia KIMBERLEY (generalized anxiety disorder) Bipolar disorder, in partial remission, most recent episode depressed PTSD (post-traumatic stress disorder) GERD without esophagitis Dyslipidemia Diabetes mellitus with hyperglycemia, with long-term current use of insulin Essential hypertension Mesenteric panniculitis Acute GI bleeding Intractable abdominal pain Homicidal ideation Head injury Colitis Bronchitis Ileus Pneumonia Hyponatremia DKA (diabetic ketoacidoses) Family History Other No significant family history Social History Smoking Status: Never smoker Tobacco Type: Smokeless Tobacco (Dip or Chew) Do You Dip or Chew Tobacco: Yes; Hx Alcohol Use: No Hx Substance Use: No Preferred Language: Citizen Of [place] Communication Ability: Effective Mechanical Adjuster Required: No Beliefs That Will Affect Care: None Current Living Situation: Senior Living Current Living Situation Comment: [facility] Feels Safe at Home: Yes Assistive Devices: None Review of Systems Review of Systems: All systems reviewed & are unremarkable except as noted in HPI & below Constitutional: no fever, no chills and no anorexia Eyes: no diplopia and no worsening vision Ear, Nose, Mouth, Throat: no nasal congestion, no nasal discharge and no sore throat Respiratory: no cough and no dyspnea Cardiovascular: + lightheadedness and + syncope; no ches t pain and no palpitations Gastrointestinal: no abdominal pain, no nausea, no vomiting and no diarrhea/loose stools Genitourinary: no dysuria or no urinary frequency Musculoskeletal: + problem reported (left rib pain) Integumentary: no rash and no yellowing of the skin Neurologic: as per Subjective / HPI Physical Exam Physical Exam: For details of the physical exam, please see the physician addendum Results & Data Results & Data Vital Signs (Past 12 Hours) Vital Signs Temp Pulse Pulse Resp BP BP Pulse Ox 10/14/23 15:27 98 H 18 116/77 93 10/14/23 15:09 78 20 115/72 98 10/14/23 15:09 68 96 10/14/23 13:30 116 H 15 96 10/14/23 13:30 127/92 10/14/23 13:17 110 H 10/14/23 13:15 36.9 C 106 H 20 127/94 96 O2 Del Method 10/14/23 15:27 Room Air 10/14/23 15:09 Room Air 10/14/23 15:09 Room Air 10/14/23 13:30 Room Air 10/14/23 13:30 10/14/23 13:17 10/14/23 13:15 Room Air Laboratory Results Laboratory Results - last 24 hr 10/14/23 10/14/2310/13/24 13:17 13:25 15:04 WBC 6.37 RBC 6.30 H Hgb 18.7 H POC Hgb 18.0 Hct 52.5 H POC Hct 53 H MCV 83.3 MCH 29.7 MCHC 35.6 RDW Std Deviation 35.6 L RDW Coeff of Mariama 11.8 Plt Count 147 MPV 9.7 Immature Gran % (Auto) 0.6 Neut % (Auto) 76.6 Lymph % (Auto) 16.3 Appling % (Auto) 5.5 Eos % (Auto) 0.5 Baso % (Auto) 0.5 Neut # (Auto) 4.88 Lymph # (Auto) 1.04 L Appling # (Auto) 0.35 Eos # (Auto) 0.03 Baso # (Auto) 0.03 Immature Gran # (Auto) 0.04 POC Sodium 135 Sodium 132 L POC Potassium 4.2 Potassium 4.1 POC Chloride 96 L Chloride 97 L Carbon Dioxide 26 POC Total CO2 26 Anion Gap 9 POC Anion Gap 19.0 POC BUN 5 L BUN 7 Creatinine 0.88 POC Creatinine 0.8 Est Cr Clr Drug Dosing 122.1 Est GFR ( Amer) 112.9 Est GFR (Non-Af Amer) 97.4 BUN/Creatinine Ratio 8.0 L Glucose 346 H* POC Glucose 253 H POC Glucose (other) 345 H Calcium 9.8 POC Ioniz Calcium Bridget 1.23 Magnesium 1.9 Total Bilirubin 0.7 AST 49 H ALT 51 Alkaline Phosphatase 102 Troponin I High Sens 4.6 Total Protein 8.1 Albumin 4.9 Globulin 3.2 Albumin/Globulin Ratio 1.5 TSH 1.565 Urine Color Urine Appearance Urine pH Ur Specific [place] Urine Protein Urine Glucose (UA) Urine Ketones Urine Blood Urine Nitrite Urine Bilirubin Urine Urobilinogen Ur Leukocyte Esterase Ethyl Alcohol mg/dL < 10.0 10/14/23 10/14/23 15:26 16:45 WBC RBC Hgb POC Hgb Hct POC Hct MCV MCH MCHC RDW Std Deviation RDW Coeff of Mariama Plt Count MPV Immature Gran % (Auto) Neut % (Auto) Lymph % (Auto) Appling % (Auto) Eos % (Auto) Baso % (Auto) Neut # (Auto) Lymph # (Auto) Appling # (Auto) Eos # (Auto) Baso # (Auto) Immature Gran # (Auto) POC Sodium Sodium POC Potassium Potassium POC Chloride Chloride Carbon Dioxide POC Total CO2 Anion Gap POC Anion Gap POC BUN BUN Creatinine POC Creatinine Est Cr Clr Drug Dosing Est GFR ( Amer) Est GFR (Non-Af Amer) BUN/Creatinine Ratio Glucose POC Glucose POC Glucose (other) Calcium POC Ioniz Calcium Bridget Magnesium Total Bilirubin AST ALT Alkaline Phosphatase Troponin I High Sens 5.6 Total Protein Albumin Globulin Albumin/Globulin Ratio TSH Urine Color Pending Urine Appearance Pending Urine pH Pending Ur Specific [place] Pending Urine Protein Pending Urine Glucose (UA) Pending Urine Ketones Pending Urine Blood Pending Urine Nitrite Pending Urine Bilirubin Pending Urine Urobilinogen Pending Ur Leukocyte Esterase Pending Ethyl Alcohol mg/dL Diagnostic Findings Abdomen/Pelvis CT 10/14/23 13:18 CT SCAN OF THE ABDOMEN AND PELVIS WITH IV CONTRAST CLINICAL HISTORY: Fall. Left upper quadrant abdominal pain. COMPARISON STUDY: Abdominal CT dated 05/01/2023. TECHNIQUE: Following the IV administration of 95 cc of Optiray 320, CT scan of the abdomen and pelvis is performed from the lung bases to the proximal femora. Images are reviewed in the axial, sagittal, and coronal planes. IV contrast was administered without complication. A dose lowering technique was utilized adhering to the principles of ALARA. FINDINGS: Lung bases: The heart is top normal in size and without pericardial effusion. There are trace pleural effusions. The lung bases are otherwise clear noting dependent scarring/atelectasis. A small hiatal hernia is noted. Liver: The contrast-enhanced liver is normal in size and demonstrates diffusely diminished attenuation indicating steatosis. Nodularity of the hepatic surface contour indicates morphologic changes of cirrhosis. There is no intrahepatic biliary ductal dilatation. The hepatic veins and portal veins are patent. Gallbladder: Surgically absent noting clips in the gallbladder fossa. Spleen: The spleen is enlarged measuring 17.4 cm in length. Pancreas: Unremarkable. Adrenal glands: Unremarkable. Kidneys: The contrast enhanced kidneys are normal in size and without hydronephrosis. The kidneys enhance symmetrically. Abdominal vasculature: The abdominal aorta is normal in course and caliber. Bowel: There is moderate colonic fecal retention. No bowel obstruction is seen. The appendix is well-visualized and normal. Peritoneum: There is no intraperitoneal free air or abdominal ascites. Lymphadenopathy: None. Pelvic viscera: The prostate gland is enlarged and heterogeneous. The bladder wall is thickened/trabeculated indicating chronic outlet obstruction. Skeletal structures: There are acute left anterior 6th through 9th rib fractures. The lumbosacral spine, bony pelvis, and proximal femora appear intact. No lytic or blastic lesions are seen. IMPRESSION: 1. Acute left anterior rib fractures as above. 2. There is no evidence of solid organ injury in the abdomen or pelvis. 3. The liver is steatotic and shows morphologic change of cirrhosis 4. Splenomegaly. 5. Trace pleural effusions. 6. Additional findings as above. ACT 112: Negative or not required by law. Electronically signed by: Randall Martínez M.D. 10/14/2023 3:[address] 10/14/23 13:[address] DOSE: HISTORY: fall TECHNIQUE: Multiaxial CT images of the cervical spine were performed and reformatted in the sagittal and coronal plane without the use of contrast. A dose lowering technique was utilized adhering to the principles of ALARA. COMPARISON: Cervical spine CT 07/19/2016. FINDINGS: No fractures. No subluxation. Prevertebral soft tissues and the C1-C2 interval are intact. No pneumothorax. IMPRESSION: No fractures within the cervical spine. ACT 112: Negative or not required by law. Electronically signed by: Gabriele Duenas M.D. 10/14/2023 3:[address] 10/14/23 13:[address] WITH CONTRAST CT DOSE: HISTORY: fall, left rib pain TECHNIQUE: Multiaxial CT images of the chest were performed following the intravenous administration of contrast. A dose lowering technique was utilized adhering to the principles of ALARA. COMPARISON: Chest CT 04/07/2016. FINDINGS: Nondisplaced left anterior sixth through ninth rib fractures. No additional fractures within the chest. Normal thyroid gland. Normal esophagus. Trace pericardial effusion. No significant pleural effusions. The visualized abdominal structures will be reported on the same day abdomen and pelvis CT. Normal caliber thoracic aorta with no evidence for a dissection. No mediastinal hematoma or lymphadenopathy identified. The heart is normal in size. The central pulmonary arteries are patent. No pneumothorax. The central airways are patent. Mild dependent changes seen within the lung bases. Subcentimeter linear density within the right upper lobe on image 77 remains stable and favors scarring. Stable subpleural nodules along the right major fissure measuring up to 4 mm. These are likely benign. IMPRESSION: 1. Nondisplaced left anterior sixth through ninth rib fractures. 2. No pneumothorax. 3. The abdominal structures will be reported separately. ACT 112: Negative or not required by law. Electronically signed by: Gabriele Duenas M.D. 10/14/2023 3:[address] 10/14/23 13:18 CT SCAN OF THE BRAIN WITHOUT IV CONTRAST CLINICAL HISTORY: Fall. COMPARISON STUDY: CT of the brain dated 09/24/2019. TECHNIQUE: Unenhanced axial CT scan of the brain is performed from the vertex to the skull base. A dose lowering technique was utilized adhering to the principles of ALARA. FINDINGS: Brain parenchyma: There is age-related involutional change noting minimal microangiopathic disease. There is no hemorrhage, mass effect, or evidence of acute territorial ischemia by CT criteria. Sherwood-white matter differentiation is preserved. No extra-axial fluid collection is seen. Ventricles, sulci, cisterns: Prominent secondary to involutional change. Intracranial vasculature: The intracranial vessels at the skull base are normal as visualized. Calvarium: There is no depressed calvarial fracture. Sinuses and mastoids: The visualized paranasal sinuses are clear. The mastoid air cells are well pneumatized. Orbits: The bony orbits are grossly intact. IMPRESSION: There is no hemorrhage, mass effect, or evidence of acute territo rial ischemia by CT criteria. ACT 112: Negative or not required by law. Electronically signed by: Randall Martínez M.D. 10/14/2023 2:[address] 10/14/23 13:18 CT thoracic spine w con CT DOSE: 4050.43 mGy.cm CLINICAL HISTORY: fall, pain neck pain. TECHNIQUE: Multiaxial CT images of the thoracic spine were performed following the intravenous administration of contrast and reformatted in the sagittal and coronal planes. A dose lowering technique was utilized adhering to the principles of ALARA. COMPARISON STUDY: None. FINDINGS: No fracture or subluxation within the thoracic spine. Mild degenerative disc disease within the thoracic spine. Prevertebral soft tissues are unremarkable. No significant central canal narrowing by CT technique. IMPRESSION: No fracture or subluxation within the thoracic spine. ACT 112: Negative or not required by law. Electronically signed by: Gabriele Duenas M.D. 10/14/2023 3:23 PM Chest X-Ray 10/14/23 13:19 SINGLE VIEW CHEST CLINICAL HISTORY: Generalized weakness. Fall. FINDINGS: An AP, portable, semierect chest radiograph is compared to study dated 06/24/2023 and correlated with chest CT dated 04/07/2016. The examination is degraded by portable technique and apical lordotic positioning. The cardiomediastinal silhouette is unremarkable. There is mild bibasilar scarring/atelectasis. The lungs and pleural spaces are otherwise clear. No pneumothorax is seen. The bony thorax is grossly intact. IMPRESSION: No acute cardiopulmonary abnormality. ACT 112: Negative or not required by law. Electronically signed by: Randlal Martínez M.D. 10/14/2023 2:05 PM Medications Administered Discontinued Medications Sodium Chloride (Nss) 1,000 mls @ 999 mls/hr IV .Q1H1M JUSTIN Stop: 10/14/23 14:30 Last Infusion: 10/14/23 14:26 Dose: Infused Documented By: Admin: 10/14/23 13:31 Dose: 999 mls/hr Documented By: MARCELLO Acetaminophen (Ofirmev) 1,000 mg in 100 mls @ 400 mls/hr IV NOW STA Stop: 10/14/23 13:32 Last Infusion: 10/14/23 14:09 Dose: Infused Documented By: Admin: 10/14/23 13:32 Dose: 400 mls/hr Documented By: MARCELLO Sodium Chloride (Nss) 1,000 mls @ 999 mls/hr IV .Q1H1M ONE Stop: 10/14/23 15:14 Last Infusion: 10/14/23 15:31 Dose: Infused Documented By: Admin: 10/14/23 14:26 Dose: 999 mls/hr Documented By: CAR Insulin Human Regular (Novolin-R Insulin Per Unit Charge) 10 units IV NOW STA Stop: 10/14/23 14:03 Last Admin: 10/14/23 14:21 Dose: 10 units Documented By: CAR Co-signed By: BIBI Ioversol (Optiray 320 100ml) 93 ml IV ONCE ONE Stop: 10/14/23 14:48 Last Admin: 10/14/23 14:48 Dose: 93 ml Documented By: JAS Morphine Sulfate (Morphine Sulfate 4 Mg/Ml 1 Ml Carp\Vial) 4 mg IV NOW STA Stop: 10/14/23 13:19 Last Admin: 10/14/23 13:32 Dose: 4 mg Documented By: MARCELLO Ondansetron HCl (Ondansetron Inj 2 Mg/Ml 2 Ml Vial) 4 mg IV NOW STA Stop: 10/14/23 13:19 Last Admin: 10/14/23 13:32 Dose: 4 mg Documented By: MARCELLO Supervising Physician Co-Signing Physician Notes I have seen and discussed the case with the collaborating advanced practitioner. I agree with the above H&P. I have reviewed and confirmed the patients medical history, the findings on physical examination, and the patients diagnosis and treatment plan with Jhony KAUR and agree with the information documented. In short, Mr. Arce is a 53 y/o male with insulin-requiring DM2, schizoaffective disorder, bipolar d/o, Factor V Leiden mutation, diabetic polyneuropathy, PTSD, NAFLD, HTN, KIMBERLEY, dyslipidemia reported to ED due to syncopal episode. No clear prodromal episide. No recent illness. Lisinopril recently reduced 2/2 low BP. Mirtazapine and gabapentin recently added. GENERAL APPEARANCE: AxOx3, generally well-appearing male, non toxic no acute distress. HEENT: NC, AT. MMM. EOMI, clear conjunctiva, oropharynx clear. NECK: Supple without lymphadenopathy. No stiffness or restricted ROM. HEART: Normal rate and regular rhythm, normal S1/S1, no m/r/g LUNGS: CTAB, moving air well. No crackles or wheezes are heard. ABDOMEN: Soft, nontender, nondistended with good bowel sounds heard. BACK: No CVAT, no obvious deformity. EXTREMITIES: Without cyanosis, clubbing or edema. NEUROLOGICAL: Grossly nonfocal. Alert and oriented, moving all 4 extremities. CN not formally tested but appear grossly intact Skin: Warm and dry without any rash. #Syncopal episode -Patient reportedly in good health, until sudden collapse at home, breaking ribs No prodromal symptoms reported, no history of fall, no seizurelike activity, no postictal symptoms, no incontinence -CTA imaging negative ?Polypharmacy, multiple medication adjustments Monitor on telemetry Orthostatic vital signs ECHO s/p 2L IVF in ED Consider OP Holter monitor #Hyperglycemia #Type 2 diabetes mellitus with diabetic polyneuropathy, with long-term current use of insulin ([facility]) Lantus increased to 52 units by PCP, Lispro increased from 3 to 4 units with meals, Continue Trulicity 4.5mg weekly. Metformin with breakfast and dinner (not bedtime) Eye exam scheduled 10/15/23 -Glycemic pharmacy #Schizoaffective disorder, bipolar type ([facility]) #Bipolar disorder, in partial remission, most recent episode depressed ([facility]) #Generalized anxiety disorder #Major depressive disorder with single episode, in partial remission ([facility]) #Post-traumatic stress disorder, chronic Abilify injection q8 weeks , lamictal 150mg BID, haldol 10mg qhs, prazosin 6mg qhs, benztropin, hydroxyzine 25qam/100qpm, nortriptyline 25mg qhs, remeron 15mg qhs Continue above regimen #Bilateral occipital neuralgia Gabapentin 300mg TID Tizanidine 4mg qhs #HTN Lisinopril just decreased at OP office 2/2 weight loss, lightheadedness and low BPS Hold lisinopril given above concerns/syncopal episode #HLD Continue Statin #Factor V Leiden Not on AC #GERD Continue protonix/carafate QID #JEAN pending sleep study DVT ppx I spent a total of 35 minutes coordinating, documenting, and providing care for this patient excluding time spent in the performance of separately billed services. All of the aforementioned completed outside of collaborating with the assigned advanced practitioner for a full treatment plan. I have reviewed the advanced practitioner's documentation, and I agree with, and take responsibility for the plan of care (1) Fall Encounter type: initial encounter Qualified Code(s): W19.XXXA - Unspecified fall, initial encounter (2) Left rib fracture Encounter type: initial encounter Fracture type: closed Rib fracture type: multiple ribs Qualified Code(s): S22.42XA - Multiple fractures of ribs, left side, initial encounter for closed fracture (11) Diabetic polyneuropathy Diabetes mellitus type: type 2 Qualified Code(s): E11.42 - Type 2 diabetes mellitus with diabetic polyneuropathy
[2023-10-14 17:10] LABS: Appearance Urine Clear (Clear); Bacteria Urine Automated Negative (Negative); Bilirubin Urine Negative (Negative); Blood Urine Negative (Negative); Color Urine Dark Yellow; Glucose Urine UA 2+ (Negative); Ketones Urine Negative (Negative); Leukocyte Esterase Urine Negative (Negative); Nitrite Urine Negative (Negative); Specific Gravity Urine > 1.045 (1.000-1.030); Urobilinogen Urine Negative (Negative); pH Urine 7.5 (4.5-7.5)
[2023-10-14] MEDS ORDERED: DEXTROSE 50% 50 ML SYRINGE IV PRN (17:18)
[2023-10-14] MEDS ORDERED: GLUCOSE 10 TAB/TUBE PO PRN (17:18)
[2023-10-14] MEDS ORDERED: GLUCOSE 40% GEL 15 GM TUBE PO PRN (17:18)
[2023-10-14] MEDS ORDERED: GLUCAGON FOR INJ 1 MG VIAL SQ PRN (17:18)
[2023-10-14] MEDS ORDERED: CARBOHYDRATES FOR HYPOGLYCEMIA PO PRN (17:18)
[2023-10-14] MEDS ORDERED: oxyCODONE HCL IR 5 MG TAB (IMMEDIATE RELEASE) PO PRN (17:21)
[2023-10-14 17:25] LABS: Protein Urine Trace (Negative)
[2023-10-14] MEDS: LIDOCAINE 5% 1 PATCH TD SCH (17:56)
[2023-10-14] MEDS ORDERED: SUMAtriptan succinate 100 MG TAB PO PRN (20:19)
[2023-10-14] MEDS ORDERED: hydrOXYzine HCl 25 MG TAB PO SCH (21:00)
[2023-10-14] MEDS: INSULIN ASPART PER UNIT CHARGE SC SCH (22:01)
[2023-10-14] MEDS: LANTUS PER UNIT CHARGE SQ SCH (22:01)
[2023-10-14] MEDS: POLYETHYLENE (MIRALAX) 17 GM PACK PO SCH (22:06)
[2023-10-14] MEDS: PRAZOSIN HCL 1 MG CAP PO SCH (22:07)
[2023-10-14] MEDS: tiZANidine HCL 4 MG TABLET PO SCH (22:08)
[2023-10-14] MEDS: FAMOTIDINE 40 MG TABLET PO SCH (22:08)
[2023-10-14] MEDS: haloperidoL 5 MG TAB PO SCH (22:09)
[2023-10-14] MEDS: GABAPENTIN 300 MG CAP PO SCH (22:09)
[2023-10-14] MEDS: lamoTRIgine 25 MG TAB PO SCH (22:10)
[2023-10-14] MEDS: MIRTAZAPINE TAB 15 MG TAB PO SCH (22:11)
[2023-10-14] MEDS: lamoTRIgine 100 MG TAB PO SCH (22:11)
[2023-10-14] MEDS: BENZTROPINE MESYLATE 1 MG TAB PO SCH (22:12)
[2023-10-14] MEDS: NORTRIPTYLINE HCL 25 MG CAP PO SCH (22:12)
[2023-10-14] MEDS: DOCUSATE SODIUM 100 MG CAP PO SCH (22:12)
[2023-10-14] MEDS: SUCRALFATE 1 GM TAB PO SCH (22:13)
[2023-10-14] MEDS: hydrOXYzine HCl 25 MG TAB PO SCH (22:17)
[2023-10-14] MEDS: ACETAMINOPHEN 500 MG TAB PO SCH (22:17)
[2023-10-15 04:34] LABS: BUN Creatinine Ratio 12.8 (10-20); Calcium 8.4 mg/dl (8.6-10.3); Creatinine Clr Calc Pharmacy 137.8 ml/min; Est GFR (African American) 118.6 ml/min; Est GFR (Non-African American) 102.3 ml/min; Potassium 3.8 mmol/L (3.5-5.1)
[2023-10-15 04:47] LABS: Basophils # (auto) 0.02 K/uL (0.00-0.20); Basophils % (auto) 0.3 %; Eosinophils # (auto) 0.03 K/uL (0.00-0.50); Eosinophils % (auto) 0.5 %; Hematocrit (blood only) 42.1 % (42.0-52.0); Hemoglobin 15.1 g/dl (14.0-18.0); Immature Granulocytes # (auto) 0.02 K/uL (0.01-0.20); Immature Granulocytes % (auto) 0.3 %; Lymphocytes % (auto) 18.1 %; Mean Corpuscular Hgb Conc 35.9 g/dL (32.0-36.0); Mean Corpuscular Volume 83.5 fL (80.0-100.0); Mean Platelet Volume 9.9 fL (9.4-12.4); Monocytes # (auto) 0.38 K/uL (0.11-0.59); Monocytes % (auto) 5.7 %; Neutrophils # (auto) 4.99 K/uL (1.40-6.50); Neutrophils % (auto) 75.1 %; Platelet Count 128 K/uL (130-400); RDW Coefficient of Variation 12.2 % (11.5-14.5); Red Blood Count 5.04 M/uL (4.70-6.10); White Blood Count 6.64 K/ul (4.8-10.8)
[2023-10-15] MEDS: PRAZOSIN HCL 1 MG CAP PO SCH (08:20)
[2023-10-15] MEDS: LINACLOTIDE 145 MCG CAPSULE PO SCH (08:20)
[2023-10-15] MEDS: ATORVASTATIN 10 MG TAB PO SCH (08:22)
[2023-10-15] MEDS: ENOXAPARIN INJ 40 MG/0.4 ML SYR SQ SCH (08:24)
[2023-10-15] MEDS: LANTUS PER UNIT CHARGE SQ SCH (08:24)
[2023-10-15] MEDS: PANTOprazole 40 MG TAB PO SCH (08:26)
[2023-10-15 11:05] LABS: Estimated Average Glucose 189 mg/dl; Hemoglobin A1C 8.2 % (4.5-5.6)
--- NOTE | 2023-10-15 14:11 | Discharge Summary ---
Discharge Summary Date of Service October 15, 2023 Notes For Next Care Provider Patient with recent addition of gabapentin now TID and remeron, as well as meds like prazosin--likelyl combination of polypharmacy with concern for orthostatic involvement. Medication Changes From Visit Discontinue Lisinopril Admission HPI Per Admitting Provider This is a 53 y/o male with insulin-requiring DM2, schizoaffective disorder, bipolar d/o, Factor V Leiden mutation, diabetic polyneuropathy, PTSD, NAFLD, HTN, KIMBERLEY, dyslipidemia. and other history as outlined who presented to the ED today s/p fall at home. Pt was attempting to cook Easter dinner, bent over to get something, and then passed out. He reports he was told that was unconscious for about 15 minutes. EMS reported that pt initially seemed confused but this cleared on the way in. He was complaining of some left rib pain. He denies chest pain, palpitations, shortness of breath, vision changes, N/V/D, abdominal pain. He does not think that this has happened before although review of his outpatient chart shows that his lisinopril was just decreased due to lightheadedness. Pt reports that he uses a DexCom to monitor his sugars, which have been between 225-305 on average. He took his Lantus last night as prescribed. He was originally to be discharged back to [facility] where he resides but the staff there requested that pt be observed overnight to ensure his pain is controlled and he's stable before being sent back. Admission Exam Per Admitting Provider GENERAL APPEARANCE: AxOx3, generally well-appearing male, non toxic no acute distress. HEENT: NC, AT. MMM. EOMI, clear conjunctiva, oropharynx clear. NECK: Supple without lymphadenopathy. No stiffness or restricted ROM. HEART: Normal rate and regular rhythm, normal S1/S1, no m/r/g LUNGS: CTAB, moving air well. No crackles or wheezes are heard. ABDOMEN: Soft, nontender, nondistended with good bowel sounds heard. BACK: No CVAT, no obvious deformity. EXTREMITIES: Without cyanosis, clubbing or edema. NEUROLOGICAL: Grossly nonfocal. Alert and oriented, moving all 4 extremities. CN not formally tested but appear grossly intact Skin: Warm and dry without any rash. Principal Dx & Hospital Course #1 = Principal Diagnosis (1) Fall: (2) Left rib fracture: (3) Syncope and collapse: (4) Essential hypertension: (5) Dyslipidemia: (6) GERD without esophagitis: (7) PTSD (post-traumatic stress disorder): (8) Bipolar disorder, in partial remission, most recent episode depressed: (9) KIMBERLEY (generalized anxiety disorder): (10) Paranoid schizophrenia: (11) Diabetic polyneuropathy: Plan In short, Mr. Arce is a 53 y/o male with insulin-requiring DM2, schizoaffective disorder, bipolar d/o, Factor V Leiden mutation, diabetic polyneuropathy, PTSD, NAFLD, HTN, KIMBERLEY, dyslipidemia reported to ED due to syncopal episode. No clear prodromal episide. No recent illness. Lisinopril recently reduced 2/2 low BP per primary. Mirtazapine and gabapentin recently added. Patients pain controlled on tylenol and lidocaine patch. Pressures are stable without lisinopril, however, given notable polypharmacy it is prudent patient follow with Psychiatry to see if orthostatic medications can be reduced. #Syncopal episode -Patient reportedly in good health, until sudden collapse at home, breaking ribs No prodromal symptoms reported, no history of fall, no seizurelike activity, no postictal symptoms, no incontinence -CTA imaging negative ?Polypharmacy, multiple medication adjustments Monitor on telemetry Orthostatic vital sign WNL ECHO 55-60%, no LVOT QTC 427 s/p 2L IVF in ED Consider OP Holter monitor with PCP, no events on Tele #Hyperglycemia #Type 2 diabetes mellitus with diabetic polyneuropathy, with long-term current use of insulin ([facility]) Lantus increased to 52 units by PCP, Lispro increased from 3 to 4 units with meals, Continue Trulicity 4.5mg weekly. Metformin with breakfast and dinner (not bedtime) Eye exam scheduled 10/15/23 Follow up with PCP for management #Schizoaffective disorder, bipolar type ([facility]) #Bipolar disorder, in partial remission, most recent episode depressed ([facility]) #Generalized anxiety disorder #Major depressive disorder with single episode, in partial remission ([facility]) #Post-traumatic stress disorder, chronic Abilify injection q8 weeks , lamictal 150mg BID, haldol 10mg qhs, prazosin 6mg qhs, benztropin, hydroxyzine 25qam/100qpm, nortriptyline 25mg qhs, remeron 15mg qhs Continue above regimen ' Follow up with Psych to discuss polypharmacy and if able to reduce medications #Bilateral occipital neuralgia Gabapentin 300mg TID Tizanidine 4mg qhs #HTN Lisinopril just decreased at OP office 2/2 weight loss, lightheadedness and low BPS Discontinued lisinopril given above concerns/syncopal episode #HLD Continue Statin #Factor V Leiden Not on AC #GERD Continue protonix/carafate QID #JEAN pending sleep study On day of discharge, patient denied any acute concerns, reports pain is managed, though he is "sore" from fall. He denies any further lightheadedness/dizziness during admission. Discharge Exam Constitutional WD/WN, vitals as above Respiratory normal respiratory effort, lungs clear to auscultation Cardiovascular RRR, no murmur, no edema Updated Medication List Medication Instructions Recorded Confirmed Type atorvastatin 10 mg tablet 10 mg PO QAM 10/30/21 10/14/23 History benztropine 2 mg tablet 2 mg PO HS MOOD DISORDER 10/30/21 10/14/23 History docusate sodium 100 mg tablet 100 mg PO BID 10/30/21 10/14/23 History dulaglutide 4.5 mg/0.5 mL 4.5 mg subcut WE 10/30/21 10/14/23 History subcutaneous pen injector (Trulicity) hydroxyzine HCl 25 mg tablet 25 mg PO HS 10/30/21 10/14/23 History hydroxyzine HCl 50 mg tablet 100 mg PO HS 10/30/21 10/14/23 History insulin glargine 100 unit/mL (3 50 unit subcut HS 10/30/21 10/14/23 History mL) subcutaneous pen (Lantus Solostar U-100 Insulin) lamotrigine 100 mg tablet 150 mg PO BID 10/30/21 10/14/23 History metformin 1,000 mg tablet 1,000 mg PO QAM 10/30/21 10/14/23 History polyethylene glycol 3350 17 gram 17 g PO BID Constipation 10/30/21 10/14/23 History oral powder packet (Miralax) prazosin 2 mg capsule 4 mg PO QAM 10/30/21 10/14/23 History prazosin 2 mg capsule 6 mg PO HS 10/30/21 10/14/23 History sumatriptan succinate 100 mg tablet 100 mg PO DIRECTED PRN Migraine 10/30/21 10/14/23 History Headache tizanidine 4 mg tablet 4 mg PO HS 10/30/21 10/14/23 History aripiprazole (2 month) 960 mg/3.2 960 mg IM Q8WK 06/24/23 10/14/23 History mL susp, extended rel IM syringe (Abilify Asimtufii) famotidine 40 mg tablet 40 mg PO HS 10/14/23 10/14/23 History gabapentin 300 mg capsule 300 mg PO TID 10/14/23 10/14/23 History haloperidol 10 mg tablet 10 mg PO HS 10/14/23 10/14/23 History insulin lispro 100 unit/mL 4 unit subcut BIDWMEAL 10/14/23 10/14/23 History subcutaneous pen (Humalog KwikPen (U-100) Insulin) linaclotide 290 mcg capsule 290 mcg PO QAM 10/14/23 10/14/23 History (Linzess) mirtazapine 15 mg tablet 15 mg PO HS 10/14/23 10/14/23 History nortriptyline 25 mg capsule 25 mg PO HS 10/14/23 10/14/23 History pantoprazole 40 mg tablet,delayed 40 mg PO QAM 10/14/23 10/14/23 History release sucralfate 1 gram tablet 1 g PO ACHS 10/14/23 10/14/23 History acetaminophen 650 mg 650 mg PO Q12H #10 tabs 10/15/23 Rx tablet,extended release (8 Hour Pain Reliever) lidocaine 5 % topical patch 1 patch topical DAILY #15 ea 10/15/23 Rx Hospital Stay Data Consultations 10/14/23 17:48 ED Decision to Admit Stat Diagnostic Imagining Performed 10/14/23 13:18 CT abd pelvis IV con only Stat CT cervical spine wo con Stat CT chest diagnostic w con Stat CT head/brain wo con Stat CT thoracic spine w con Stat Pending Results Patient Have Any Pending Studies at Discharge: No Discharge Instructions Given to Patient (Per Discharging Provider) You were admitted for fall and concern for syncope (passing out). It appears that you were dehydrated and your pressures are in a normal range without blood pressure medication. Your labs do not suggest infection; however, it was noted that your blood sugars are very high persistently which can lead to frequent urination and result in dehydration. Additionally it looks like you have multiple medications that were added to your regimen, as well as medications that can contribute to lower blood pressures and orthostatic hypotension (blood pressure that drops with position changes)--that includes the prazosin and the gabapentin, including others in your regimen. During your hospitalization, your lisinopril was discontinued. It is recommended you follow up with Psychiatry and PCP to discuss consolidating or if there are medications that can potentially be discontinued without detriment to your health and well being. It is recommended you follow up with your PCP to discuss further adjustments of your medications, including your insulin. Your A1C is 8.2% Total Time Total Time Spent Total Time Spent (In Minutes): 45
--- NOTE | 2023-10-17 12:58 | Electrocardiogram Report ---
Test Reason : Blood Pressure : / mmHG Vent. Rate : 103 BPM Atrial Rate : 103 BPM P-R Int : 142 ms QRS Dur : 078 ms QT Int : 326 ms P-R-T Axes : 054 050 031 degrees QTc Int : 427 ms Sinus tachycardia Otherwise normal ECG When compared with ECG of 24-JUN-2023 11:29, No significant change was found Confirmed by Steve Pathak ([id number]) on 10/17/2023 12:57:42 PM Referred By: Confirmed By:Steve Pathak
== END 2023-10-15 15:31 | disposition home or self-care (01) ==
LOC: ED 13:03 → EDINP 13:03